=== PATIENT | female | born 1945 | race Asian ===

== ENCOUNTER 2019-01-25 09:12 | Inpatient (IN) | payer MEDICARE ==
[2019-01-25 09:38] LABS: Basophils # (Auto) 0.1 K/mm3 (0.0-0.1); Basophils % (Auto) 1.5 % (0.0-1.8); Eosinophils # (Auto) 0.1 K/mm3 (0.0-0.4); Eosinophils % (Auto) 2.1 % (0.0-4.3); Hematocrit 27.9 % (30.3-42.9); Lymphocytes # (Auto) 0.7 K/mm3 (1.2-5.4); Lymphocytes % (Auto) 13.8 % (13.4-35.0); Mean Corpuscular HGB Conc 32 % (30-34); Mean Corpuscular Volume 90 fl (79-97); Monocytes # (Auto) 0.4 K/mm3 (0.0-0.8); Monocytes % (Auto) 7.3 % (0.0-7.3); Platelet Count 345 K/mm3 (140-440); Red Blood Count 3.09 M/mm3 (3.65-5.03)
[2019-01-25 10:01] LABS: Albumin 2.8 g/dL (3.9-5)
[2019-01-25 10:13] LABS: Calcium 5.6 mg/dL (8.4-10.2)
--- NOTE | 2019-01-25 11:12 | Emergency Department Report ---
ED General Adult HPI - General Chief complaint: High BP Stated complaint: KIDNEY DIALYSIS/DOC ORDERED Time Seen by Provider: 01/25/19 10:43 Source: patient Mode of arrival: Ambulatory Limitations: No Limitations - History of Present Illness Initial comments: 73-year-old female with a past medical history diabetes and hypertension presents to the Hospital complains of needing dialysis. Patient states that Dr. Mckeon sent her to the hospital for dialysis. After discussion with [facility] Nurse practitioner for Dr. Mckeon is seems that Dr. Mckeon has been trying to convince the patient since July that she needed to consider dialysis. Apparently recently she went Dr. Santiago for "second opinion was subsequently sent to the ER for treatment. Patient complains of feeling fatigued and tired but denies any pain or shortness of breath. Patient states she is not having about needing dialysis and is hopeful that she will get a kidney transplant. Severity scale (0 -10): 0 - Related Data Home Medications Medication Instructions Recorded Confirmed Last Taken Carvedilol [Coreg] 12.5 mg PO BID 10/05/16 10/05/16 Unknown Insulin NPH/Regular [Novolin 70/30] 20 unit SQ QAM 10/05/16 10/05/16 Unknown Levothyroxine [Synthroid] 50 mcg PO QAM 10/05/16 10/05/16 Unknown Lisinopril [Zestril] 40 mg PO QDAY 10/05/16 10/05/16 Unknown glipiZIDE [Glucotrol] 10 mg PO QDAY 10/05/16 10/05/16 Unknown Allergies Allergy/AdvReac Type Severity Reaction Status Date / Time No Known Allergies Allergy Unverified 10/05/16 15:27 ED Review of Systems ROS: Stated complaint: KIDNEY DIALYSIS/DOC ORDERED Other details as noted in HPI ED Past Medical Hx - Past Medical History Previous Medical History?: Yes Hx Hypertension: Yes Hx Diabetes: Yes Hx Renal Disease: Yes ("abnormal liver function") - Surgical History Past Surgical History?: Yes Additional Surgical History: - Social History Smoking Status: Never Smoker Substance Use Type: None - Medications Home Medications: Home Medications Medication Instructions Recorded Confirmed Last Taken Type Carvedilol [Coreg] 12.5 mg PO BID 10/05/16 10/05/16 Unknown History Insulin NPH/Regular [Novolin 70/30] 20 unit SQ QAM 10/05/16 10/05/16 Unknown History Levothyroxine [Synthroid] 50 mcg PO QAM 10/05/16 10/05/16 Unknown History Lisinopril [Zestril] 40 mg PO QDAY 10/05/16 10/05/16 Unknown History glipiZIDE [Glucotrol] 10 mg PO QDAY 10/05/16 10/05/16 Unknown History ED Physical Exam - General Limitations: No Limitations ED Course Vital Signs 01/25/19 09:22 Temperature 98.2 F Pulse Rate 71 Respiratory 16 Rate Blood Pressure 194/90 O2 Sat by Pulse 96 Oximetry - Consultations Consultation #1: 01/25/19 11:17 Case discussed with Pushpa TAO for Dr. Mckeon who confirmed that they sent patient did not send patient to the ER today but patient will need emergent dialysis 01/25/19 11:28 kary with vascular paged. 01/25/19 11:40 case d/w with kary who will evaluate pt to determine if access can be placed later today or tomorrow ED Medical Decision Making - Lab Data Result diagrams: 01/25/19 09:28 01/25/19 09:31 Lab Results 01/25/19 01/25/19 Range/Units 09:28 09:31 WBC 4.9 (4.5-11.0) K/mm3 RBC 3.09 L (3.65-5.03) M/mm3 Hgb 9.0 L (10.1-14.3) gm/dl Hct 27.9 L (30.3-42.9) % MCV 90 (79-97) fl MCH 29 (28-32) pg MCHC 32 (30-34) % RDW 16.0 H (13.2-15.2) % Plt Count 345 (140-440) K/mm3 Lymph % (Auto) 13.8 (13.4-35.0) % Harnett % (Auto) 7.3 (0.0-7.3) % Eos % (Auto) 2.1 (0.0-4.3) % Baso % (Auto) 1.5 (0.0-1.8) % Lymph # 0.7 L (1.2-5.4) K/mm3 Harnett # 0.4 (0.0-0.8) K/mm3 Eos # 0.1 (0.0-0.4) K/mm3 Baso # 0.1 (0.0-0.1) K/mm3 Seg Neutrophils % 75.3 H (40.0-70.0) % Seg Neutrophils # 3.7 (1.8-7.7) K/mm3 Sodium 139 (137-145) mmol/L Potassium 5.2 H (3.6-5.0) mmol/L Chloride 106.7 (98-107) mmol/L Carbon Dioxide 15 L (22-30) mmol/L Anion Gap 23 mmol/L BUN 103 H (7-17) mg/dL Creatinine 12.6 H (0.7-1.2) mg/dL Estimated GFR 3 ml/min BUN/Creatinine Ratio 8 % Glucose 161 H (65-100) mg/dL Calcium 5.6 L* (8.4-10.2) mg/dL Total Bilirubin 0.20 (0.1-1.2) mg/dL AST 37 (5-40) units/L ALT 103 H (7-56) units/L Alkaline Phosphatase 123 (35-129) units/L Total Protein 5.6 L (6.3-8.2) g/dL Albumin 2.8 L (3.9-5) g/dL Albumin/Globulin Ratio 1.0 % - Medical Decision Making Patient will be admitted to the hospital to initiate dialysis. Case discussed with Pushpa with Dr. Díaz and vascular consulted. NPO except for meds - Differential Diagnosis end-stage renal disease, hyperkalemia, volume overload Critical Care Time: No Critical care attestation.: If time is entered above; I have spent that time in minutes in the direct care of this critically ill patient, excluding procedure time. ED Disposition Clinical Impression: ESRD needing dialysis, Uremia, HTN (hypertension), Diabetes, Anemia Disposition: OP ADMIT IP TO THIS HOSP Is pt being admited?: Yes Condition: Stable Time of Disposition: 11:11 (Dr Diana/hosp)
[2019-01-25] MEDS ORDERED: NACL 0.9% 100 ML IV PRN (11:41)
[2019-01-25] MEDS ORDERED: TYLENOL PO PRN (11:47)
[2019-01-25] MEDS ORDERED: SODIUM CHLORIDE FLUSH SYRINGE 10 ML IV PRN (11:47)
[2019-01-25] MEDS ORDERED: KIONEX PO ONE (11:50)
[2019-01-25] MEDS ORDERED: APRESOLINE IV PRN (12:08)
--- NOTE | 2019-01-25 12:08 | History and Physical Report ---
History of Present Illness Chief complaint: I need dialysis History of present illness: 73 YO Female with ESRD previously non accepting of dialysis, HTN, DM presents to ED for evaluation. Pt states that she was informed several months ago that she needed dialysis but wanted to undergo kidney transplantation. Pt states that she has experienced nausea, fatigue, generalized weakness, and not feeling well over the past 1 month with worsening symptoms over the past. Pt awoke this morning "feeling bad" and decided to undergo dialysis as previously advised. Pt transported to [facility] ED via private vehicle. Pt seen and evaluated in ED and found to have ESRD, Acidosis, Hyperkalemia without EKG changes, and Anemia of Chronic Disease. Pt admitted to medical floor with remote telemetry. Nephrology consulted in ED. Vascular Surgery consulted for permacath placement. No prior admissions for review. All listed medication reconciled at time of admission. Pt denies fever, chills, CP, Palpitations, shortness of breath, leg swelling, calf pain, prolonged travel/immobility, individual/family history of DVT/PE/Blood Clotting Disorder, vertigo, headache, vision changes, extremity numbness, or recent ill contacts. Past History Past Medical History: diabetes, ESRD, hypertension, hypothyroidism Past Surgical History: Social history: . denies: smoking, alcohol abuse, prescription drug abuse Family history: diabetes, hypertension Medications and Allergies Allergies Allergy/AdvReac Type Severity Reaction Status Date / Time No Known Allergies Allergy Unverified 10/05/16 15:27 Home Medications Medication Instructions Recorded Confirmed Last Taken Type Carvedilol [Coreg] 25 mg PO BID 01/25/19 01/25/19 Unknown History Furosemide [Lasix TAB] 40 mg PO QDAY 01/25/19 01/25/19 Unknown History Hydralazine HCl 50 mg PO TID 01/25/19 01/25/19 Unknown History Insulin Glargine,Hum.rec.anlog 14 units SQ DAILY 01/25/19 01/25/19 Unknown History [Lantus] Levothyroxine [Synthroid] 75 mcg PO QAM 01/25/19 01/25/19 Unknown History Rosuvastatin Calcium 5 mg PO DAILY 01/25/19 01/25/19 Unknown History glipiZIDE [Glipizide] 5 mg PO DAILY 01/25/19 01/25/19 Unknown History Review of Systems Constitutional: no weight loss, no weight gain, no fever, no chills Ears, nose, mouth and throat: no ear pain, no ear discharge, no tinnitis, no decreased hearing, no nose pain Breasts: no change in shape, no swelling, no mass Cardiovascular: no chest pain, no orthopnea, no palpitations, no rapid/irregular heart beat, no edema Respiratory: no cough, no cough with sputum, no excessive sputum, no hemoptysis, no shortness of breath Gastrointestinal: nausea, no vomiting, no diarrhea, no constipation Genitourinary Female: no pelvic pain, no flank pain, no menorrhagia, no dysuria, no urinary frequency, no urgency Rectal: no pain, no incontinence, no bleeding Musculoskeletal: no neck pain, no shooting arm pain, no arm numbness/tingling, no low back pain, no shooting leg pain, no leg numbness/tingling Integumentary: no rash, no pruritis, no redness, no sores, no wounds Neurological: no paralysis, no weakness, no parathesias, no numbness, no tingling Psychiatric: no anxiety, no memory loss, no change in sleep habits, no sleep disturbances, no insomnia, no hypersomnia, no change in appetite Endocrine: no cold intolerance, no heat intolerance, no polyuria, no nocturia, no excessive sweating Hematologic/Lymphatic: no easy bruising, no easy bleeding, no lymphadenopathy, no lymphedema Allergic/Immunologic: no urticaria, no allergic rhinitis, no wheezing, no persistent infections, no anaphylaxis, no angioedema Exam - Constitutional Vitals: Temp Pulse Resp BP Pulse Ox 98.2 F 71 16 194/90 96 01/25/19 09:22 01/25/19 09:22 01/25/19 09:22 01/25/19 09:22 01/25/19 09:22 General appearance: Present: no acute distress - EENT Eyes: Present: PERRL ENT: hearing intact, clear oral mucosa - Neck Neck: Present: supple, normal ROM - Respiratory Respiratory effort: normal Respiratory: bilateral: CTA - Cardiovascular Heart Sounds: Present: S1 & S2. Absent: rub, click - Extremities Extremities: pulses symmetrical, No edema Peripheral Pulses: within normal limits - Abdominal General gastrointestinal: Present: soft, non-tender, non-distended, normal bowel sounds Female genitourinary: Present: normal - Integumentary Integumentary: Present: clear, warm, dry - Musculoskeletal Musculoskeletal: gait normal, strength equal bilaterally - Psychiatric Psychiatric: appropriate mood/affect, intact judgment & insight - Neurologic Neurologic: CNII-XII intact, moves all extremities Results - Labs CBC & Chem 7: 01/25/19 09:28 01/25/19 09:31 Labs: Abnormal lab results 01/25/19 01/25/19 Range/Units 09:28 09:31 RBC 3.09 L (3.65-5.03) M/mm3 Hgb 9.0 L (10.1-14.3) gm/dl Hct 27.9 L (30.3-42.9) % RDW 16.0 H (13.2-15.2) % Lymph # 0.7 L (1.2-5.4) K/mm3 Seg Neutrophils % 75.3 H (40.0-70.0) % Potassium 5.2 H (3.6-5.0) mmol/L Carbon Dioxide 15 L (22-30) mmol/L BUN 103 H (7-17) mg/dL Creatinine 12.6 H (0.7-1.2) mg/dL Glucose 161 H (65-100) mg/dL Calcium 5.6 L* (8.4-10.2) mg/dL ALT 103 H (7-56) units/L Total Protein 5.6 L (6.3-8.2) g/dL Albumin 2.8 L (3.9-5) g/dL Assessment and Plan - Patient Problems (1) ESRD needing dialysis Current Visit: Yes Status: Acute Plan to address problem: Nephrology consulted for dialysis, dialysis as per renal team, Vascular surgery consulted (2) Acidosis Current Visit: Yes Status: Acute Plan to address problem: IV sodium bicarbonate x 1, repeat bmp in am. (3) Diabetes Current Visit: Yes Status: Acute Plan to address problem: ADA diet, insulin, accu check, discontinue oral antihyperglycemic medication during hospital stay. (4) HTN (hypertension) Current Visit: Yes Status: Acute Qualifiers: Hypertension type: essential hypertension Qualified Code(s): I10 - Essential (primary) hypertension Plan to address problem: monitor BP q shift, continue prehospital antihypertensive therapy, IV hydralaz ine prn (5) Hyperkalemia Current Visit: Yes Status: Acute Plan to address problem: No EKG changes, kayexelate, Calcium gluconate, repeat bmp in am. (6) DVT prophylaxis Current Visit: Yes Status: Acute Plan to address problem: SCD to BLE while in bed, prophylactic heparin
[2019-01-25] MEDS ORDERED: D50W (25GM) Syringe IV PRN (12:09)
[2019-01-25] MEDS ORDERED: KIONEX ONE (12:20)
[2019-01-25 12:23] LABS: INR 0.95 (0.87-1.13)
[2019-01-25] MEDS ORDERED: CALCIUM GLUCONATE 1,000 MG in NACL 0.9% 100 ML IV ONE (12:30)
--- NOTE | 2019-01-25 15:31 | Consultation ---
<CLEMENTE OWENS - Last Filed: 01/25/19 15:26> History of Present Illness - Reason for Consult Consult date: 01/25/19 Provide Hemo-dialysis access Requesting physician: RUSSEL JONES - History of Present Illness This pt is a 73 yo female admitted via the ER due to progression of renal failure with need to begin hemodialysis. The pt has been followed by Nephrology service, who recommended the pt consider HD over the last 7 months. The pt has been resistant hoping her kidney function would improve. She was evaluated by another service for a second opinion, who agreed she would need to start HD. She was sent to the ER where she has since been admitted. A vascular surgery consult was requested to evaluated for Perma-cath insertion. Past History Past Medical History: diabetes, ESRD, hypertension, hypothyroidism Past Surgical History: , Other (Thyroidectomy, eye surgery due to hemorrhage and detatched retina ) Social history: . denies: smoking, alcohol abuse, prescription drug abuse Family history: diabetes, hypertension Medications and Allergies Allergies Allergy/AdvReac Type Severity Reaction Status Date / Time No Known Allergies Allergy Unverified 10/05/16 15:27 Home Medications Medication Instructions Recorded Confirmed Last Taken Type Carvedilol [Coreg] 25 mg PO BID 01/25/19 01/25/19 Unknown History Furosemide [Lasix TAB] 40 mg PO QDAY 01/25/19 01/25/19 Unknown History Hydralazine HCl 50 mg PO TID 01/25/19 01/25/19 Unknown History Insulin Glargine,Hum.rec.anlog 14 units SQ DAILY 01/25/19 01/25/19 Unknown History [Lantus] Levothyroxine [Synthroid] 75 mcg PO QAM 01/25/19 01/25/19 Unknown History Rosuvastatin Calcium 5 mg PO DAILY 01/25/19 01/25/19 Unknown History glipiZIDE [Glipizide] 5 mg PO DAILY 01/25/19 01/25/19 Unknown History Active Meds: Active Medications Acetaminophen (Tylenol) 650 mg PO Q4H PRN PRN Reason: Pain MILD(1-3)/Fever >100.5/DUNCAN Carvedilol (Coreg) 12.5 mg PO BID [facility] Dextrose (D50w (25gm) Syringe) 50 ml IV PRN PRN PRN Reason: Hypoglycemia Heparin Sodium (Porcine) (Heparin) 5,000 unit SUB-Q Q12HR [facility] Hydralazine HCl (Apresoline) 10 mg IV Q4HR PRN PRN Reason: HTN SYS>155 Sodium Chloride (Nacl 0.9%) 100 mls @ 999 mls/hr IV SANTOS PRN PRN Reason: Hypotension Insulin Human Lispro (Humalog) 0 unit SUB-Q Q6HR [facility]; Protocol Levothyroxine Sodium (Synthroid) 50 mcg PO DAILY@0600 [facility] Lisinopril (Zestril) 40 mg PO QDAY [facility] Ondansetron HCl (Zofran) 4 mg IV Q8H PRN PRN Reason: Nausea And Vomiting Sodium Chloride (Sodium Chloride Flush Syringe 10 Ml) 10 ml IV BID [facility]E Sodium Chloride (Sodium Chloride Flush Syringe 10 Ml) 10 ml IV PRN PRN PRN Reason: LINE FLUSH Review of Systems All systems: negative Exam - Constitutional Vitals: Temp Pulse Resp BP Pulse Ox 98.1 F 66 18 174/83 95 01/25/19 13:35 01/25/19 13:35 01/25/19 13:35 01/25/19 13:35 01/25/19 13:35 General appearance: Present: no acute distress - EENT Eyes: Present: EOM intact ENT: hearing intact - Neck Neck: Present: supple - Respiratory Respiratory effort: normal - Extremities Extremities: no ischemia, No edema - Psychiatric Psychiatric: appropriate mood/affect, intact judgment & insight, cooperative - Neurologic Neurologic: no focal deficits Results - Labs CBC & Chem 7: 01/25/19 09:28 01/25/19 09:31 Labs: Abnormal lab results 01/25/19 01/25/19 Range/Units 09:28 09:31 RBC 3.09 L (3.65-5.03) M/mm3 Hgb 9.0 L (10.1-14.3) gm/dl Hct 27.9 L (30.3-42.9) % RDW 16.0 H (13.2-15.2) % Lymph # 0.7 L (1.2-5.4) K/mm3 Seg Neutrophils % 75.3 H (40.0-70.0) % Potassium 5.2 H (3.6-5.0) mmol/L Carbon Dioxide 15 L (22-30) mmol/L BUN 103 H (7-17) mg/dL Creatinine 12.6 H (0.7-1.2) mg/dL Glucose 161 H (65-100) mg/dL Calcium 5.6 L* (8.4-10.2) mg/dL ALT 103 H (7-56) units/L Total Protein 5.6 L (6.3-8.2) g/dL Albumin 2.8 L (3.9-5) g/dL Assessment and Plan This pt was admitted via the ER due to ESRD needing to start HD. A vascular surgery consult was requested to evaluate for HD access/PermaCath. I explained the procedure, including all risk, benefits, and alternatives. We also discussed the risk of senior care catheter based HD. I explained that if she ultimately will need local intermodal truck driver HD, then we can evaluate her for fistula creation. She is right hand dominant, therefore I recommended no further venipunctures in her LUE. After contemplating the proposed procedure, she has agreed to proceed. This will be scheduled for the industrial laborer in the am. She will be NPO after [place] except meds. - Patient Problems (1) ESRD needing dialysis Current Visit: Yes Status: Acute (2) Hyperkalemia Current Visit: Yes Status: Acute (3) Diabetes Current Visit: Yes Status: Acute (4) HTN (hypertension) Current Visit: Yes Status: Acute Qualifiers: Hypertension type: essential hypertension Qualified Code(s): I10 - Essential (primary) hypertension (5) Uremia Current Visit: Yes Status: Acute (6) Anemia Current Visit: Yes Status: Acute <PRISCILA RENDON - Last Filed: 01/26/19 08:57> Medications and Allergies Active Meds: Active Medications Acetaminophen (Tylenol) 650 mg PO Q4H PRN PRN Reason: Pain MILD(1-3)/Fever >100.5/DUNCAN Calcium Carbonate/Glycine (Tums) 1,000 mg PO TID [facility] Last Admin: 01/25/19 21:13 Dose: 1,000 mg Documented by: Carvedilol (Coreg) 12.5 mg PO BID [facility] Last Admin: 01/25/19 22:22 Dose: 12.5 mg Documented by: Dextrose (D50w (25gm) Syringe) 50 ml IV PRN PRN PRN Reason: Hypoglycemia Last Admin: 01/26/19 06:37 Dose: 50 ml Documented by: Heparin Sodium (Porcine) (Heparin) 5,000 unit SUB-Q Q12HR [facility] Last Admin: 01/25/19 22:23 Dose: 5,000 unit Documented by: Hydralazine HCl (Apresoline) 10 mg IV Q4HR PRN PRN Reason: HTN SYS>155 Sodium Chloride (Nacl 0.9%) 100 mls @ 999 mls/hr IV SANTOS PRN PRN Reason: Hypotension Sodium Chloride (Nacl 0.9% 500 Ml) 500 mls @ 50 mls/hr IV DIRECT [facility] Last Admin: 01/26/19 08:35 Dose: 0 mls Documented by: Insulin Human Lispro (Humalog) 0 unit SUB-Q Q6HR [facility]; Protocol Last Admin: 01/26/19 06:41 Dose: Not Given Documented by: Levothyroxine Sodium (Synthroid) 50 mcg PO DAILY@0600 [facility] Last Admin: 01/26/19 06:02 Dose: Not Given Documented by: Lisinopril (Zestril) 40 mg PO QDAY [facility] Ondansetron HCl (Zofran) 4 mg IV Q8H PRN PRN Reason: Nausea And Vomiting Last Admin: 01/26/19 00:36 Dose: 4 mg Documented by: Sodium Chloride (Sodium Chloride Flush Syringe 10 Ml) 10 ml IV BID [facility] Last Admin: 01/25/19 22:24 Dose: 10 ml Documented by: Sodium Chloride (Sodium Chloride Flush Syringe 10 Ml) 10 ml IV PRN PRN PRN Reason: LINE FLUSH Exam - Constitutional Vitals: Temp Pulse Resp BP Pulse Ox 98.3 F 64 17 184/80 95 01/26/19 07:47 01/26/19 07:47 01/26/19 07:47 01/26/19 07:47 01/26/19 07:47 Results - Labs CBC & Chem 7: 01/25/19 09:28 01/25/19 09:31 Labs: Abnormal lab results 01/25/19 01/25/19 01/25/19 Range/Units 09:28 09:31 15:47 RBC 3.09 L (3.65-5.03) M/mm3 Hgb 9.0 L (10.1-14.3) gm/dl Hct 27.9 L (30.3-42.9) % RDW 16.0 H (13.2-15.2) % Lymph # 0.7 L (1.2-5.4) K/mm3 Seg Neutrophils % 75.3 H (40.0-70.0) % Potassium 5.2 H (3.6-5.0) mmol/L Carbon Dioxide 15 L (22-30) mmol/L BUN 103 H (7-17) mg/dL Creatinine 12.6 H (0.7-1.2) mg/dL Glucose 161 H (65-100) mg/dL POC Glucose 153 H (70-105) Calcium 5.6 L* (8.4-10.2) mg/dL ALT 103 H (7-56) units/L Total Protein 5.6 L (6.3-8.2) g/dL Albumin 2.8 L (3.9-5) g/dL PTH Intact (15-65) pg/mL 01/25/19 01/25/19 01/25/19 Range/Units 16:11 16:28 23:05 RBC (3.65-5.03) M/mm3 Hgb (10.1-14.3) gm/dl Hct (30.3-42.9) % RDW (13.2-15.2) % Lymph # (1.2-5.4) K/mm3 Seg Neutrophils % (40.0-70.0) % Potassium (3.6-5.0) mmol/L Carbon Dioxide (22-30) mmol/L BUN (7-17) mg/dL Creatinine (0.7-1.2) mg/dL Glucose (65-100) mg/dL POC Glucose 128 H 168 H (70-105) Calcium (8.4-10.2) mg/dL ALT (7-56) units/L Total Protein (6.3-8.2) g/dL Albumin (3.9-5) g/dL PTH Intact 268.2 H (15-65) pg/mL 01/26/19 01/26/19 01/26/19 Range/Units 00:36 06:25 07:03 RBC (3.65-5.03) M/mm3 Hgb (10.1-14.3) gm/dl Hct (30.3-42.9) % RDW (13.2-15.2) % Lymph # (1.2-5.4) K/mm3 Seg Neutrophils % (40.0-70.0) % Potassium (3.6-5.0) mmol/L Carbon Dioxide (22-30) mmol/L BUN (7-17) mg/dL Creatinine (0.7-1.2) mg/dL Glucose (65-100) mg/dL POC Glucose 119 H 61 L 185 H (70-105) Calcium (8.4-10.2) mg/dL ALT (7-56) units/L Total Protein (6.3-8.2) g/dL Albumin (3.9-5) g/dL PTH Intact (15-65) pg/mL Assessment and Plan Review with assessment and conclusions. Permacath will be placed for initiation of dialysis.
--- NOTE | 2019-01-25 15:50 | Consultation ---
History of Present Illness - Reason for Consult Consult date: 01/25/19 end stage renal disease Requesting physician: RICHARD PALACIOS - History of Present Illness 73 YO Female with ESRD previously non accepting of dialysis, HTN, DM presents to ED for evaluation. Pt states that she was informed several months ago that she needed dialysis but wanted to undergo kidney transplantation. Pt states that she has experienced nausea, fatigue, generalized weakness, and not feeling well over the past 1 month with worsening symptoms over the past. Pt awoke this morning "feeling bad" and decided to undergo dialysis as previously advised. Pt transported to [facility] ED via private vehicle. Pt seen and evaluated in ED and found to have ESRD, Acidosis, Hyperkalemia without EKG changes, and Anemia of Chronic Disease. Pt admitted to medical floor with remote telemetry. Nephrology con sulted in ED. Vascular Surgery consulted for permacath placement. No prior admissions for review. All listed medication reconciled at time of admission. Pt denies fever, chills, CP, Palpitations, shortness of breath, leg swelling, calf pain, prolonged travel/immobility, individual/family history of DVT/PE/Blood Clotting Disorder, vertigo, headache, vision changes, extremity numbness, or recent ill contacts. Past History Past Medical History: diabetes, ESRD, hypertension, hypothyroidism Past Surgical History: Social history: . denies: smoking, alcohol abuse, prescription drug abuse Family history: diabetes, hypertension Medications and Allergies Allergies Allergy/AdvReac Type Severity Reaction Status Date / Time No Known Allergies Allergy Unverified 10/05/16 15:27 Home Medications Medication Instructions Recorded Confirmed Last Taken Type Carvedilol [Coreg] 25 mg PO BID 01/25/19 01/25/19 Unknown History Furosemide [Lasix TAB] 40 mg PO QDAY 01/25/19 01/25/19 Unknown History Hydralazine HCl 50 mg PO TID 01/25/19 01/25/19 Unknown History Insulin Glargine,Hum.rec.anlog 14 units SQ DAILY 01/25/19 01/25/19 Unknown History [Lantus] Levothyroxine [Synthroid] 75 mcg PO QAM 01/25/19 01/25/19 Unknown History Rosuvastatin Calcium 5 mg PO DAILY 01/25/19 01/25/19 Unknown History glipiZIDE [Glipizide] 5 mg PO DAILY 01/25/19 01/25/19 Unknown History Review of Systems Constitutional: no weight loss, no weight gain, no fever, no chills Ears, nose, mouth and throat: no ear pain, no ear discharge, no tinnitis, no decreased hearing, no nose pain Breasts: no change in shape, no swelling, no mass Cardiovascular: no chest pain, no orthopnea, no palpitations, no rapid/irregular heart beat, no edema Respiratory: no cough, no cough with sputum, no excessive sputum, no hemoptysis, no shortness of breath Gastrointestinal: nausea, no vomiting, no diarrhea, no constipation Genitourinary Female: no pelvic pain, no flank pain, no menorrhagia, no dysuria, no urinary frequency, no urgency Rectal: no pain, no incontinence, no bleeding Musculoskeletal: no neck pain, no shooting arm pain, no arm numbness/tingling, no low back pain, no shooting leg pain, no leg numbness/tingling Integumentary: no rash, no pruritis, no redness, no sores, no wounds Neurological: no paralysis, no weakness, no parathesias, no numbness, no tingling Psychiatric: no anxiety, no memory loss, no change in sleep habits, no sleep disturbances, no insomnia, no hypersomnia, no change in appetite Endocrine: no cold intolerance, no heat intolerance, no polyuria, no nocturia, no excessive sweating Hematologic/Lymphatic: no easy bruising, no easy bleeding, no lymphadenopathy, no lymphedema Allergic/Immunologic: no urticaria, no allergic rhinitis, no wheezing, no persistent infections, no anaphylaxis, no angioedema Past History Past Medical History: diabetes, ESRD, hypertension, hypothyroidism Past Surgical History: , Other (Thyroidectomy, eye surgery due to hemorrhage and detatched retina ) Social history: . denies: smoking, alcohol abuse, prescription drug abuse Family history: diabetes, hypertension Medications and Allergies Allergies Allergy/AdvReac Type Severity Reaction Status Date / Time No Known Allergies Allergy Unverified 10/05/16 15:27 Home Medications Medication Instructions Recorded Confirmed Last Taken Type Carvedilol [Coreg] 25 mg PO BID 01/25/19 01/25/19 Unknown History Furosemide [Lasix TAB] 40 mg PO QDAY 01/25/19 01/25/19 Unknown History Hydralazine HCl 50 mg PO TID 01/25/19 01/25/19 Unknown History Insulin Glargine,Hum.rec.anlog 14 units SQ DAILY 01/25/19 01/25/19 Unknown History [Lantus] Levothyroxine [Synthroid] 75 mcg PO QAM 01/25/19 01/25/19 Unknown History Rosuvastatin Calcium 5 mg PO DAILY 01/25/19 01/25/19 Unknown History glipiZIDE [Glipizide] 5 mg PO DAILY 01/25/19 01/25/19 Unknown History Active Meds: Active Medications Acetaminophen (Tylenol) 650 mg PO Q4H PRN PRN Reason: Pain MILD(1-3)/Fever >100.5/DUNCAN Carvedilol (Coreg) 12.5 mg PO BID FEDE Dextrose (D50w (25gm) Syringe) 50 ml IV PRN PRN PRN Reason: Hypoglycemia Heparin Sodium (Porcine) (Heparin) 5,000 unit SUB-Q Q12HR FEDE Hydralazine HCl (Apresoline) 10 mg IV Q4HR PRN PRN Reason: HTN SYS>155 Sodium Chloride (Nacl 0.9%) 100 mls @ 999 mls/hr IV SANTOS PRN PRN Reason: Hypotension Insulin Human Lispro (Humalog) 0 unit SUB-Q Q6HR FEDE; Protocol Levothyroxine Sodium (Synthroid) 50 mcg PO DAILY@0600 FEDE Lisinopril (Zestril) 40 mg PO QDAY FEDE Ondansetron HCl (Zofran) 4 mg IV Q8H PRN PRN Reason: Nausea And Vomiting Sodium Chloride (Sodium Chloride Flush Syringe 10 Ml) 10 ml IV BID FEDE Sodium Chloride (Sodium Chloride Flush Syringe 10 Ml) 10 ml IV PRN PRN PRN Reason: LINE FLUSH Exam - Vital Signs Vital signs: Vital Signs Temp Pulse Resp BP Pulse Ox 98.2 F 71 16 194/90 96 01/25/19 09:22 01/25/19 09:22 01/25/19 09:22 01/25/19 09:22 01/25/19 09:22 - Physical Exam Narrative exam: General appearance: Present: no acute distress - EENT Eyes: Present: PERRL ENT: hearing intact, clear oral mucosa - Neck Neck: Present: supple, normal ROM - Respiratory Respiratory effort: normal Respiratory: bilateral: CTA - Cardiovascular Heart Sounds: Present: S1 & S2. Absent: rub, click - Extremities Extremities: pulses symmetrical, No edema Peripheral Pulses: within normal limits - Abdominal General gastrointestinal: Present: soft, non-tender, non-distended, normal bowel sounds Female genitourinary: Present: normal - Integumentary Integumentary: Present: clear, warm, dry - Musculoskeletal Musculoskeletal: gait normal, strength equal bilaterally - Psychiatric Psychiatric: appropriate mood/affect, intact judgment & insight - Neurologic Neurologic: CNII-XII intact, moves all extremities Results - Lab Results 01/25/19 09:28 01/25/19 09:31 Most recent lab results Calcium 5.6 mg/dL (8.4-10.2) L* 01/25/19 09:31 Assessment and Plan IMpression: * ESRD * Uremia * HTN * anemia in ESRD PLan: * intiated hemodialysis after access placement * outpatient hd placement * strict i/o * uf with hd as tolerated * daily lytes * epogen with HD * home once hd unit arranged
[2019-01-25 17:26] LABS: Hepatitis B Surface Antigen Non-Reactive (Negative); Hepatitis C Virus Antibody Non-Reactive (NonReactive)
[2019-01-25] MEDS: TUMS PO SCH (21:13)
[2019-01-25] MEDS: COREG PO SCH (22:22)
[2019-01-25] MEDS: HEPARIN SUB-Q SCH (22:23)
[2019-01-25] MEDS: SODIUM CHLORIDE FLUSH SYRINGE 10 ML IV SCH (22:24)
[2019-01-25] MEDS: HumaLOG SUB-Q SCH (23:21)
[2019-01-26] MEDS: ZOFRAN IV PRN (00:36)
[2019-01-26] MEDS ORDERED: SYNTHROID PO SCH (06:00)
[2019-01-26] MEDS: HumaLOG SUB-Q SCH ×4 (06:41→22:53)
[2019-01-26] MEDS ORDERED: NACL 0.9% 500 ML 500 ML IV SCH (08:00)
[2019-01-26] MEDS ORDERED: VERSED ONE (08:16)
[2019-01-26] MEDS ORDERED: SUBLIMAZE ONE (08:16)
[2019-01-26] MEDS ORDERED: HEPARIN/NS 5000 UNIT/500ML(CATH LAB) 500 ML IR ONE (08:17)
[2019-01-26] MEDS ORDERED: XYLOCAINE 1%/ EPI 1:100,000 INFILTRATI ONE (08:18)
[2019-01-26] MEDS ORDERED: ANCEF/STERILE WATER 2 GM/20 ML 2 GM/20 ML SYRINGE IV ONE (08:19)
[2019-01-26] MEDS: HEPARIN 10,000 UNITS/10 ML ONE ×2 (08:49→08:50)
--- NOTE | 2019-01-26 08:59 | Operative Report ---
Operative Report Operative Report: Date of procedure: 01/26/2019 Pre-operative diagnosis: ESRD Post-operative diagnosis: same Procedure name(s): 1. US guided puncture of the right internal jugular vein 2. Placement of right internal jugular permacath (Glidepath 19 cm) 3. Fluoroscopic supervision Surgeon: Demetrius Dominguez MD, FACS Recordak Operator: none Anesthesia: local with sedation; Sedation start: 834 Sedation end: 08 Total sedation time: 20 or 2 anesthesia units EBL: minimal Operative indication: Patient is a 73 yo woman who requires hemodialysis access. Findings: Good flow from both ports. Catheter located at the cavoatrial junction. Procedure: The patient was placed on the table in the supine position. The area over the right neck and chest was prepped with ChloraPrep solution and draped in usual sterile fashion. 2% lidocaine was used for local anesthesia. Under real-time ultrasound guidance the right internal jugular vein was identified and cannulated. A guidewire was advanced into the central circulation. A tunnel was made over the anterior chest using the tunneling device in the kit. The catheter was then tunneled between the 2 incisions. Using a series of dilators, the track into the jugular vein was dilated. The introducer sheath was then placed. The catheter was placed through the introducer sheath which was then removed. The catheter tip was placed at the cavoatrial junction. The catheters were aspirated with excellent flow from both ports. Both ports flushed easily. They were then filled to their stated volume with 1000 unit per milliliter heparin. Closure at the insertion site was done with 4-0 subcuticular PDS. The catheter was sewn to the skin with 2-0 Proline. Sterile dressings were applied. The patient tolerated the procedure well.
[2019-01-26] MEDS: TUMS PO SCH ×3 (09:08→21:21)
--- NOTE | 2019-01-26 10:47 | Progress Note ---
Assessment and Plan Assessment and plan: 73F w pmh of ESRD who was previously refusing dialysis, presents with worsening Uremia. 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 soft drink powder mixer consult cont SSI, restarted home lantus, fup a1c dvt ppx- heparin History Interval history: Review of systems Constitutional: No fevers, no malaise, no joint pains CVS: No chest pain, no orthopnea, no dyspnea on exertion, no pedal edema GI: No abdominal pain, no diarrhea, no vomiting, no constipation Respiratory: No shortness of breath, no wheezing, no coughing Hospitalist Physical - Physical exam Narrative exam: General.: Appears well, no distress, nontoxic HEENT: Moist mucous membranes, extraocular muscles intact, no lymphadenopathy Neck: supple Cardiac: S1-S2 heard Lungs: clear to auscultation bilaterally Abdomen: soft , nontender, nondistended, bowel sounds positive Extremities: no edema clubbing or cyanosis Skin: no rash or lesions Neurologic: no gross focal deficits Psych: calm, and cooperative - Constitutional Vitals: Temp Pulse Resp BP Pulse Ox 98.5 F 58 L 14 190/90 92 01/26/19 09:10 01/26/19 10:15 01/26/19 10:15 01/26/19 10:15 01/26/19 10:15 General appearance: Present: no acute distress Results - Labs CBC & Chem 7: 01/25/19 09:28 01/25/19 09:31 Labs: Laboratory Last Values WBC 4.9 K/mm3 (4.5-11.0) 01/25/19 09:28 RBC 3.09 M/mm3 (3.65-5.03) L 01/25/19 09:28 Hgb 9.0 gm/dl (10.1-14.3) L 01/25/19 09:28 Hct 27.9 % (30.3-42.9) L 01/25/19 09:28 MCV 90 fl (79-97) 01/25/19 09:28 MCH 29 pg (28-32) 01/25/19 09:28 MCHC 32 % (30-34) 01/25/19 09:28 RDW 16.0 % (13.2-15.2) H 01/25/19 09:28 Plt Count 345 K/mm3 (140-440) 01/25/19 09:28 Lymph % (Auto) 13.8 % (13.4-35.0) 01/25/19 09:28 [place] % (Auto) 7.3 % (0.0-7.3) 01/25/19 09:28 Eos % (Auto) 2.1 % (0.0-4.3) 01/25/19 09:28 Baso % (Auto) 1.5 % (0.0-1.8) 01/25/19 09:28 Lymph # 0.7 K/mm3 (1.2-5.4) L 01/25/19 09:28 [place] # 0.4 K/mm3 (0.0-0.8) 01/25/19 09:28 Eos # 0.1 K/mm3 (0.0-0.4) 01/25/19 09:28 Baso # 0.1 K/mm3 (0.0-0.1) 01/25/19 09:28 Seg Neutrophils % 75.3 % (40.0-70.0) H 01/25/19 09:28 Seg Neutrophils # 3.7 K/mm3 (1.8-7.7) 01/25/19 09:28 PT 13.3 Sec. (12.2-14.9) 01/25/19 11:55 INR 0.95 (0.87-1.13) 01/25/19 11:55 Sodium 139 mmol/L (137-145) 01/25/19 09:31 Potassium 5.2 mmol/L (3.6-5.0) H 01/25/19 09:31 Chloride 106.7 mmol/L (98-107) 01/25/19 09:31 Carbon Dioxide 15 mmol/L (22-30) L 01/25/19 09:31 Anion Gap 23 mmol/L 01/25/19 09:31 BUN 103 mg/dL (7-17) H 01/25/19 09:31 Creatinine 12.6 mg/dL (0.7-1.2) H 01/25/19 09:31 Estimated GFR 3 ml/min 01/25/19 09:31 BUN/Creatinine Ratio 8 % 01/25/19 09:31 Glucose 161 mg/dL (65-100) H 01/25/19 09:31 POC Glucose 185 (70-105) H 01/26/19 07:03 Calcium 5.6 mg/dL (8.4-10.2) L* 01/25/19 09:31 Total Bilirubin 0.20 mg/dL (0.1-1.2) 01/25/19 09:31 AST 37 units/L (5-40) 01/25/19 09:31 ALT 103 units/L (7-56) H 01/25/19 09:31 Alkaline Phosphatase 123 units/L (35-129) 01/25/19 09:31 Total Protein 5.6 g/dL (6.3-8.2) L 01/25/19 09:31 Albumin 2.8 g/dL (3.9-5) L 01/25/19 09:31 Albumin/Globulin Ratio 1.0 % 01/25/19 09:31 PTH Intact 268.2 pg/mL (15-65) H 01/25/19 16:11 Hepatitis A IgM Ab Non-reactive (NonReactive) 01/25/19 16:11 Hep Bs Antigen Non-reactive (Negative) 01/25/19 16:11 Hep B Core IgM Ab Non-reactive (NonReactive) 01/25/19 16:11 Hepatitis C Antibody Non-reactive (NonReactive) 01/25/19 16:11 Active Medications - Current Medications Current Medications: Generic Name Dose Route Start Last Admin Trade Name Freq PRN Reason Stop Dose Admin Acetaminophen 650 mg 01/25/19 11:47 Tylenol PO Q4H PRN Pain MILD(1-3)/Fever >100.5/DUNCAN Calcium Carbonate/Glycine 1,000 mg 01/25/19 20:00 01/26/19 09:08 Tums PO Not Given TID FEDE Carvedilol 12.5 mg 01/25/19 22:00 01/25/19 22:22 Coreg PO 12.5 mg BID FEDE Administration Dextrose 50 ml 01/25/19 12:09 01/26/19 06:37 D50w (25gm) Syringe IV 50 ml PRN PRN Administration Hypoglycemia Heparin Sodium (Porcine) 5,000 unit 01/26/19 14:00 Heparin SUB-Q Q8HR [facility] Hydralazine HCl 10 mg 01/25/19 12:08 Apresoline IV Q4HR PRN HTN SYS>155 Sodium Chloride 100 mls @ 999 mls/hr 01/25/19 11:41 Nacl 0.9% IV SANTOS PRN Hypotension Sodium Chloride 500 mls @ 50 mls/hr 01/26/19 08:00 01/26/19 08:35 Nacl 0.9% 500 Ml IV 0 mls DIRECT FEDE Administration Insulin Human Lispro 0 unit 01/25/19 18:00 01/26/19 06:41 Humalog SUB-Q Not Given Q6HR [facility] Protocol Levothyroxine Sodium 50 mcg 01/26/19 06:00 01/26/19 06:02 Synthroid PO Not Given DAILY@0600 [facility] Lisinopril 40 mg 01/26/19 10:00 Zestril PO QDAY [facility] Ondansetron HCl 4 mg 01/25/19 11:47 01/26/19 00:36 Zofran IV 4 mg Q8H PRN Administration Nausea And Vomiting Sodium Chloride 10 ml 01/25/19 22:00 01/25/19 22:24 Sodium Chloride Flush Syringe 10 Ml IV 10 ml BID FEDE Administration Sodium Chloride 10 ml 01/25/19 11:47 Sodium Chloride Flush Syringe 10 Ml IV PRN PRN LINE FLUSH
[2019-01-26] MEDS ORDERED: APRESOLINE ONE (11:06)
[2019-01-26] MEDS ORDERED: NACL 0.9% 500 ML 500 ML ONE (11:14)
[2019-01-26] MEDS ORDERED: APRESOLINE IV PRN (11:26)
--- NOTE | 2019-01-26 12:49 | XRay Report ---
ROUTINE CHEST, TWO VIEWS: HISTORY: Short of breath. Mild cardiomegaly, mild pulmonary venous congestion and small to medium left pleural effusion are identified. No obvious infiltrate. No pneumothorax. Right IJ dual-lumen catheter terminates in the superior right atrium. IMPRESSION: Mild volume overload/CHF.
[2019-01-26] MEDS ORDERED: NON-FORMULARY (Hydralazine Hcl [Hydralazine Hcl] 50 MG) PO SCH (14:00)
--- NOTE | 2019-01-26 15:04 | Progress Note ---
Assessment and Plan Impression: * ESRD * Uremia * Hypocalcemia * Secondary hyperparathyroidism * Anemia in ESRD * Hypertension * Type II DM PLan: * Daily HD x 3 - 1st treatment today * UF as tolerated - patient continues to make urine * Start Epogen TIW prn * Start Calcitriol 0.5mcg daily * CM consulted for outpatient dialysis clinic placement * Stable for d/c to home once outpatient HD arranged Subjective Date of service: 01/26/19 Interval history: Patient is s/p first HD treatment today. She has no complaints. States dialysis went well. Objective - Vital Signs Vital signs: Vital Signs - 12hr 01/26/19 01/26/19 01/26/19 06:13 07:47 09:10 Temperature 98.7 F 98.3 F 98.5 F Pulse Rate 69 64 61 Respiratory 20 17 13 Rate Blood Pressure 161/79 182/76 Blood Pressure 184/80 [Left] O2 Sat by Pulse 92 95 100 Oximetry 01/26/19 01/26/19 01/26/19 09:25 09:45 10:00 Temperature Pulse Rate 59 L 58 L 66 Respiratory 14 16 18 Rate Blood Pressure 157/73 157/70 170/79 Blood Pressure [Left] O2 Sat by Pulse 100 100 93 Oximetry 01/26/19 01/26/19 01/26/19 10:15 10:54 11:06 Temperature Pulse Rate 58 L 61 59 L Respiratory 14 10 L Rate Blood Pressure 190/90 195/86 197/89 Blood Pressure [Left] O2 Sat by Pulse 92 92 Oximetry 01/26/19 01/26/19 01/26/19 11:08 11:15 11:29 Temperature Pulse Rate 60 62 64 Respiratory 17 12 16 Rate Blood Pressure 197/89 180/77 152/58 Blood Pressure [Left] O2 Sat by Pulse 94 94 94 Oximetry 01/26/19 01/26/19 01/26/19 11:57 12:30 14:00 Temperature 97.6 F 98.2 F Pulse Rate 66 67 69 Respiratory 15 18 18 Rate Blood Pressure 171/74 156/75 175/88 Blood Pressure [Left] O2 Sat by Pulse 95 95 Oximetry - General Appearance General appearance: well-developed, well-nourished EENT: ATNC Respiratory: Present: Clear to Ascultation Cardiology: regular, S1S2 Gastrointestinal: normal, no tenderness, no distended Integumentary: no rash, warm and dry Neurologic: no focal deficit Musculoskeletal: other (no edema) Psychiatric: cooperative - Lab 01/25/19 09:28 01/25/19 09:31 Most recent lab results Calcium 5.6 mg/dL (8.4-10.2) L* 01/25/19 09:31 Medications & Allergies - Medications Allergies/Adverse Reactions: Allergies No Known Allergies Allergy (Unverified 10/05/16 15:27) Home Medications: Home Medications Medication Instructions Recorded Confirmed Last Taken Type Carvedilol [Coreg] 25 mg PO BID 01/25/19 01/25/19 Unknown History Furosemide [Lasix TAB] 40 mg PO QDAY 01/25/19 01/25/19 Unknown History Hydralazine HCl 50 mg PO TID 01/25/19 01/25/19 Unknown History Insulin Glargine,Hum.rec.anlog 14 units SQ DAILY 01/25/19 01/25/19 Unknown History [Lantus] Levothyroxine [Synthroid] 75 mcg PO QAM 01/25/19 01/25/19 Unknown History Rosuvastatin Calcium 5 mg PO DAILY 01/25/19 01/25/19 Unknown History glipiZIDE [Glipizide] 5 mg PO DAILY 01/25/19 01/25/19 Unknown History Active Medications: Generic Name Dose Route Start Last Admin Trade Name Freq PRN Reason Stop Dose Admin Acetaminophen 650 mg 01/25/19 11:47 Tylenol PO Q4H PRN Pain MILD(1-3)/Fever >100.5/DUNCAN Atorvastatin Calcium 10 mg 01/26/19 22:00 Lipitor PO QHS [facility] Calcium Carbonate/Glycine 1,000 mg 01/25/19 20:00 01/26/19 09:08 Tums PO Not Given TID [facility] Carvedilol 25 mg 01/26/19 22:00 Coreg PO BID FEDE Dextrose 50 ml 01/25/19 12:09 01/26/19 06:37 D50w (25gm) Syringe IV 50 ml PRN PRN Administration Hypoglycemia Furosemide 40 mg 01/27/19 06:00 Lasix PO DAILY@0600 FEDE Heparin Sodium (Porcine) 5,000 unit 01/26/19 14:00 Heparin SUB-Q Q8HR [facility] Hydralazine HCl 10 mg 01/25/19 12:08 01/26/19 11:06 Apresoline IV 10 mg Q4HR PRN Administration HTN SYS>155 Hydralazine HCl 50 mg 01/26/19 14:00 Apresoline PO Q8HR [facility] Hydralazine HCl 10 mg 01/26/19 11:26 Apresoline IV Q4HR PRN BP >160/100 Sodium Chloride 100 mls @ 999 mls/hr 01/25/19 11:41 Nacl 0.9% IV SANTOS PRN Hypotension Sodium Chloride 500 mls @ 50 mls/hr 01/26/19 08:00 01/26/19 08:35 Nacl 0.9% 500 Ml IV 0 mls DIRECT FEDE Administration Insulin Glargine 14 units 01/26/19 22:00 Lantus SUB-Q QHS [facility] Insulin Human Lispro 0 unit 01/26/19 11:30 01/26/19 13:00 Humalog SUB-Q Not Given ACHS [facility] Protocol Levothyroxine Sodium 75 mcg 01/27/19 06:00 Synthroid PO DAILY@0600 [facility] Lisinopril 40 mg 01/26/19 10:00 Zestril PO QDAY [facility] Nifedipine 60 mg 01/26/19 12:00 Procardia Xl PO Q12HR [facility] Ondansetron HCl 4 mg 01/25/19 11:47 01/26/19 00:36 Zofran IV 4 mg Q8H PRN Administration Nausea And Vomiting Sodium Chloride 10 ml 01/25/19 22:00 01/25/19 22:24 Sodium Chloride Flush Syringe 10 Ml IV 10 ml BID FEDE Administration Sodium Chloride 10 ml 01/25/19 11:47 Sodium Chloride Flush Syringe 10 Ml IV PRN PRN LINE FLUSH
[2019-01-26] MEDS: APRESOLINE PO SCH ×2 (16:49→21:21)
[2019-01-26] MEDS: HEPARIN SUB-Q SCH ×3 (16:51→21:20)
[2019-01-26] MEDS: PROCARDIA XL PO SCH ×2 (16:56→21:22)
[2019-01-26] MEDS: ZESTRIL PO SCH (16:56)
[2019-01-26] MEDS: SODIUM CHLORIDE FLUSH SYRINGE 10 ML IV SCH ×2 (16:57→21:25)
[2019-01-26] MEDS ORDERED: NACL 0.9 (PRIMING MACHINE ONLY DIALYSIS) MC ONE (18:02)
[2019-01-26] MEDS: COREG PO SCH ×2 (18:25→21:23)
[2019-01-26] MEDS ORDERED: NACL 0.9% 100 ML IV PRN (18:44)
[2019-01-26] MEDS ORDERED: PROCRIT IV PRN (18:44)
[2019-01-26] MEDS ORDERED: HEPARIN IV PRN (18:44)
[2019-01-26] MEDS: ROCALTROL PO SCH (21:22)
[2019-01-26] MEDS: LANTUS SUB-Q SCH (21:23)
--- NOTE | 2019-01-26 21:51 | Vascular Lab Report ---
PROCEDURE: BILATERAL UPPER EXTREMITY VEIN MAPPING TECHNIQUE: Duplex Doppler ultrasound of the BILATERAL upper extremity veins and incompetent perforat ors was attempted. Cristobal scale imaging with and without compression, spectral waveform analysis with a nd without augmentation, and color flow Doppler were employed. CPT 25974 HISTORY: . Preparation for vein harvesting. COMPARISONS: None . FINDINGS: RIGHT UPPER EXTREMITY: Brachial artery: 4.1 mm. 46.9 cm/s PSV Radial artery: 2.3 mm. PSV 45 cm/s Ulnar artery: 1.7 mm. PSV 36.2 cm/s Triphasic arterial waveforms are noted. BASILIC Vein Upper Arm: Proximal diameter: 3.5 mm Mid diameter: 3.1 mm Distal diameter: Unable to visualize due to the presence of IV line Antecubital fossa: 3.1 mm BASILIC Vein Forearm: Proximal diameter: 1.7 mm CEPHALIC Vein Upper Arm: Proximal diameter: 3.3 mm Mid diameter: 3.3 mm Distal diameter: 4.0 mm Antecubital fossa: 4.0 mm CEPHALIC Vein Forearm: Proximal diameter: 2.9 mm Mid diameter: 2.5 mm Distal diameter: 2.3 mm LEFT UPPER EXTREMITY: Brachial artery: 4.4 mm. PSV 47.4 cm/s. Radial artery: 2.5 mm. PSV 47.4 cm/s Ulnar artery: 2.2 mm. PSV 41.6 cm/s Triphasic arterial waveforms are noted. BASILIC Vein Upper Arm: Proximal diameter: 3.7 mm Mid diameter: 3.2 mm Distal diameter: 2.5 mm Antecubital fossa: 1.7 mm CEPHALIC Vein Upper Arm: Proximal diameter: 3.0 mm Mid diameter: 3.4 mm Distal diameter: 3.3 mm Antecubital fossa: 3.1 mm CEPHALIC Vein Forearm: Proximal diameter: 1.6 mm Mid diameter: 1.2 mm Distal diameter: 1.2 mm IMPRESSION: Venous mapping measurements as detailed above.. This document is electronically signed by Chas Christianson MD., January 26 2019 09:49:03 PM ET
[2019-01-27] MEDS: HEPARIN SUB-Q SCH ×3 (05:49→22:05)
[2019-01-27] MEDS: LASIX PO SCH (05:50)
[2019-01-27] MEDS: SYNTHROID PO SCH (05:50)
[2019-01-27] MEDS: APRESOLINE PO SCH ×3 (05:51→22:07)
[2019-01-27] MEDS: HumaLOG SUB-Q SCH ×4 (07:20→22:08)
[2019-01-27] MEDS: TUMS PO SCH ×3 (07:45→22:04)
[2019-01-27] MEDS: ZOFRAN IV PRN (07:48)
[2019-01-27] MEDS ORDERED: ROSUVASTATIN CALCIUM 5 MG PO SCH (10:00)
--- NOTE | 2019-01-27 10:31 | Progress Note ---
Assessment and Plan Impression: * ESRD * Uremia * Hypocalcemia * Secondary hyperparathyroidism * Anemia in ESRD * Hypertension * Type II DM PLan: * Daily HD x 3 - 2cd treatment today * UF as tolerated - patient continues to make urine * Epogen TIW prn * Calcitriol 0.5mcg daily * CM consulted for outpatient dialysis clinic placement * Stable for d/c to home once outpatient HD arranged Subjective Date of service: 01/27/19 Principal diagnosis: esrd Interval history: resting in bed today Objective - Exam Narrative Exam: General appearance: Present: no acute distress - EENT Eyes: Present: PERRL ENT: hearing intact, clear oral mucosa - Neck Neck: Present: supple, normal ROM - Respiratory Respiratory effort: normal Respiratory: bilateral: CTA - Cardiovascular Heart Sounds: Present: S1 & S2. Absent: rub, click - Extremities Extremities: pulses symmetrical, No edema Peripheral Pulses: within normal limits - Abdominal General gastrointestinal: Present: soft, non-tender, non-distended, normal bowel sounds Female genitourinary: Present: normal - Integumentary Integumentary: Present: clear, warm, dry - Musculoskeletal Musculoskeletal: gait normal, strength equal bilaterally - Psychiatric Psychiatric: appropriate mood/affect, intact judgment & insight - Neurologic Neurologic: CNII-XII intact, moves all extremities - Vital Signs Vital signs: Vital Signs - 12hr 01/27/19 01/27/19 01/27/19 02:08 05:51 08:00 Temperature 98.6 F 98.2 F Pulse Rate 68 76 71 Respiratory 20 16 Rate Blood Pressure 106/43 106/43 128/64 O2 Sat by Pulse 91 Oximetry 01/27/19 01/27/19 01/27/19 08:15 08:30 08:45 Temperature Pulse Rate 71 68 70 Respiratory Rate Blood Pressure 128/64 146/72 140/70 O2 Sat by Pulse Oximetry 01/27/19 01/27/19 01/27/19 09:00 09:15 09:30 Temperature Pulse Rate 71 64 69 Respiratory Rate Blood Pressure 137/72 126/54 129/65 O2 Sat by Pulse Oximetry 01/27/19 01/27/19 01/27/19 09:45 10:00 10:15 Temperature Pulse Rate 69 70 68 Respiratory Rate Blood Pressure 121/68 147/71 113/68 O2 Sat by Pulse Oximetry - Lab 01/25/19 09:28 01/25/19 09:31 Most recent lab results Calcium 5.6 mg/dL (8.4-10.2) L* 01/25/19 09:31 Medications & Allergies - Medications Allergies/Adverse Reactions: Allergies No Known Allergies Allergy (Unverified 10/05/16 15:27) Home Medications: Home Medications Medication Instructions Recorded Confirmed Last Taken Type Carvedilol [Coreg] 25 mg PO BID 01/25/19 01/25/19 Unknown History Furosemide [Lasix TAB] 40 mg PO QDAY 01/25/19 01/25/19 Unknown History Hydralazine HCl 50 mg PO TID 01/25/19 01/25/19 Unknown History Insulin Glargine,Hum.rec.anlog 14 units SQ DAILY 01/25/19 01/25/19 Unknown History [Lantus] Levothyroxine [Synthroid] 75 mcg PO QAM 01/25/19 01/25/19 Unknown History Rosuvastatin Calcium 5 mg PO DAILY 01/25/19 01/25/19 Unknown History glipiZIDE [Glipizide] 5 mg PO DAILY 01/25/19 01/25/19 Unknown History Active Medications: Generic Name Dose Route Start Last Admin Trade Name Freq PRN Reason Stop Dose Admin Acetaminophen 650 mg 01/25/19 11:47 01/26/19 19:59 Tylenol PO 650 mg Q4H PRN Administration Pain MILD(1-3)/Fever >100.5/DUNCAN Atorvastatin Calcium 10 mg 01/26/19 22:00 01/26/19 21:22 Lipitor PO 10 mg QHS FEDE Administration Calcitriol 0.5 mcg 01/26/19 19:00 01/26/19 21:22 Rocaltrol PO 0.5 mcg QDAY FEDE Administration Calcium Carbonate/Glycine 1,000 mg 01/25/19 20:00 01/27/19 07:45 Tums PO 1,000 mg TID FEDE Administration Carvedilol 25 mg 01/26/19 22:00 01/26/19 21:23 Coreg PO 25 mg BID FEDE Administration Dextrose 50 ml 01/25/19 12:09 01/26/19 06:37 D50w (25gm) Syringe IV 50 ml PRN PRN Administration Hypoglycemia Epoetin Tyree 10,000 unit 01/26/19 18:44 Procrit IV SANTOS PRN hemodialysis Furosemide 40 mg 01/27/19 06:00 01/27/19 05:50 Lasix PO 40 mg DAILY@0600 FEDE Administration Heparin Sodium (Porcine) 5,000 unit 01/26/19 14:00 01/27/19 05:49 Heparin SUB-Q 5,000 unit Q8HR FEDE Administration Heparin Sodium (Porcine) 5,000 unit 01/26/19 18:44 Heparin IV SANTOS PRN hemodialysis Hydralazine HCl 10 mg 01/25/19 12:08 01/26/19 11:06 Apresoline IV 10 mg Q4HR PRN Administration HTN SYS>155 Hydralazine HCl 50 mg 01/26/19 14:00 01/27/19 05:51 Apresoline PO Not Given Q8HR FEDE Hydralazine HCl 10 mg 01/26/19 11:26 Apresoline IV Q4HR PRN BP >160/100 Sodium Chloride 100 mls @ 999 mls/hr 01/25/19 11:41 Nacl 0.9% IV SANTOS PRN Hypotension Sodium Chloride 500 mls @ 50 mls/hr 01/26/19 08:00 01/26/19 08:35 Nacl 0.9% 500 Ml IV 0 mls DIRECT FEDE Administration Sodium Chloride 100 mls @ 999 mls/hr 01/26/19 18:44 Nacl 0.9% IV SANTOS PRN Hypotension Insulin Glargine 14 units 01/26/19 22:00 01/26/19 21:23 Lantus SUB-Q 14 units QHS FEDE Administration Insulin Human Lispro 0 unit 01/26/19 11:30 01/27/19 07:20 Humalog SUB-Q Not Given ACHS [facility] Protocol Levothyroxine Sodium 75 mcg 01/27/19 06:00 01/27/19 05:50 Synthroid PO 75 mcg DAILY@0600 FEDE Administration Lisinopril 40 mg 01/26/19 10:00 01/26/19 16:56 Zestril PO 40 mg QDAY FEDE Administration Nifedipine 60 mg 01/26/19 12:00 01/26/19 21:22 Procardia Xl PO 60 mg Q12HR FEDE Administration Ondansetron HCl 4 mg 01/25/19 11:47 01/27/19 07:48 Zofran IV 4 mg Q8H PRN Administration Nausea And Vomiting Sodium Chloride 10 ml 01/25/19 22:00 01/26/19 21:25 Sodium Chloride Flush Syringe 10 Ml IV 10 ml BID FEDE Administration Sodium Chloride 10 ml 01/25/19 11:47 Sodium Chloride Flush Syringe 10 Ml IV PRN PRN LINE FLUSH
[2019-01-27] MEDS: ZESTRIL PO SCH (11:02)
[2019-01-27] MEDS: ROCALTROL PO SCH (11:02)
[2019-01-27] MEDS: PROCARDIA XL PO SCH ×2 (11:03→22:04)
[2019-01-27] MEDS: SODIUM CHLORIDE FLUSH SYRINGE 10 ML IV SCH ×2 (11:03→22:06)
[2019-01-27] MEDS: COREG PO SCH ×2 (11:03→22:04)
--- NOTE | 2019-01-27 13:24 | Progress Note ---
Assessment and Plan Assessment and plan: 73F w pmh of ESRD who was previously refusing dialysis, presents with worsening Uremia. 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 cont SSI, restarted home lantus, a1c 7 dvt ppx- heparin awaiting HD placement History Interval history: Review of systems Constitutional: No fevers, no malaise, no joint pains CVS: No chest pain, no orthopnea, no dyspnea on exertion, no pedal edema GI: No abdominal pain, no diarrhea, no vomiting, no constipation Respiratory: No shortness of breath, no wheezing, no coughing Hospitalist Physical - Physical exam Narrative exam: General.: Appears well, no distress, nontoxic HEENT: Moist mucous membranes, extraocular muscles intact, no lymphadenopathy Neck: supple Cardiac: S1-S2 heard Lungs: clear to auscultation bilaterally Abdomen: soft , nontender, nondistended, bowel sounds positive Extremities: no edema clubbing or cyanosis Skin: no rash or lesions Neurologic: no gross focal deficits Psych: calm, and cooperative - Constitutional Vitals: Temp Pulse Resp BP Pulse Ox 98.3 F 72 16 154/74 91 01/27/19 13:02 01/27/19 13:02 01/27/19 13:02 01/27/19 13:02 01/27/19 02:08 General appearance: Present: no acute distress Results - Labs CBC & Chem 7: 01/25/19 09:28 01/25/19 09:31 Labs: Laboratory Last Values WBC 4.9 K/mm3 (4.5-11.0) 01/25/19 09:28 RBC 3.09 M/mm3 (3.65-5.03) L 01/25/19 09:28 Hgb 9.0 gm/dl (10.1-14.3) L 01/25/19 09:28 Hct 27.9 % (30.3-42.9) L 01/25/19 09:28 MCV 90 fl (79-97) 01/25/19 09:28 MCH 29 pg (28-32) 01/25/19 09:28 MCHC 32 % (30-34) 01/25/19 09:28 RDW 16.0 % (13.2-15.2) H 01/25/19 09:28 Plt Count 345 K/mm3 (140-440) 01/25/19 09:28 Lymph % (Auto) 13.8 % (13.4-35.0) 01/25/19 09:28 [place] % (Auto) 7.3 % (0.0-7.3) 01/25/19 09:28 Eos % (Auto) 2.1 % (0.0-4.3) 01/25/19 09:28 Baso % (Auto) 1.5 % (0.0-1.8) 01/25/19 09:28 Lymph # 0.7 K/mm3 (1.2-5.4) L 01/25/19 09:28 [place]house # 0.4 K/mm3 (0.0-0.8) 01/25/19 09:28 Eos # 0.1 K/mm3 (0.0-0.4) 01/25/19 09:28 Baso # 0.1 K/mm3 (0.0-0.1) 01/25/19 09:28 Seg Neutrophils % 75.3 % (40.0-70.0) H 01/25/19 09:28 Seg Neutrophils # 3.7 K/mm3 (1.8-7.7) 01/25/19 09:28 PT 13.3 Sec. (12.2-14.9) 01/25/19 11:55 INR 0.95 (0.87-1.13) 01/25/19 11:55 Sodium 139 mmol/L (137-145) 01/25/19 09:31 Potassium 5.2 mmol/L (3.6-5.0) H 01/25/19 09:31 Chloride 106.7 mmol/L (98-107) 01/25/19 09:31 Carbon Dioxide 15 mmol/L (22-30) L 01/25/19 09:31 Anion Gap 23 mmol/L 01/25/19 09:31 BUN 103 mg/dL (7-17) H 01/25/19 09:31 Creatinine 12.6 mg/dL (0.7-1.2) H 01/25/19 09:31 Estimated GFR 3 ml/min 04/08/19 09:31 BUN/Creatinine Ratio 8 % 01/25/19 09:31 Glucose 161 mg/dL (65-100) H 01/25/19 09:31 POC Glucose 100 (70-105) 01/27/19 11:28 Hemoglobin A1c 7.0 % (4-6) H 01/27/19 07:19 Calcium 5.6 mg/dL (8.4-10.2) L* 01/25/19 09:31 Total Bilirubin 0.20 mg/dL (0.1-1.2) 01/25/19 09:31 AST 37 units/L (5-40) 01/25/19 09:31 ALT 103 units/L (7-56) H 01/25/19 09:31 Alkaline Phosphatase 123 units/L (35-129) 01/25/19 09:31 Total Protein 5.6 g/dL (6.3-8.2) L 01/25/19 09:31 Albumin 2.8 g/dL (3.9-5) L 01/25/19 09:31 Albumin/Globulin Ratio 1.0 % 01/25/19 09:31 PTH Intact 268.2 pg/mL (15-65) H 01/25/19 16:11 Hepatitis A IgM Ab Non-reactive (NonReactive) 01/25/19 16:11 Hep Bs Antigen Non-reactive (Negative) 01/25/19 16:11 Hep B Core IgM Ab Non-reactive (NonReactive) 01/25/19 16:11 Hepatitis C Antibody Non-reactive (NonReactive) 01/25/19 16:11 Active Medications - Current Medications Current Medications: Generic Name Dose Route Start Last Admin Trade Name Freq PRN Reason Stop Dose Admin Acetaminophen 650 mg 01/25/19 11:47 01/26/19 19:59 Tylenol PO 650 mg Q4H PRN Administration Pain MILD(1-3)/Fever >100.5/DUNCAN Atorvastatin Calcium 10 mg 01/26/19 22:00 01/26/19 21:22 Lipitor PO 10 mg QHS FEDE Administration Calcitriol 0.5 mcg 01/26/19 19:00 01/27/19 11:02 Rocaltrol PO 0.5 mcg QDAY FEDE Administration Calcium Carbonate/Glycine 1,000 mg 01/25/19 20:00 01/27/19 07:45 Tums PO 1,000 mg TID FEDE Administration Carvedilol 25 mg 01/26/19 22:00 01/27/19 11:03 Coreg PO 25 mg BID FEDE Administration Dextrose 50 ml 01/25/19 12:09 01/26/19 06:37 D50w (25gm) Syringe IV 50 ml PRN PRN Administration Hypoglycemia Epoetin Tyree 10,000 unit 01/26/19 18:44 Procrit IV SANTOS PRN hemodialysis Furosemide 40 mg 01/27/19 06:00 01/27/19 05:50 Lasix PO 40 mg DAILY@0600 FEDE Administration Heparin Sodium (Porcine) 5,000 unit 01/26/19 14:00 01/27/19 05:49 Heparin SUB-Q 5,000 unit Q8HR FEDE Administration Heparin Sodium (Porcine) 5,000 unit 01/26/19 18:44 Heparin IV SANTOS PRN hemodialysis Hydralazine HCl 50 mg 01/26/19 14:00 01/27/19 05:51 Apresoline PO Not Given Q8HR FEDE Hydralazine HCl 10 mg 01/26/19 11:26 Apresoline IV Q4HR PRN BP >160/100 Sodium Chloride 500 mls @ 50 mls/hr 01/26/19 08:00 01/26/19 08:35 Nacl 0.9% 500 Ml IV 0 mls DIRECT FEDE Administration Sodium Chloride 100 mls @ 999 mls/hr 01/26/19 18:44 Nacl 0.9% IV SANTOS PRN Hypotension Insulin Glargine 14 units 01/26/19 22:00 01/26/19 21:23 Lantus SUB-Q 14 units QHS FEDE Administration Insulin Human Lispro 0 unit 01/26/19 11:30 01/27/19 11:31 Humalog SUB-Q Not Given ACHS [facility] Protocol Levothyroxine Sodium 75 mcg 01/27/19 06:00 01/27/19 05:50 Synthroid PO 75 mcg DAILY@0600 FEDE Administration Lisinopril 40 mg 01/26/19 10:00 01/27/19 11:02 Zestril PO 40 mg QDAY FEDE Administration Nifedipine 60 mg 01/26/19 12:00 01/27/19 11:03 Procardia Xl PO 60 mg Q12HR FEDE Administration Ondansetron HCl 4 mg 01/25/19 11:47 01/27/19 07:48 Zofran IV 4 mg Q8H PRN Administration Nausea And Vomiting Sodium Chloride 10 ml 01/25/19 22:00 01/27/19 11:03 Sodium Chloride Flush Syringe 10 Ml IV 10 ml BID FEDE Administration Sodium Chloride 10 ml 01/25/19 11:47 Sodium Chloride Flush Syringe 10 Ml IV PRN PRN LINE FLUSH Nutrition/Malnutrition Assess - Dietary Evaluation Nutrition/Malnutrition Findings: Nutrition Notes Start: 01/26/19 14:26 Freq: Status: Active Protocol: Document 01/26/19 14:26 EB (Rec: 01/26/19 14:28 EB [id number]) Co-Sign 01/26/19 14:26 LP Nutrition Notes Need for Assessment generated from: MD Order Initial or Follow up Brief Note Height 5 ft 2 in Weight 60.781 kg Ashley Body Weight (kg) 50.00 BMI 24.5 Subjective/Other Information Consulted for Malnutrition. Pt in dialysis at this time. Recorded PO intake 100% x 1 meal. Nutrition Intervention Follow-Up By: 01/27/19 Additional Comments F/u: Malnutrition assessment
[2019-01-27] MEDS: LANTUS SUB-Q SCH (22:06)
[2019-01-28] MEDS: SYNTHROID PO SCH (05:33)
[2019-01-28] MEDS: HEPARIN SUB-Q SCH ×2 (05:33→13:55)
[2019-01-28] MEDS: LASIX PO SCH (05:33)
[2019-01-28] MEDS: APRESOLINE PO SCH ×3 (05:34→13:44)
[2019-01-28] MEDS: HumaLOG SUB-Q SCH ×3 (07:11→16:40)
[2019-01-28] MEDS: TUMS PO SCH ×2 (07:30→13:55)
--- NOTE | 2019-01-28 11:59 | Progress Note ---
<JUAN MORALES - Last Filed: 01/28/19 14:34> Assessment and Plan Assessment and plan: 73 year old female with history of ESRD who previously refused hemodialysis treatment d/t wanting undergo a renal transplant presented to the ED with complaints of nausea, fatigue, generalized weakness and overall not feeling well for the past month with symptoms worsening over the past week. She was found to have ESRD, acidosis, hyperkalemia with no evidence of ECG changes, and anemia of chronic disease subsequently admitted on 01/25. She underwent PermCath placement on 01/27. At the time of my examination patient is currently receiving hemodialysis. She has no complaints at this time she is pending outpatient hemo-dialysis clinic placement with the [facility] per case management note on 01/27. ESRD Being managed by nephrology Currently receiving hemodialysis Has received hemodialysis on 01/26 and 01/27 Pending outpatient hemodialysis clinic placement Patient plans to pursue renal transplant [facility] Chronic anemia Epogen prn Hypertension Continue to monitor BP Continue antihypertensive medication Hypocalcemia On calcitriol.5mcg BID Diabetes mellitus Continue POC BG monitoring, SSI and scheduled coverage Hospitalist Physical - Constitutional Vitals: Temp Pulse Resp BP Pulse Ox 93.8 F L 63 16 140/68 91 01/28/19 08:30 01/28/19 11:50 01/28/19 08:30 01/28/19 11:50 01/28/19 07:16 General appearance: Present: no acute distress - EENT Eyes: Present: PERRL, EOM intact - Neck Neck: Present: supple, normal ROM - Respiratory Respiratory effort: normal Respiratory: bilateral: diminished (bases) - Cardiovascular Rhythm: regular Heart Sounds: Present: S1 & S2 - Extremities Extremities: pulses intact, pulses symmetrical Extremity abnormal: edema - Peripheral Assessment Generalized Edema Type: Non-pitting Edema Degree: Trace Capillary Refill: < 3 seconds Skin Temperature: Warm Peripheral Pulses: within normal limits - Abdominal General gastrointestinal: soft, non-tender - Integumentary Integumentary: Present: warm, dry - Psychiatric Psychiatric: appropriate mood/affect, cooperative Results - Labs CBC & Chem 7: 01/25/19 09:28 01/25/19 09:31 Labs: Laboratory Last Values WBC 4.9 K/mm3 (4.5-11.0) 01/25/19 09:28 RBC 3.09 M/mm3 (3.65-5.03) L 01/25/19 09:28 Hgb 9.0 gm/dl (10.1-14.3) L 01/25/19 09:28 Hct 27.9 % (30.3-42.9) L 01/25/19 09:28 MCV 90 fl (79-97) 01/25/19 09: MCH 29 pg (28-32) 01/25/19 09: MCHC 32 % (30-34) 01/25/19 09:28 RDW 16.0 % (13.2-15.2) H 01/25/19 09:28 Plt Count 345 K/mm3 (140-440) 01/25/19 09:28 Lymph % (Auto) 13.8 % (13.4-35.0) 01/25/19 09:28 Russell % (Auto) 7.3 % (0.0-7.3) 01/25/19 09:28 Eos % (Auto) 2.1 % (0.0-4.3) 01/25/19 09:28 Baso % (Auto) 1.5 % (0.0-1.8) 01/25/19 09:28 Lymph # 0.7 K/mm3 (1.2-5.4) L 01/25/19 09:28 Russell # 0.4 K/mm3 (0.0-0.8) 01/25/19 09:28 Eos # 0.1 K/mm3 (0.0-0.4) 01/25/19 09:28 Baso # 0.1 K/mm3 (0.0-0.1) 01/25/19 09:28 Seg Neutrophils % 75.3 % (40.0-70.0) H 01/25/19 09:28 Seg Neutrophils # 3.7 K/mm3 (1.8-7.7) 01/25/19 09:28 PT 13.3 Sec. (12.2-14.9) 01/25/19 11:55 INR 0.95 (0.87-1.13) 01/25/19 11:55 Sodium 139 mmol/L (137-145) 01/25/19 09:31 Potassium 5.2 mmol/L (3.6-5.0) H 01/25/19 09:31 Chloride 106.7 mmol/L (98-107) 01/25/19 09:31 Carbon Dioxide 15 mmol/L (22-30) L 01/25/19 09:31 Anion Gap 23 mmol/L 01/25/19 09:31 BUN 103 mg/dL (7-17) H 01/25/19 09:31 Creatinine 12.6 mg/dL (0.7-1.2) H 01/25/19 09:31 Estimated GFR 3 ml/min 01/25/19 09:31 BUN/Creatinine Ratio 8 % 01/25/19 09:31 Glucose 161 mg/dL (65-100) H 01/25/19 09:31 POC Glucose 85 (70-105) 01/28/19 07:08 Hemoglobin A1c 7.0 % (4-6) H 01/27/19 07:19 Calcium 5.6 mg/dL (8.4-10.2) L* 01/25/19 09:31 Total Bilirubin 0.20 mg/dL (0.1-1.2) 01/25/19 09:31 AST 37 units/L (5-40) 01/25/19 09:31 ALT 103 units/L (7-56) H 01/25/19 09:31 Alkaline Phosphatase 123 units/L (35-129) 01/25/19 09:31 Total Protein 5.6 g/dL (6.3-8.2) L 01/25/19 09:31 Albumin 2.8 g/dL (3.9-5) L 01/25/19 09:31 Albumin/Globulin Ratio 1.0 % 01/25/19 09:31 PTH Intact 268.2 pg/mL (15-65) H 01/25/19 16:11 Hepatitis A IgM Ab Non-reactive (NonReactive) 01/25/19 16:11 Hep Bs Antigen Non-reactive (Negative) 01/25/19 16:11 Hep B Core IgM Ab Non-reactive (NonReactive) 01/25/19 16:11 Hepatitis C Antibody Non-reactive (NonReactive) 01/25/19 16:11 Active Medications - Current Medications Current Medications: Generic Name Dose Route Start Last Admin Trade Name Freq PRN Reason Stop Dose Admin Acetaminophen 650 mg 01/25/19 11:47 01/26/19 19:59 Tylenol PO 650 mg Q4H PRN Administration Pain MILD(1-3)/Fever >100.5/DUNCAN Atorvastatin Calcium 10 mg 01/26/19 22:00 01/27/19 22:03 Lipitor PO 10 mg QHS FEDE Administration Calcitriol 0.5 mcg 01/26/19 19:00 01/27/19 11:02 Rocaltrol PO 0.5 mcg QDAY FEDE Administration Calcium Carbonate/Glycine 1,000 mg 01/25/19 20:00 01/28/19 07:30 Tums PO 1,000 mg TID FEDE Administration Carvedilol 25 mg 01/26/19 22:00 01/27/19 22:04 Coreg PO 25 mg BID FEDE Administration Dextrose 50 ml 01/25/19 12:09 01/26/19 06:37 D50w (25gm) Syringe IV 50 ml PRN PRN Administration Hypoglycemia Epoetin Tyree 10,000 unit 01/26/19 18:44 01/28/19 10:43 Procrit IV 10,000 unit SANTOS PRN Administration hemodialysis Furosemide 40 mg 01/27/19 06:00 01/28/19 05:33 Lasix PO 40 mg DAILY@0600 FEDE Administration Heparin Sodium (Porcine) 5,000 unit 01/26/19 14:00 01/28/19 05:33 Heparin SUB-Q 5,000 unit Q8HR FEDE Administration Heparin Sodium (Porcine) 5,000 unit 01/26/19 18:44 Heparin IV SANTOS PRN hemodialysis Hydralazine HCl 50 mg 01/26/19 14:00 01/28/19 05:34 Apresoline PO Not Given Q8HR [facility] Hydralazine HCl 10 mg 01/26/19 11:26 Apresoline IV Q4HR PRN BP >160/100 Sodium Chloride 500 mls @ 50 mls/hr 01/26/19 08:00 01/26/19 08:35 Nacl 0.9% 500 Ml IV 0 mls DIRECT FEDE Administration Sodium Chloride 100 mls @ 999 mls/hr 01/26/19 18:44 Nacl 0.9% IV SANTOS PRN Hypotension Insulin Glargine 14 units 01/26/19 22:00 01/27/19 22:06 Lantus SUB-Q 14 units QHS FEDE Administration Insulin Human Lispro 0 unit 01/26/19 11:30 01/28/19 07:11 Humalog SUB-Q Not Given ACHS [facility] Protocol Levothyroxine Sodium 75 mcg 01/27/19 06:00 01/28/19 05:33 Synthroid PO 75 mcg DAILY@0600 FEDE Administration Lisinopril 40 mg 01/26/19 10:00 01/27/19 11:02 Zestril PO 40 mg QDAY FEDE Administration Nifedipine 60 mg 01/26/19 12:00 01/27/19 22:04 Procardia Xl PO 60 mg Q12HR FEDE Administration Ondansetron HCl 4 mg 01/25/19 11:47 01/27/19 07:48 Zofran IV 4 mg Q8H PRN Administration Nausea And Vomiting Sodium Chloride 10 ml 01/25/19 22:00 01/27/19 22:06 Sodium Chloride Flush Syringe 10 Ml IV 10 ml BID FEDE Administration Sodium Chloride 10 ml 01/25/19 11:47 Sodium Chloride Flush Syringe 10 Ml IV PRN PRN LINE FLUSH Nutrition/Malnutrition Assess - Dietary Evaluation Nutrition/Malnutrition Findings: Nutrition Notes Start: 01/26/19 14:26 Freq: Status: Active Protocol: Document 01/27/19 13:44 EB (Rec: 01/27/19 13:53 EB [id number]) Co-Sign 01/27/19 13:44 LP Nutrition Notes Initial or Follow up Assessment Current Diagnosis CKD (stage V CKD),Diabetes, Hypertension Other Pertinent Diagnosis on HD, Anemia Current Diet Consistent CHO with Renal Modification Labs/Tests no current labs available Pertinent Medications Lasix Height 5 ft 2 in Weight 60.78 kg Ridge Body Weight (kg) 50.00 BMI 24.5 Subjective/Other Information Pt just returned from HD at time of visit. and son also present in room and all three had questions about diet now that pt is receiving HD. I gave education regarding ESRD on HD combined with T2DM. Pt continues eating >75% meals. Percent of energy/protein needs met: 100%/92% hema and pro needs Burn Absent Trauma Absent Current % PO Good (75-100%) #1 Nutrition Diagnosis Food and nutrition-related knowledge deficit Etiology lack of education As Evidenced by Signs and Symptoms no prior knowledge of need for nutrition recommendations Is patient on ventilator? No Is Patient Ambulatory and/or Out of Bed Yes REE-(Fulton-St. Jeor-ambulatory/OOB) [ 5760.869 NUTR.MSJOOB] Kcal/Kg value to use for calculation 25 Approximate Energy Requirements Using 1520 kcal/Kg Additional Notes PRO: 1.2-1.3 g/kg (73-80 g/day ) Fluid: 1500 mL or per MD recommendation Nutrition Intervention Change Diet Order: Continue current diet Goal #1 adhere to diet recommendations Anticipated Discharge Needs: Consistent CHO/Renal diet Revisit per MD consult or patient Sign Off request: <RAISSA BARRETO M - Last Filed: 01/29/19 17:51> Assessment and Plan Assessment and plan: I saw and evaluated the patient. I agree with the findings and the plan of care as documented in the Nurse Practitioner's~note, with the following corrections and additions. -awaiting HD placement History Interval history: no cp, no sob, no vomiting, no fever, no seizure Hospitalist Physical - Constitutional Vitals: Temp Pulse Resp BP Pulse Ox 98.1 F 72 18 110/44 91 01/28/19 13:10 01/28/19 13:10 01/28/19 13:10 01/28/19 13:10 01/28/19 13:10 Results - Labs CBC & Chem 7: 01/25/19 09:28 01/25/19 09:31 Labs: Laboratory Last Values WBC 4.9 K/mm3 (4.5-11.0) 01/25/19 09:28 RBC 3.09 M/mm3 (3.65-5.03) L 01/25/19 09:28 Hgb 9.0 gm/dl (10.1-14.3) L 01/25/19 09:28 Hct 27.9 % (30.3-42.9) L 01/25/19 09:28 MCV 90 fl (79-97) 01/25/19 09:28 MCH 29 pg (28-32) 01/25/19 09:28 MCHC 32 % (30-34) 01/25/19 09:28 RDW 16.0 % (13.2-15.2) H 01/25/19 09:28 Plt Count 345 K/mm3 (140-440) 01/25/19 09:28 Lymph % (Auto) 13.8 % (13.4-35.0) 01/25/19 09:28 Russell % (Auto) 7.3 % (0.0-7.3) 01/25/19 09:28 Eos % (Auto) 2.1 % (0.0-4.3) 01/25/19 09:28 Baso % (Auto) 1.5 % (0.0-1.8) 01/25/19 09:28 Lymph # 0.7 K/mm3 (1.2-5.4) L 01/25/19 09:28 Russell # 0.4 K/mm3 (0.0-0.8) 01/25/19 09:28 Eos # 0.1 K/mm3 (0.0-0.4) 01/25/19 09:28 Baso # 0.1 K/mm3 (0.0-0.1) 01/25/19 09:28 Seg Neutrophils % 75.3 % (40.0-70.0) H 01/25/19 09:28 Seg Neutrophils # 3.7 K/mm3 (1.8-7.7) 01/25/19 09:28 PT 13.3 Sec. (12.2-14.9) 01/25/19 11:55 INR 0.95 (0.87-1.13) 01/25/19 11:55 Sodium 139 mmol/L (137-145) 01/25/19 09:31 Potassium 5.2 mmol/L (3.6-5.0) H 01/25/19 09:31 Chloride 106.7 mmol/L (98-107) 01/25/19 09:31 Carbon Dioxide 15 mmol/L (22-30) L 01/25/19 09:31 Anion Gap 23 mmol/L 01/25/19 09:31 BUN 103 mg/dL (7-17) H 01/25/19 09:31 Creatinine 12.6 mg/dL (0.7-1.2) H 01/25/19 09:31 Estimated GFR 3 ml/min 01/25/19 09:31 BUN/Creatinine Ratio 8 % 01/25/19 09:31 Glucose 161 mg/dL (65-100) H 01/25/19 09:31 POC Glucose 172 (70-105) H 01/28/19 16:30 Hemoglobin A1c 7.0 % (4-6) H 01/27/19 07:19 Calcium 5.6 mg/dL (8.4-10.2) L* 01/25/19 09:31 Total Bilirubin 0.20 mg/dL (0.1-1.2) 01/25/19 09:31 AST 37 units/L (5-40) 01/25/19 09:31 ALT 103 units/L (7-56) H 01/25/19 09:31 Alkaline Phosphatase 123 units/L (35-129) 01/25/19 09:31 Total Protein 5.6 g/dL (6.3-8.2) L 01/25/19 09:31 Albumin 2.8 g/dL (3.9-5) L 01/25/19 09:31 Albumin/Globulin Ratio 1.0 % 01/25/19 09:31 PTH Intact 268.2 pg/mL (15-65) H 01/25/19 16:11 Hepatitis A IgM Ab Non-reactive (NonReactive) 01/25/19 16:11 Hep Bs Antigen Non-reactive (Negative) 01/25/19 16:11 Hep B Core IgM Ab Non-reactive (NonReactive) 01/25/19 16:11 Hepatitis C Antibody Non-reactive (NonReactive) 01/25/19 16:11 Nutrition/Malnutrition Assess - Dietary Evaluation Nutrition/Malnutrition Findings: Nutrition Notes Start: 01/26/19 14:26 Freq: Status: Discharge Protocol: Document 01/27/19 13:44 EB (Rec: 01/27/19 13:53 EB [id number]) Co-Sign 01/27/19 13:44 LP Nutrition Notes Initial or Follow up Assessment Current Diagnosis CKD (stage V CKD),Diabetes, Hypertension Other Pertinent Diagnosis on HD, Anemia Current Diet Consistent CHO with Renal Modification Labs/Tests no current labs available Pertinent Medications Lasix Height 5 ft 2 in Weight 60.78 kg Ridge Body Weight (kg) 50.00 BMI 24.5 Subjective/Other Information Pt just returned from HD at time of visit. and son also present in room and all three had questions about diet now that pt is receiving HD. I gave education regarding ESRD on HD combined with T2DM. Pt continues eating >75% meals. Percent of energy/protein needs met: 100%/92% hema and pro needs Burn Absent Trauma Absent Current % PO Good (75-100%) #1 Nutrition Diagnosis Food and nutrition-related knowledge deficit Etiology lack of education As Evidenced by Signs and Symptoms no prior knowledge of need for nutrition recommendations Is patient on ventilator? No Is Patient Ambulatory and/or Out of Bed Yes REE-(Fulton-St. Jeor-ambulatory/OOB) [ 1398.865 NUTR.MSJOOB] Kcal/Kg value to use for calculation 25 Approximate Energy Requirements Using 1520 kcal/Kg Additional Notes PRO: 1.2-1.3 g/kg (73-80 g/day ) Fluid: 1500 mL or per MD recommendation Nutrition Intervention Change Diet Order: Continue current diet Goal #1 adhere to diet recommendations Anticipated Discharge Needs: Consistent CHO/Renal diet Revisit per MD consult or patient Sign Off request:
--- NOTE | 2019-01-28 12:07 | Progress Note ---
Assessment and Plan Impression: * ESRD * Uremia * Hypocalcemia * Secondary hyperparathyroidism * Anemia in ESRD * Hypertension * Type II DM PLan: * Daily HD x 3 - 3rd treatment today * UF as tolerated - patient continues to make urine * Epogen TIW prn * Calcitriol 0.5mcg daily * CM consulted for outpatient dialysis clinic placement * Stable for d/c to home once outpatient HD arranged Subjective Date of service: 01/28/19 Principal diagnosis: esrd Interval history: resting in bed today Objective - Exam Narrative Exam: General appearance: Present: no acute distress - EENT Eyes: Present: PERRL ENT: hearing intact, clear oral mucosa - Neck Neck: Present: supple, normal ROM - Respiratory Respiratory effort: normal Respiratory: bilateral: CTA - Cardiovascular Heart Sounds: Present: S1 & S2. Absent: rub, click - Extremities Extremities: pulses symmetrical, No edema Peripheral Pulses: within normal limits - Abdominal General gastrointestinal: Present: soft, non-tender, non-distended, normal bowel sounds Female genitourinary: Present: normal - Integumentary Integumentary: Present: clear, warm, dry - Musculoskeletal Musculoskeletal: gait normal, strength equal bilaterally - Psychiatric Psychiatric: appropriate mood/affect, intact judgment & insight - Neurologic Neurologic: CNII-XII intact, moves all extremities - Vital Signs Vital signs: Vital Signs - 12hr 01/28/19 01/28/19 01/28/19 02:41 05:34 07:16 Temperature 98.3 F 98.8 F Pulse Rate 80 63 Respiratory 20 16 Rate Blood Pressure 112/51 112/51 105/50 O2 Sat by Pulse 91 Oximetry 01/28/19 01/28/19 01/28/19 08:30 08:50 09:00 Temperature 93.8 F L Pulse Rate 62 62 61 Respiratory 16 Rate Blood Pressure 120/61 120/61 133/64 O2 Sat by Pulse Oximetry 01/28/19 01/28/19 01/28/19 09:15 09:27 09:30 Temperature Pulse Rate 51 L 61 60 Respiratory Rate Blood Pressure 136/65 123/65 O2 Sat by Pulse Oximetry 01/28/19 01/28/19 01/28/19 09:45 10:00 10:15 Temperature Pulse Rate 63 60 62 Respiratory Rate Blood Pressure 123/66 135/65 136/65 O2 Sat by Pulse Oximetry 01/28/19 01/28/19 01/28/19 10:30 10:45 11:00 Temperature Pulse Rate 64 65 65 Respiratory Rate Blood Pressure 136/68 135/70 154/72 O2 Sat by Pulse Oximetry 01/28/19 01/28/19 01/28/19 11:15 11:30 11:50 Temperature Pulse Rate 64 63 63 Respiratory Rate Blood Pressure 154/68 152/72 140/68 O2 Sat by Pulse Oximetry - Lab 01/25/19 09:28 01/25/19 09:31 Most recent lab results Calcium 5.6 mg/dL (8.4-10.2) L* 01/25/19 09:31 Medications & Allergies - Medications Allergies/Adverse Reactions: Allergies No Known Allergies Allergy (Unverified 10/05/16 15:27) Home Medications: Home Medications Medication Instructions Recorded Confirmed Last Taken Type Carvedilol [Coreg] 25 mg PO BID 01/25/19 01/25/19 Unknown History Furosemide [Lasix TAB] 40 mg PO QDAY 01/25/19 01/25/19 Unknown History Hydralazine HCl 50 mg PO TID 01/25/19 01/25/19 Unknown History Insulin Glargine,Hum.rec.anlog 14 units SQ DAILY 01/25/19 01/25/19 Unknown History [Lantus] Levothyroxine [Synthroid] 75 mcg PO QAM 01/25/19 01/25/19 Unknown History Rosuvastatin Calcium 5 mg PO DAILY 01/25/19 01/25/19 Unknown History glipiZIDE [Glipizide] 5 mg PO DAILY 01/25/19 01/25/19 Unknown History Active Medications: Generic Name Dose Route Start Last Admin Trade Name Freq PRN Reason Stop Dose Admin Acetaminophen 650 mg 01/25/19 11:47 01/26/19 19:59 Tylenol PO 650 mg Q4H PRN Administration Pain MILD(1-3)/Fever >100.5/DUNCAN Atorvastatin Calcium 10 mg 01/26/19 22:00 01/27/19 22:03 Lipitor PO 10 mg QHS FEDE Administration Calcitriol 0.5 mcg 01/26/19 19:00 01/27/19 11:02 Rocaltrol PO 0.5 mcg QDAY FEDE Administration Calcium Carbonate/Glycine 1,000 mg 01/25/19 20:00 01/28/19 07:30 Tums PO 1,000 mg TID FEDE Administration Carvedilol 25 mg 01/26/19 22:00 01/27/19 22:04 Coreg PO 25 mg BID FEDE Administration Dextrose 50 ml 01/25/19 12:09 01/26/19 06:37 D50w (25gm) Syringe IV 50 ml PRN PRN Administration Hypoglycemia Epoetin Tyree 10,000 unit 01/26/19 18:44 01/28/19 10:43 Procrit IV 10,000 unit SANTOS PRN Administration hemodialysis Furosemide 40 mg 01/27/19 06:00 01/28/19 05:33 Lasix PO 40 mg DAILY@0600 FEDE Administration Heparin Sodium (Porcine) 5,000 unit 01/26/19 14:00 01/28/19 05:33 Heparin SUB-Q 5,000 unit Q8HR FEDE Administration Heparin Sodium (Porcine) 5,000 unit 01/26/19 18:44 Heparin IV SANTOS PRN hemodialysis Hydralazine HCl 50 mg 01/26/19 14:00 01/28/19 05:34 Apresoline PO Not Given Q8HR FEDE Hydralazine HCl 10 mg 01/26/19 11:26 Apresoline IV Q4HR PRN BP >160/100 Sodium Chloride 500 mls @ 50 mls/hr 01/26/19 08:00 01/26/19 08:35 Nacl 0.9% 500 Ml IV 0 mls DIRECT FEDE Administration Sodium Chloride 100 mls @ 999 mls/hr 01/26/19 18:44 Nacl 0.9% IV SANTOS PRN Hypotension Insulin Glargine 14 units 01/26/19 22:00 01/27/19 22:06 Lantus SUB-Q 14 units QHS FEDE Administration Insulin Human Lispro 0 unit 01/26/19 11:30 01/28/19 07:11 Humalog SUB-Q Not Given ACHS [facility] Protocol Levothyroxine Sodium 75 mcg 01/27/19 06:00 01/28/19 05:33 Synthroid PO 75 mcg DAILY@0600 FEDE Administration Lisinopril 40 mg 01/26/19 10:00 01/27/19 11:02 Zestril PO 40 mg QDAY FEDE Administration Nifedipine 60 mg 01/26/19 12:00 01/27/19 22:04 Procardia Xl PO 60 mg Q12HR FEDE Administration Ondansetron HCl 4 mg 01/25/19 11:47 01/27/19 07:48 Zofran IV 4 mg Q8H PRN Administration Nausea And Vomiting Sodium Chloride 10 ml 01/25/19 22:00 01/27/19 22:06 Sodium Chloride Flush Syringe 10 Ml IV 10 ml BID FEDE Administration Sodium Chloride 10 ml 01/25/19 11:47 Sodium Chloride Flush Syringe 10 Ml IV PRN PRN LINE FLUSH
[2019-01-28] MEDS: PROCARDIA XL PO SCH (12:30)
[2019-01-28] MEDS: COREG PO SCH (12:31)
[2019-01-28] MEDS: ZESTRIL PO SCH (12:31)
[2019-01-28] MEDS: SODIUM CHLORIDE FLUSH SYRINGE 10 ML IV SCH (12:32)
[2019-01-28] MEDS: ROCALTROL PO SCH (12:32)
[2019-01-28 13:14] VITALS: BP 110/44
--- NOTE | 2019-01-28 16:42 | Discharge Summary ---
<JUAN MORALES - Last Filed: 01/29/19 15:17> Providers - Providers Date of Admission: 01/25/19 11:47 Date of discharge: 01/28/19 Attending physician: RAISSA BARRETO MD 01/25/19 10:49 Consult to Physician [CONS] Urgent Comment: Pushpa TAO notified @ 11:15- LXM Consulting Provider: JOCELYN RICO Physician Instructions: Reason For Exam: esrd needing first time dialysis 01/25/19 10:50 Consult to Physician [CONS] Urgent Comment: RAJWINDER JENSEN SPOKE TO THE NURSE/ANNIA Consulting Provider: CLIFFORD SALDAÑA Physician Instructions: Reason For Exam: esrd needing first time dialysis 01/25/19 15:52 Consult to Case Management [CONS] Routine Services Needed at Discharge: Other Notified:: spoke with el Additional Physician Instructions: dialysis unit placement, davita 01/25/19 18:05 Physical Therapy Evaluation and Treat [CONS] Routine Comment: Reason For Exam: weakness 01/26/19 10:49 Consult to Dietitian/Nutrition [CONS] Routine Physician Instructions: Reason For Exam: Reason for Consult: Malnutrition Primary care physician: SHYAM RODRIGUES Hospitalization Condition: Stable Disposition: DC-01 TO HOME OR SELFCARE Exam - Constitutional Vitals: Temp Pulse Resp BP Pulse Ox 98.1 F 72 18 110/44 91 01/28/19 13:10 01/28/19 13:10 01/28/19 13:10 01/28/19 13:10 01/28/19 13:10 Plan Follow up with: SHYAM RODRIGUES MD [Primary Care Provider] - 7 Days Prescriptions: NIFEdipine XL [Procardia Xl] 60 mg PO Q12HR #60 tablet Calcitriol [Rocaltrol] 0.5 mcg PO QDAY #30 capsule Calcium Carbonate [Tums] 1,000 mg PO TID 30 Days tablet Lisinopril [Zestril TAB] 40 mg PO QDAY #30 tablet <RAISSA BARRETO - Last Filed: 01/29/19 17:41> Providers - Providers Date of Admission: 01/25/19 11:47 Attending physician: RAISSA BARRETO MD 01/25/19 10:49 Consult to Physician [CONS] Urgent Comment: Pushpa TAO notified @ 11:15- LXM Consulting Provider: JOCELYN RICO Physician Instructions: Reason For Exam: esrd needing first time dialysis 01/25/19 10:50 Consult to Physician [CONS] Urgent Comment: RAJWINDER MIKEY SPOKE TO THE NURSE/ANNIA Consulting Provider: CLIFFORD SALDAÑA Physician Instructions: Reason For Exam: esrd needing first time dialysis 01/25/19 15:52 Consult to Case Management [CONS] Routine Services Needed at Discharge: Other Notified:: spoke with el Additional Physician Instructions: dialysis unit placement, davita 01/25/19 18:05 Physical Therapy Evaluation and Treat [CONS] Routine Comment: Reason For Exam: weakness 01/26/19 10:49 Consult to Dietitian/Nutrition [CONS] Routine Physician Instructions: Reason For Exam: Reason for Consult: Malnutrition Primary care physician: SHYAM RODRIGUES Hospitalization Hospital course: 73F w pmh of ESRD who was previously refusing dialysis, presents with worsening Uremia. she is planning for kidney transplant pmh; dm, esrd, htn, hypothyroidism Dx esrd uremia htn urgency AOCD hyperkalemia Severe malnutrition DM Permacath was placed, she was started on dialysis, high blood pressure medications were optimized. She was restarted on her home dose of lantus. Dialysis chair time and placement was obtained prior to discharge. Time spent for discharge: 33 mins Core Measure Documentation - Palliative Care Palliative Care/ Comfort Measures: Not Applicable - Core Measures Any of the following diagnoses?: none Exam - Constitutional Vitals: Temp Pulse Resp BP Pulse Ox 98.1 F 72 18 110/44 91 01/28/19 13:10 01/28/19 13:10 01/28/19 13:10 01/28/19 13:10 01/28/19 13:10 General appearance: Present: no acute distress, well-nourished - EENT Eyes: Present: PERRL ENT: hearing intact, clear oral mucosa - Neck Neck: Present: supple, normal ROM - Respiratory Respiratory effort: normal Respiratory: bilateral: CTA - Cardiovascular Heart Sounds: Present: S1 & S2. Absent: rub, click - Extremities Extremities: pulses symmetrical, No edema Peripheral Pulses: within normal limits - Abdominal General gastrointestinal: Present: soft, non-tender, non-distended, normal bowel sounds Female genitourinary: Present: normal - Integumentary Integumentary: Present: clear, warm, dry - Musculoskeletal Musculoskeletal: gait normal, strength equal bilaterally - Psychiatric Psychiatric: appropriate mood/affect, intact judgment & insight - Neurologic Neurologic: CNII-XII intact, moves all extremities
--- NOTE | 2019-01-29 15:22 | Discharge Summary ---
Providers - Providers Date of Admission: 01/25/19 11:47 Date of discharge: 01/28/19 Attending physician: RAISSA BARRETO MD 01/25/19 10:49 Consult to Physician [CONS] Urgent Comment: Pushpa TAO notified @ 11:15- LXM Consulting Provider: JOCELYN RICO Physician Instructions: Reason For Exam: esrd needing first time dialysis 01/25/19 10:50 Consult to Physician [CONS] Urgent Comment: RAJWINDER MIKEY SPOKE TO THE NURSE/ANNIA Consulting Provider: CLIFFORD SALDAÑA Physician Instructions: Reason For Exam: esrd needing first time dialysis 01/25/19 15:52 Consult to Case Management [CONS] Routine Services Needed at Discharge: Other Notified:: spoke with el French Physician Instructions: dialysis unit placement, davita 01/25/19 18:05 Physical Therapy Evaluation and Treat [CONS] Routine Comment: Reason For Exam: weakness 01/26/19 10:49 Consult to Dietitian/Nutrition [CONS] Routine Physician Instructions: Reason For Exam: Reason for Consult: Malnutrition Primary care physician: SHYAM RODRIGUES Hospitalization Reason for admission: ESRD Condition: Stable Hospital course: 73 year old female with history of ESRD who previously refused hemodialysis treatment d/t wanting undergo a renal transplant presented to the ED with complaints of nausea, fatigue, generalized weakness and overall not feeling well for the past month with symptoms worsening over the past week. She was found to have ESRD, acidosis, hyperkalemia with no evidence of ECG changes, and anemia of chronic disease subsequently admitted on 01/25. She underwent PermCath placement on 01/27. At the time of my examination patient is currently receiving hemodialysis. Shas been established with [facility] for outpatient HD. This was discussed with patient and her . They are both in agreement and verbalized understanding . ESRD Being managed by nephrology Currently receiving hemodialysis Has received hemodialysis on 01/26 and 01/27 Pending outpatient hemodialysis clinic placement Patient plans to pursue renal transplant [facility] Chronic anemia Epogen prn Hypertension Continue to monitor BP Continue antihypertensive medication Hypocalcemia On calcitriol.5mcg BID Diabetes mellitus Continue POC BG monitoring, SSI and scheduled coverage Disposition: TO HOME OR SELFCARE Core Measure Documentation - Palliative Care Palliative Care/ Comfort Measures: Not Applicable - Core Measures Any of the following diagnoses?: none - VTE Discharge Requirements Deep Vein Thrombosis/Pulmonary Embolism Present on Admission: No Has pt received <5 days of overlap therapy or INR<2.0: No Anticoagulant overlap therapy prescribed at discharge: No Contraindication No Overlap Therapy order at DC: Not Indicated Exam - Constitutional Vitals: Temp Pulse Resp BP Pulse Ox 98.1 F 72 18 110/44 91 01/28/19 13:10 01/28/19 13:10 01/28/19 13:10 01/28/19 13:10 01/28/19 13:10 General appearance: Present: no acute distress - EENT Eyes: Present: PERRL - Neck Neck: Present: supple - Respiratory Respiratory: bilateral: CTA - Cardiovascular Rhythm: regular Heart Sounds: Present: S1 & S2 - Extremities Extremities: pulses intact Extremity abnormal: edema - Peripheral Assessment Generalized Edema Type: Non-pitting Capillary Refill: < 3 seconds Skin Temperature: Warm Peripheral Pulses: within normal limits - Abdominal General gastrointestinal: Present: soft, non-tender Female genitourinary: Present: deferred - Rectal Rectal Exam: deferred - Integumentary Integumentary: Present: warm, dry - Musculoskeletal Musculoskeletal: strength equal bilaterally - Psychiatric Psychiatric: appropriate mood/affect - Neurologic Neurologic: CNII-XII intact Plan Diet: renal Follow up with: SHYAM RODRIGUES MD [Primary Care Provider] - 7 Days Prescriptions: NIFEdipine XL [Procardia Xl] 60 mg PO Q12HR #60 tablet Calcitriol [Rocaltrol] 0.5 mcg PO QDAY #30 capsule Calcium Carbonate [Tums] 1,000 mg PO TID 30 Days tablet Lisinopril [Zestril TAB] 40 mg PO QDAY #30 tablet
== END 2019-01-28 20:15 | disposition home or self-care (01) | DRG 682 ==
LOC: ED 09:12 → 2B-ACE 11:47
PROVIDERS: ADMIT Internal Medicine; ATTEND Internal Medicine
PROC: 5A1D70Z Performance of Urinary Filtration, Intermittent, Less than 6 Hours Per Day (ICD-10-PCS; principal; 2019-01-26)
PROC: 02HV33Z Insertion of Infusion Device into Superior Vena Cava, Percutaneous Approach (ICD-10-PCS; 2019-01-26)
PROC: B5181ZA Fluoroscopy of Superior Vena Cava using Low Osmolar Contrast, Guidance (ICD-10-PCS; 2019-01-26)
PROC: B548ZZA Ultrasonography of Superior Vena Cava, Guidance (ICD-10-PCS; 2019-01-26)
PROC: 5A1D70Z Performance of Urinary Filtration, Intermittent, Less than 6 Hours Per Day (ICD-10-PCS; 2019-01-27)
PROC: 5A1D70Z Performance of Urinary Filtration, Intermittent, Less than 6 Hours Per Day (ICD-10-PCS; 2019-01-28)
DX: I12.0 Hypertensive chronic kidney disease with stage 5 chronic kidney disease or end stage renal disease (principal); N18.6 End stage renal disease; E43 Unspecified severe protein-calorie malnutrition; E87.2 Acidosis; N25.81 Secondary hyperparathyroidism of renal origin; E87.5 Hyperkalemia; I16.0 Hypertensive urgency; Z79.4 Long term (current) use of insulin; Z79.899 Other long term (current) drug therapy; E11.22 Type 2 diabetes mellitus with diabetic chronic kidney disease; Z99.2 Dependence on renal dialysis; Z83.3 Family history of diabetes mellitus; Z82.49 Family history of ischemic heart disease and other diseases of the circulatory system; D63.1 Anemia in chronic kidney disease; Z68.24 Body mass index [BMI] 24.0-24.9, adult; E03.9 Hypothyroidism, unspecified; E83.51 Hypocalcemia
CPT/HCPCS: 36415; 36558; 71046; 76937; 77001; 80053; 80074; 82962; 83036; 83970; 85025; 85610; 93970; 99285; G0378; A9270-GY; C1750; C1769; J0360; J0610; J0690; J0885; J1644; J1815; J2250; J2405; J3010; J7030; J7040

== ENCOUNTER 2019-07-19 22:43 | Inpatient (IN) | payer MEDICARE ==
[2019-07-19 23:28] LABS: Hemoglobin 9.6 gm/dl (10.1-14.3); Mean Corpuscular HGB Conc 33 % (30-34); Mean Corpuscular Volume 99 fl (79-97); Platelet Count 243 K/mm3 (140-440); Red Blood Count 2.94 M/mm3 (3.65-5.03)
[2019-07-19 23:47] LABS: Calcium 8.1 mg/dL (8.4-10.2)
[2019-07-20] MEDS ORDERED: CALCIUM GLUCONATE 1,000 MG in SODIUM CHLORIDE 0.9% 100 ML IV ONE (00:09)
[2019-07-20] MEDS ORDERED: SODIUM BICARB 8.4% 50 MEQ/50 ML SYRINGE IV ONE (00:09)
--- NOTE | 2019-07-20 00:30 | Emergency Department Report ---
HPI - General Chief Complaint: Dyspnea/Respdistress Time Seen by Provider: 07/20/19 00:08 - HPI HPI: Room 25 The pt is a 74 y/o F p/w a cc of SOB. The pt has a h/o ESRD and states she was unable to attend HD today. The pt states this evening she developed SOB. The SOB has been intermittent ED Past Medical Hx - Past Medical History Previous Medical History?: Yes Hx Hypertension: Yes Hx Diabetes: Yes Hx Renal Disease: Yes (Diaylsis MW) - Surgical History Past Surgical History?: Yes Additional Surgical History: x2. Vas cath. graft to left arm. left eye. goiter removed - Family History Family history: no significant - Social History Smoking Status: Never Smoker Substance Use Type: Alcohol (occ) - Medications Home Medications: Home Medications Medication Instructions Recorded Confirmed Last Taken Type Carvedilol [Coreg] 25 mg PO BID 01/25/19 01/25/19 Unknown History Furosemide [Lasix TAB] 40 mg PO QDAY 01/25/19 01/25/19 Unknown History Hydralazine HCl 50 mg PO TID 01/25/19 01/25/19 Unknown History Insulin Glargine,Hum.rec.anlog 14 units SQ DAILY 01/25/19 01/25/19 Unknown History [Lantus] Levothyroxine [Synthroid] 75 mcg PO QAM 01/25/19 01/25/19 Unknown History Rosuvastatin Calcium 5 mg PO DAILY 01/25/19 01/25/19 Unknown History glipiZIDE [Glipizide] 5 mg PO DAILY 01/25/19 01/25/19 Unknown History Calcitriol [Rocaltrol] 0.5 mcg PO QDAY #30 capsule 01/28/19 Unknown Rx Calcium Carbonate [Tums 500MG CHEW] 1,000 mg PO TID 30 Days tablet 01/28/19 Unknown Rx Lisinopril [Zestril TAB] 40 mg PO QDAY #30 tablet 01/28/19 Unknown Rx NIFEdipine XL [Procardia Xl] 60 mg PO Q12HR #60 tablet 01/28/19 Unknown Rx ED Review of Systems ROS: Stated complaint: SOB Other details as noted in HPI Constitutional: no symptoms reported Eyes: denies: eye pain ENT: denies: throat pain Respiratory: shortness of breath Cardiovascular: denies: chest pain Endocrine: no symptoms reported Gastrointestinal: denies: abdominal pain Genitourinary: denies: dysuria Musculoskeletal: denies: back pain Neurological: denies: headache Physical Exam - Physical Exam Vital Signs: Vital Signs 07/19/19 22:53 Temperature 98.4 F Pulse Rate 71 Respiratory 18 Rate Blood Pressure 141/59 O2 Sat by Pulse 96 Oximetry Physical Exam: GEN: WD WN F sitting in chair in NAD HEENT: EOMI NECK: Trachea midline LUNGS: RLL cracklesNo resp Distress CV: RRR no m/r/g ABD: S/NT/ND SKIN: No Diaphoresis NEURO: GCS 15 MS: no evidence of acute injury ED Course Vital Signs 07/19/19 22:53 Temperature 98.4 F Pulse Rate 71 Respiratory 18 Rate Blood Pressure 141/59 O2 Sat by Pulse 96 Oximetry - Consultations Consultation #1: 07/20/19 00:41 nephrology paged 07/20/19 00:48 case d/w Dr Smith- april chavira for HD tonight. ok to give insulin/d50/Ca+ Consultation #2: 07/20/19 00:49 Charge nurse Marian instructed to contact monogram technician HD nurse per Dr Smith's request ED Medical Decision Making - Lab Data Result diagrams: 07/19/19 23:08 07/19/19 23:08 Laboratory Tests 07/19/19 07/19/19 23:08 23:08 WBC 7.7 RBC 2.94 L Hgb 9.6 L Hct 29.0 L MCV 99 H MCH 33 H MCHC 33 RDW 15.0 Plt Count 243 Sodium 135 L Potassium 5.7 H Chloride 96.8 L Carbon Dioxide 21 L Anion Gap 23 BUN 98 H Creatinine 11.6 H Estimated GFR 3 BUN/Creatinine Ratio 8 Glucose 147 H Calcium 8.1 L Total Bilirubin 0.40 AST 38 ALT 35 Alkaline Phosphatase 76 Troponin T 0.122 H* Total Protein 7.3 Albumin 4.0 Albumin/Globulin Ratio 1.2 - EKG Data -: EKG Interpreted by Me EKG shows normal: sinus rhythm Rate: normal - EKG Data Interpretation: other (peaked t waves) - Radiology Data Radiology results: image reviewed (CXR) interpreted by me: CXR- R pleural effusion - Differential Diagnosis ESRD, hyperkalemia, pulm edema Critical care attestation.: If time is entered above; I have spent that time in minutes in the direct care of this critically ill patient, excluding procedure time. ED Disposition Clinical Impression: ESRD needing dialysis, Hyperkalemia, Pleural effusion Disposition: OP ADMIT IP TO THIS HOSP Is pt being admited?: Yes Does the pt Need Aspirin: No Condition: Fair Time of Disposition: 00:49 (Hospitalist paged (Dr Vasquez))
--- NOTE | 2019-07-20 00:47 | XRay Report ---
CHEST 2 VIEWS INDICATION / CLINICAL INFORMATION: SOB. Missed dialysis today. COMPARISON: 01/26/19 FINDINGS: SUPPORT DEVICES: Right PermCath is unchanged. HEART / MEDIASTINUM: Heart is mildly enlarged but stable. Mild pulmonary venous hypertension. LUNGS / PLEURA: Mild bibasilar pulmonary edema with small bilateral pleural effusions, right larger t wren left. No pneumothorax. ADDITIONAL FINDINGS: No significant additional findings. IMPRESSION: 1. Mild cardiomegaly with mild pulmonary edema and small pleural effusions. Signer Name: Padmaja Cade MD Signed: 07/20/2019 12:42 AM Workstation Name: [id number]
[2019-07-20] MEDS ORDERED: SODIUM CHLORIDE 0.9% 100 ML IV PRN ×2 (00:51→03:03)
[2019-07-20] MEDS ORDERED: DEXTROSE 50% IN WATER (25GM) 50 ML SYRINGE IV ONE (00:53)
[2019-07-20] MEDS ORDERED: INSULIN REGULAR, HUMAN 100 UNITS/1 ML IV ONE (00:53)
[2019-07-20 02:45] LABS: Chol/HDL Ratio 1.72 %
--- NOTE | 2019-07-20 03:11 | History and Physical Report ---
History of Present Illness Date of examination: 07/20/19 Date of admission: 07/20/19 02:05 Chief complaint: Shortness of breath History of present illness: Patient is a 74-year-old female with history of ESRD on HD who presented to the ED on account of few hours history of worsening sob. She stated that she missed her dialysis today because she had other appointments. She has associated cough productive of whitish sputum and bilateral leg swelling. She denies chest pain, palpitation, diaphoresis, fever, chills, headaches, nausea, vomiting, lightheadedness, syncope or LOC. No abdominal pain, constipation or diarrhea. Past History Past Medical History: diabetes, dialysis (M/W/F), ESRD, hypertension, hyperlipi demia, hypothyroidism Past Surgical History: (X2), thyroidectomy, Other (Vas-cath, AV graft in left arm, LT eye surgery) Social history: other (patient admits to occasional alcohol use but denies tobacco or illicit drug use) Family history: diabetes (mother), hypertension (mother, father) Medications and Allergies Allergies Allergy/AdvReac Type Severity Reaction Status Date / Time No Known Allergies Allergy Verified 07/19/19 22:48 Home Medications Medication Instructions Recorded Confirmed Last Taken Type Carvedilol [Coreg] 25 mg PO BID 01/25/19 07/20/19 07/19/19 History Furosemide [Lasix TAB] 40 mg PO QDAY 01/25/19 07/20/19 07/19/19 History Insulin Glargine,Hum.rec.anlog 14 units SQ DAILY 01/25/19 07/20/19 07/19/19 History [Lantus] Levothyroxine [Synthroid] 75 mcg PO QAM 01/25/19 07/20/19 07/19/19 History Rosuvastatin Calcium 5 mg PO DAILY 01/25/19 07/20/19 07/19/19 History glipiZIDE [Glipizide] 5 mg PO DAILY 01/25/19 07/20/19 07/19/19 History Calcitriol [Rocaltrol] 0.5 mcg PO QDAY #30 capsule 01/28/19 07/20/19 Unknown Rx Calcium Carbonate [Tums 500MG CHEW] 1,000 mg PO TID 30 Days tablet 01/28/19 07/20/19 Unknown Rx NIFEdipine XL [Procardia Xl] 60 mg PO Q12HR #60 tablet 01/28/19 07/20/19 07/19/19 Rx Vitamin D3 1,000 UNIT TAB 2,000 07/20/19 Unknown History Active Meds: Active Medications Sodium Chloride (Nacl 0.9%) 100 mls @ 999 mls/hr IV SANTOS PRN PRN Reason: Hypotension Sodium Chloride (Nacl 0.9%) 100 mls @ 999 mls/hr IV SANTOS PRN PRN Reason: Hypotension Review of Systems All systems: negative (all other systems reviewed with the patient and are negative unless otherwise stated above) Exam - Constitutional Vitals: Temp Pulse Resp BP Pulse Ox 98.0 F 82 20 191/82 97 07/20/19 02:48 07/20/19 02:48 07/20/19 02:48 07/20/19 02:48 07/20/19 02:48 General appearance: Present: no acute distress, well-nourished - EENT Eyes: Present: PERRL, EOM intact ENT: hearing intact, clear oral mucosa - Neck Neck: Present: supple, normal ROM - Respiratory Respiratory effort: normal Respiratory: bilateral: diminished, rales - Cardiovascular Rhythm: regular Heart Sounds: Present: S1 & S2 - Extremities Extremities: pulses symmetrical Extremity abnormal: edema (trace edema in BLE) Peripheral Pulses: within normal limits - Abdominal General gastrointestinal: Present: soft, non-tender, non-distended, normal bowel sounds Female genitourinary: Present: deferred - Rectal Rectal Exam: deferred - Integumentary Integumentary: Present: clear, warm, dry - Musculoskeletal Musculoskeletal: gait normal, strength equal bilaterally - Psychiatric Psychiatric: appropriate mood/affect, intact judgment & insight - Neurologic Neurologic: CNII-XII intact, moves all extremities Results - Labs CBC & Chem 7: 07/19/19 23:08 07/19/19 23:08 Labs: Laboratory Last Values WBC 7.7 K/mm3 (4.5-11.0) 07/19/19 23:08 RBC 2.94 M/mm3 (3.65-5.03) L 07/19/19 23:08 Hgb 9.6 gm/dl (10.1-14.3) L 07/19/19 23:08 Hct 29.0 % (30.3-42.9) L 07/19/19 23:08 MCV 99 fl (79-97) H 07/19/19 23:08 MCH 33 pg (28-32) H 07/19/19 23:08 MCHC 33 % (30-34) 07/19/19 23:08 RDW 15.0 % (13.2-15.2) 07/19/19 23:08 Plt Count 243 K/mm3 (140-440) 07/19/19 23:08 Sodium 135 mmol/L (137-145) L 07/19/19 23:08 Potassium 5.7 mmol/L (3.6-5.0) H 07/19/19 23:08 Chloride 96.8 mmol/L (98-107) L 07/19/19 23:08 Carbon Dioxide 21 mmol/L (22-30) L 07/19/19 23:08 Anion Gap 23 mmol/L 07/19/19 23:08 BUN 98 mg/dL (7-17) H 07/19/19 23:08 Creatinine 11.6 mg/dL (0.7-1.2) H 07/19/19 23:08 Estimated GFR 3 ml/min 07/19/19 23:08 BUN/Creatinine Ratio 8 % 07/19/19 23:08 Glucose 147 mg/dL (65-100) H 07/19/19 23:08 Calcium 8.1 mg/dL (8.4-10.2) L 07/19/19 23:08 Total Bilirubin 0.40 mg/dL (0.1-1.2) 07/19/19 23:08 AST 38 units/L (5-40) 07/19/19 23:08 ALT 35 units/L (7-56) 07/19/19 23:08 Alkaline Phosphatase 76 units/L (35-129) 07/19/19 23:08 Troponin T 0.122 ng/mL (0.00-0.029) H* 07/19/19 23:08 NT-Pro-B Natriuret Pep 53299 pg/mL (0-900) H 07/19/19 23:08 Total Protein 7.3 g/dL (6.3-8.2) 07/19/19 23:08 Albumin 4.0 g/dL (3.9-5) 07/19/19 23:08 Albumin/Globulin Ratio 1.2 % 07/19/19 23:08 Triglycerides 101 mg/dL (2-149) 07/19/19 23:08 Cholesterol 131 mg/dL (50-199) 07/19/19 23:08 LDL Cholesterol Direct 45 mg/dL (50-130) L 07/19/19 23:08 HDL Cholesterol 76 mg/dL (40-59) H 07/19/19 23:08 Cholesterol/HDL Ratio 1.72 % 07/19/19 23:08 - Imaging and Cardiology Chest x-ray: report reviewed Assessment and Plan Assessment and plan: Fluid overload in ESRD -due to missed dialysis -Nephrology consulted, pt to undergo HD today Hypertensive urgency -On antihypertensives, monitor BP Elevated troponin -Likely secondary to demand ischemia -We'll continue serial troponin level monitoring -Patient denies acute chest pain -We will do echocardiogram to assess EF and valvular function Hyperkalemia -Expected to improve with dialysis Metabolic acidosis -2/2 CKD -We'll monitor level Hypothyroidism -Continue Synthroid Hyperlipidemia -Continue statin AOCD -H/H stable DVT prophylaxis with heparin
[2019-07-20] MEDS ORDERED: hydrALAZINE 20 MG/1 ML INJ IV PRN (03:24)
[2019-07-20] MEDS ORDERED: DEXTROSE 50% IN WATER (25GM) 50 ML SYRINGE IV PRN (03:42)
[2019-07-20 04:34] LABS: Hepatitis B Surface Antigen Non-Reactive (Negative); Hepatitis C Virus Antibody Non-Reactive (NonReactive)
[2019-07-20] MEDS: HEPARIN 5,000 UNIT/1 ML VIAL SUB-Q SCH ×4 (05:18→21:54)
[2019-07-20] MEDS: LEVOTHYROXINE 75 MCG TAB PO SCH (05:26)
[2019-07-20] MEDS: INSULIN LISPRO 100 UNIT/ML SUB-Q SCH ×4 (08:29→21:54)
[2019-07-20] MEDS: CALCIUM CARBONATE 500 MG TAB CHEW PO SCH ×3 (08:29→21:52)
--- NOTE | 2019-07-20 09:29 | Consultation ---
History of Present Illness - History of Present Illness 74 year old with medical history significant for HTN, DM type II longstanding for about 20 years , ESRD on hemodialysis via a Left arm AVF on Friday, Friday and Friday, presenting with complaints of shortness of breath following missed dialysis . She does not have a reason for missing her dialysis treatment and apparently just decided not to go to her scheduled treatment. There is associated exertional dypsnea , orthopnea , PND. Patient denies any associated fevers or chills.Denies any lower extremity edema. Past History Past Medical History: diabetes, dialysis (M/W/F), ESRD, hypertension, hyperlipidemia, hypothyroidism Past Surgical History: (X2), thyroidectomy, Other (Vas-cath, AV graft in left arm, LT eye surgery) Social history: other (patient admits to occasional alcohol use but denies tobacco or illicit drug use) Family history: diabetes (mother), hypertension (mother, father) Medications and Allergies Allergies Allergy/AdvReac Type Severity Reaction Status Date / Time No Known Allergies Allergy Verified 07/19/19 22:48 Home Medications Medication Instructions Recorded Confirmed Last Taken Type Carvedilol [Coreg] 25 mg PO BID 01/25/19 07/20/19 07/19/19 History Furosemide [Lasix TAB] 40 mg PO QDAY 01/25/19 07/20/19 07/19/19 History Insulin Glargine,Hum.rec.anlog 14 units SQ DAILY 01/25/19 07/20/19 07/19/19 History [Lantus] Levothyroxine [Synthroid] 75 mcg PO QAM 01/25/19 07/20/19 07/19/19 History Rosuvastatin Calcium 5 mg PO DAILY 01/25/19 07/20/19 07/19/19 History glipiZIDE [Glipizide] 5 mg PO DAILY 01/25/19 07/20/19 07/19/19 History Calcitriol [Rocaltrol] 0.5 mcg PO QDAY #30 capsule 01/28/19 07/20/19 Unknown Rx Calcium Carbonate [Tums 500MG CHEW] 1,000 mg PO TID 30 Days tablet 01/28/19 07/20/19 Unknown Rx NIFEdipine XL [Procardia Xl] 60 mg PO Q12HR #60 tablet 01/28/19 07/20/19 07/19/19 Rx Vitamin D3 1,000 UNIT TAB 2,000 units PO DAILY 07/20/19 07/20/19 Unknown History Active Meds: Active Medications Atorvastatin Calcium (Lipitor) 10 mg PO DAILY [facility] Calcitriol (Rocaltrol) 0.5 mcg PO QDAY [facility] Calcium Carbonate/Glycine (Tums) 1,000 mg PO TID [facility] Last Admin: 07/20/19 08:29 Dose: 1,000 mg Documented by: Carvedilol (Coreg) 25 mg PO BID [facility] Dextrose (D50w (25gm) Syringe) 50 ml IV PRN PRN PRN Reason: Hypoglycemia Furosemide (Lasix) 40 mg PO QDAY [facility] Heparin Sodium (Porcine) (Heparin) 5,000 unit SUB-Q Q8HR [facility] Last Admin: 07/20/19 05:18 Dose: 5,000 unit Documented by: Hydralazine HCl (Apresoline) 10 mg IV Q4HR PRN PRN Reason: Blood Pressure Sodium Chloride (Nacl 0.9%) 100 mls @ 999 mls/hr IV SANTOS PRN PRN Reason: Hypotension Insulin Glargine (Lantus) 10 units SUB-Q QHS [facility] Insulin Human Lispro (Humalog) 0 unit SUB-Q ACHS [facility]; Protocol Last Admin: 07/20/19 08:29 Dose: 2 unit Documented by: Levothyroxine Sodium (Synthroid) 75 mcg PO QAM@0600 [facility] Last Admin: 07/20/19 05:26 Dose: 75 mcg Documented by: Nifedipine (Procardia Xl) 60 mg PO Q12HR [facility] Review of Systems Constitutional: fever, chills, fatigue, weakness, no weight loss, no weight gain Ears, nose, mouth and throat: deferred, ear pain Breasts: no deferred Cardiovascular: dyspnea on exertion, no chest pain, no orthopnea Respiratory: no cough, no cough with sputum Gastrointestinal: no abdominal pain, no nausea, no vomiting Musculoskeletal: no neck stiffness, no neck pain Integumentary: no deferred, no rash Psychiatric: no anxiety, no memory loss Endocrine: no cold intolerance, no heat intolerance Hematologic/Lymphatic: no easy bruising, no easy bleeding Exam - Vital Signs Vital signs: Vital Signs Temp Pulse Resp BP Pulse Ox 98.4 F 71 18 141/59 96 07/19/19 22:53 07/19/19 22:53 07/19/19 22:53 07/19/19 22:53 07/19/19 22:53 - General Appearance General appearance: well-developed, well-nourished EENT: ATNC, PERRL Neck: Present: neck supple Respiratory: Decreased Breath Sounds Heart: regular, S1S2 Gastrointestinal: Present: normal, normoactive bowel sounds Integumentary: no rash Neurologic: no focal deficit, alert and oriented x3 Musculoskeletal: Absent: deferred, deformities Psychiatric: mood/affect appropriate Results - Lab Results 07/19/19 23:08 07/19/19 23:08 Most recent lab results Calcium 8.1 mg/dL (8.4-10.2) L 07/19/19 23:08 - Image Kidney/bladder ultrasound: other (I reviewed CXR with bibasilar patchy opacities consistent with congestion. ) Assessment and Plan - Patient Problems (1) ESRD needing dialysis Current Visit: Yes Status: Acute Plan to address problem: ESRD on hemodialysis - Received hemodialysis overnight - Repeat HD tomorrow if still inpatient - access: left arm AVF - has Right IJ cath which is scheduled to be removed. (2) HTN (hypertension) Current Visit: No Status: Acute Qualifiers: Hypertension type: essential hypertension Qualified Code(s): I10 - Essential (primary) hypertension Plan to address problem: HTN: uncontrolled. Ensure medications monitor Blood pressure (3) Diabetes Current Visit: No Status: Acute Plan to address problem: DM type II : uncontrolled. Ensure medications Monitor blood glucose. (4) Hyperkalemia Current Visit: Yes Status: Acute Plan to address problem: Hyperkalemia : Received hemodialysis overnight. Recheck labs. (5) Volume overload Current Visit: Yes Status: Acute Plan to address problem: Volume overload : - CXR with edema - Received HD only 2L removed per nurse.
[2019-07-20] MEDS ORDERED: ROSUVASTATIN CALCIUM 5 MG PO SCH (10:00)
[2019-07-20] MEDS: FUROSEMIDE 40 MG TAB PO SCH (10:27)
[2019-07-20] MEDS: CALCITRIOL 0.5 MCG CAP PO SCH (10:28)
[2019-07-20] MEDS: NIFEdipine XL 60 MG TAB PO SCH ×2 (10:30→21:53)
[2019-07-20] MEDS: carvediloL 25 MG TAB PO SCH ×2 (10:30→21:53)
--- NOTE | 2019-07-20 13:47 | Event Note ---
Date: 07/20/19 Patient seen and examined, clinically stable at this time. Continue current treatment plan. Obtain cardiology eval in the setting of Possible Type 2 FL but noted decreased EF. no prior record at our facility Hepatitis Profile is negative
[2019-07-20] MEDS ORDERED: INSULIN GLARGINE 100 UNITS/ML SUB-Q SCH (22:00)
[2019-07-21 06:25] LABS: Hematocrit 28.4 % (30.3-42.9); Hemoglobin 9.7 gm/dl (10.1-14.3); Mean Corpuscular HGB Conc 34 % (30-34); Mean Corpuscular Volume 97 fl (79-97); Platelet Count 226 K/mm3 (140-440); Red Blood Count 2.91 M/mm3 (3.65-5.03); Red Cell Distribution Width 14.9 % (13.2-15.2)
[2019-07-21 06:43] LABS: Calcium 8.3 mg/dL (8.4-10.2)
[2019-07-21] MEDS: HEPARIN 5,000 UNIT/1 ML VIAL SUB-Q SCH (07:27)
[2019-07-21] MEDS: LEVOTHYROXINE 75 MCG TAB PO SCH (07:27)
--- NOTE | 2019-07-21 07:54 | XRay Report ---
CHEST 1 VIEW INDICATION: Follow-up CHF, shortness of breath. COMPARISON: 07/19/2019 FINDINGS: Support devices: Right IJ dual-lumen catheter remains in good position terminating in the superior ri ght atrium. Heart: Mild cardiomegaly is stable Lungs/Pleura: Decreased pulmonary venous congestion and near resolution of small bilateral pleural ef fusions. No acute airspace disease or pneumothorax. Additional findings: None. IMPRESSION: Near resolution of CHF findings since 07/19/2019. Signer Name: Asim Vogt Jr, MD Signed: 07/21/2019 7:50 AM Workstation Name: [id number]
[2019-07-21] MEDS: INSULIN LISPRO 100 UNIT/ML SUB-Q SCH ×2 (08:05→13:13)
[2019-07-21] MEDS: CALCIUM CARBONATE 500 MG TAB CHEW PO SCH (08:06)
[2019-07-21] MEDS: NIFEdipine XL 60 MG TAB PO SCH (09:13)
[2019-07-21] MEDS: FUROSEMIDE 40 MG TAB PO SCH (09:13)
[2019-07-21] MEDS: carvediloL 25 MG TAB PO SCH (09:15)
[2019-07-21] MEDS: CALCITRIOL 0.5 MCG CAP PO SCH (09:15)
--- NOTE | 2019-07-21 10:10 | Consultation ---
<TANESHA KILLIAN - Last Filed: 07/21/19 10:23> History of Present Illness Consult date: 07/21/19 Consult reason: elevated troponin History of present illness: This is a 74-year old woman with hypertension, end stage renal disease, on hemodialysis who presented 07/19 with shortness of breath, admitted with volume overload secondary to missed dialysis. Chest x-ray showed mild cardiomegaly with mild interstitial edema. A cardiac consultation has been requested for elevated troponin in the setting of renal failure. There are no reports of chest pain. An ECG is sinus rhythm, no acute ischemic changes. Further evaluation with an echocardiogram reveals severe pulmonary hypertension, PASP 81 mmHG. In addition, there is a decreased left ventricular systolic function, ejection fraction 35-40%. Findings are new when compared to an outpatient echocardiogram done 4 months ago that reports a normal left ventricular ejection fraction, 50-55%. Today, patient is undergoing dialysis. She reports her breathing is better and lower extremity edema has resolved. Patient has no chest pain and she denies palpitations. Past History Past Medical History: diabetes, dialysis (M/W/F), ESRD, hypertension, hyperlipidemia, hypothyroidism Past Surgical History: (X2), thyroidectomy, Other (Vas-cath, AV graft in left arm, LT eye surgery) Social history: other (patient admits to occasional alcohol use but denies tobacco or illicit drug use) Family history: diabetes (mother), hypertension (mother, father) Medications and Allergies Allergies Allergy/AdvReac Type Severity Reaction Status Date / Time No Known Allergies Allergy Verified 07/19/19 22:48 Home Medications Medication Instructions Recorded Confirmed Last Taken Type Carvedilol [Coreg] 25 mg PO BID 01/25/19 07/20/19 07/19/19 History Furosemide [Lasix TAB] 40 mg PO QDAY 01/25/19 07/20/19 07/19/19 History Insulin Glargine,Hum.rec.anlog 14 units SQ DAILY 01/25/19 07/20/19 07/19/19 History [Lantus] Levothyroxine [Synthroid] 75 mcg PO QAM 01/25/19 07/20/19 07/19/19 History Rosuvastatin Calcium 5 mg PO DAILY 01/25/19 07/20/19 07/19/19 History glipiZIDE [Glipizide] 5 mg PO DAILY 01/25/19 07/20/19 07/19/19 History Calcitriol [Rocaltrol] 0.5 mcg PO QDAY #30 capsule 01/28/19 07/20/19 Unknown Rx Calcium Carbonate [Tums 500MG CHEW] 1,000 mg PO TID 30 Days tablet 01/28/19 07/20/19 Unknown Rx NIFEdipine XL [Procardia Xl] 60 mg PO Q12HR #60 tablet 01/28/19 07/20/19 07/19/19 Rx Vitamin D3 1,000 UNIT TAB 2,000 units PO DAILY 07/20/19 07/20/19 Unknown History Active Meds: Active Medications Atorvastatin Calcium (Lipitor) 10 mg PO DAILY [facility] Last Admin: 07/21/19 09:15 Dose: 10 mg Documented by: Calcitriol (Rocaltrol) 0.5 mcg PO QDAY [facility] Last Admin: 07/21/19 09:15 Dose: 0.5 mcg Documented by: Calcium Carbonate/Glycine (Tums) 1,000 mg PO TID [facility] Last Admin: 07/21/19 08:06 Dose: 1,000 mg Documented by: Carvedilol (Coreg) 25 mg PO BID [facility] Last Admin: 07/21/19 09:15 Dose: 25 mg Documented by: Dextrose (D50w (25gm) Syringe) 50 ml IV PRN PRN PRN Reason: Hypoglycemia Furosemide (Lasix) 40 mg PO QDAY [facility] Last Admin: 07/21/19 09:13 Dose: Not Given Documented by: Heparin Sodium (Porcine) (Heparin) 5,000 unit SUB-Q Q8HR [facility] Last Admin: 07/21/19 07:27 Dose: 5,000 unit Documented by: Hydralazine HCl (Apresoline) 10 mg IV Q4HR PRN PRN Reason: Blood Pressure Sodium Chloride (Nacl 0.9%) 100 mls @ 999 mls/hr IV SANTOS PRN PRN Reason: Hypotension Insulin Glargine (Lantus) 10 units SUB-Q QHS [facility] Last Admin: 07/20/19 21:57 Dose: 10 units Documented by: Insulin Human Lispro (Humalog) 0 unit SUB-Q [facility]; Protocol Last Admin: 07/21/19 08:05 Dose: 3 unit Documented by: Levothyroxine Sodium (Synthroid) 75 mcg PO QAM@0600 [facility] Last Admin: 07/21/19 07:27 Dose: 75 mcg Documented by: Nifedipine (Procardia Xl) 60 mg PO Q12HR [facility] Last Admin: 07/21/19 09:13 Dose: Not Given Documented by: Physical Examination Vital Signs Temp Pulse Resp BP Pulse Ox 98.4 F 71 18 141/59 96 07/19/19 22:53 07/19/19 22:53 07/19/19 22:53 07/19/19 22:53 07/19/19 22:53 General appearance: no acute distress HEENT: Positive: PERRL Neck: Positive: trachea midline Cardiac: Positive: Reg Rate and Rhythm Lungs: Positive: Normal Breath Sounds Neuro: Positive: Grossly Intact Extremities: Absent: edema Results 07/21/19 05:53 07/21/19 05:53 CBC 07/21/19 Range/Units 05:53 WBC 5.4 (4.5-11.0) K/mm3 RBC 2.91 L (3.65-5.03) M/mm3 Hgb 9.7 L (10.1-14.3) gm/dl Hct 28.4 L (30.3-42.9) % Plt Count 226 (140-440) K/mm3 Comprehensive Metabolic Panel 07/21/19 Range/Units 05:53 Sodium 135 L (137-145) mmol/L Potassium 5.0 (3.6-5.0) mmol/L Chloride 91.3 L (98-107) mmol/L Carbon Dioxide 29 D (22-30) mmol/L BUN 56 H (7-17) mg/dL Creatinine 8.7 H (0.7-1.2) mg/dL Glucose 102 H (65-100) mg/dL Calcium 8.3 L (8.4-10.2) mg/dL Assessment and Plan Volume overload Acute CHF exacerbation echocardiogram reveals severe pulmonary hypertension, PASP 81 mmHG. In addition, there is a decreased left ventricular systolic function, ejection fraction 35-40%. ESRD on HD Hypertension Diabetes Elevated troponin in the setting of renal failure. Patient denies chest pain Recommendations: Dialysis for fluid removal. Sodium/Fluid restriction. Medical therapy for systolic heart failure. We will defer ischemic cardiac evaluation to be done as an outpatient. 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 <MABLE COLLIER - Last Filed: 07/21/19 11:15> Medications and Allergies Active Meds: Active Medications Atorvastatin Calcium (Lipitor) 10 mg PO DAILY [facility] Last Admin: 07/21/19 09:15 Dose: 10 mg Documented by: Calcitriol (Rocaltrol) 0.5 mcg PO QDAY [facility] Last Admin: 07/21/19 09:15 Dose: 0.5 mcg Documented by: Calcium Carbonate/Glycine (Tums) 1,000 mg PO TID [facility] Last Admin: 07/21/19 08:06 Dose: 1,000 mg Documented by: Carvedilol (Coreg) 25 mg PO BID [facility] Last Admin: 07/21/19 09:15 Dose: 25 mg Documented by: Dextrose (D50w (25gm) Syringe) 50 ml IV PRN PRN PRN Reason: Hypoglycemia Furosemide (Lasix) 40 mg PO QDAY [facility] Last Admin: 07/21/19 09:13 Dose: Not Given Documented by: Heparin Sodium (Porcine) (Heparin) 5,000 unit SUB-Q Q8HR [facility] Last Admin: 07/21/19 07:27 Dose: 5,000 unit Documented by: Hydralazine HCl (Apresoline) 10 mg IV Q4HR PRN PRN Reason: Blood Pressure Sodium Chloride (Nacl 0.9%) 100 mls @ 999 mls/hr IV SANTOS PRN PRN Reason: Hypotension Insulin Glargine (Lantus) 10 units SUB-Q QHS [facility] Last Admin: 07/20/19 21:57 Dose: 10 units Documented by: Insulin Human Lispro (Humalog) 0 unit SUB-Q [facility]; Protocol Last Admin: 07/21/19 08:05 Dose: 3 unit Documented by: Levothyroxine Sodium (Synthroid) 75 mcg PO QAM@0600 [facility] Last Admin: 07/21/19 07:27 Dose: 75 mcg Documented by: Lisinopril (Zestril) 40 mg PO QDAY [facility] Nifedipine (Procardia Xl) 60 mg PO Q12HR [facility] Last Admin: 07/21/19 09:13 Dose: Not Given Documented by: Physical Examination Vital Signs Temp Pulse Resp BP Pulse Ox 98.4 F 71 18 141/59 96 07/19/19 22:53 07/19/19 22:53 07/19/19 22:53 07/19/19 22:53 07/19/19 22:53 Results 07/21/19 05:53 07/21/19 05:53 CBC 07/21/19 Range/Units 05:53 WBC 5.4 (4.5-11.0) K/mm3 RBC 2.91 L (3.65-5.03) M/mm3 Hgb 9.7 L (10.1-14.3) gm/dl Hct 28.4 L (30.3-42.9) % Plt Count 226 (140-440) K/mm3 Comprehensive Metabolic Panel 07/21/19 Range/Units 05:53 Sodium 135 L (137-145) mmol/L Potassium 5.0 (3.6-5.0) mmol/L Chloride 91.3 L (98-107) mmol/L Carbon Dioxide 29 D (22-30) mmol/L BUN 56 H (7-17) mg/dL Creatinine 8.7 H (0.7-1.2) mg/dL Glucose 102 H (65-100) mg/dL Calcium 8.3 L (8.4-10.2) mg/dL Assessment and Plan Has seen and evaluated the patient and agree with the assessment and plan. The patient has been removed for volume overload secondary to missed dialysis. During the patient's evaluation echocardiogram was done which showed a newly decreased left ventricular systolic function with ejection fraction of 35-40% as well as severe pulmonary hypertension with a SRAM pulmonary arterial pressure of 81 mmHg. At this time patient will be started on goal-directed medical therapy. Patient will require further ischemic evaluation given new onset LV dysfunction but this may be done as an outpatient.
--- NOTE | 2019-07-21 11:59 | Discharge Summary ---
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 She stated that she missed her dialysis today because she had other appointments. She has associated cough productive of whitish sputum and bilateral leg swelling. She denies chest pain, palpitation, diaphoresis, fever, chills, headaches, nausea, vomiting, lightheadedness, syncope or LOC. No abdominal pain, constipation or diarrhea. Acute diastolic congestive heart failure -due to missed dialysis -Improved following diuresis with dialysis -Status of counseling about diuresis and dialysis compliance -Nephrology consulted, pt to undergo HD today -Outpatient ischemic workup Severe pulmonary hypertension -Pulmonary evaluation outpatient and outpatient ischemic workup Hypertensive urgency -On antihypertensives, monitor BP Elevated troponin -Cardiology input noted, outpatient ischemic workup Hyperkalemia -Expected to improve with dialysis Metabolic acidosis -2/2 CKD -We'll monitor level Hypothyroidism -Continue Synthroid Hyperlipidemia -Continue statin AOCD -H/H stable Disposition: TO HOME OR SELFCARE Time spent for discharge: 35 MINS Core Measure Documentation - Palliative Care Palliative Care/ Comfort Measures: Not Applicable - Core Measures Any of the following diagnoses?: none Exam - Physical Exam Narrative exam: VITAL SIGNS: Reviewed. GENERAL: The patient appears normally developed, Vital signs as documented. HEAD: No signs of head trauma. EYES: Pupils are equal. Extraocular motions intact. EARS: Hearing grossly intact. MOUTH: Oropharynx is normal. NECK: No adenopathy, no JVD. CHEST: Chest with clear breath sounds bilaterally. No wheezes, rales, or rhonchi. CARDIAC: Regular rate and rhythm. S1 and S2, without murmurs, gallops, or rubs. VASCULAR: Trace Edema. Peripheral pulses normal and equal in all extremities. ABDOMEN: Soft, non tender and non distended. No rebound or guarding, and no masses palpated. Bowel Sounds normal. MUSCULOSKELETAL: Good range of motion of all major joints. Extremities without clubbing, cyanosis. Trace edema. NEUROLOGIC EXAM: Alert and oriented x 3 No focal sensory or strength deficits. Speech normal. Follows commands. PSYCHIATRIC: Mood normal. SKIN: detail exam as documented in skin assessment - Constitutional Vitals: Temp Pulse Resp BP Pulse Ox 97.8 F 64 20 150/65 91 07/21/19 09:35 07/21/19 11:15 07/21/19 10:00 07/21/19 11:15 07/21/19 07:11 Plan Activity: advance as tolerated, fall precautions Diet: low fat, low salt, renal Special Instructions: restrict fluid intake to (1200cc/day), record daily weights, record daily BP diary Follow up with: PRIMARY CAREMD [Primary Care Provider] - 7 Days GIULIANA FLORES MD [Staff Physician] - 7 Days HARI ALMARAZ MD [Staff Physician] - 7 Days JOSEP WILKINS MD [Staff Physician] - 7 Days Prescriptions: Lisinopril [Zestril TAB] 40 mg PO QDAY #30 tablet
--- NOTE | 2019-07-21 15:04 | Progress Note ---
Assessment and Plan - Patient Problems (1) ESRD needing dialysis Current Visit: Yes Status: Acute Plan to address problem: ESRD on hemodialysis - Received hemodialysis x 2 since admission. - access: left arm AVF - has Right IJ cath which is scheduled to be removed. (2) HTN (hypertension) Current Visit: No Status: Acute Qualifiers: Hypertension type: essential hypertension Qualified Code(s): I10 - Essential (primary) hypertension Plan to address problem: HTN: uncontrolled. Ensure medications monitor Blood pressure (3) Diabetes Current Visit: No Status: Acute Plan to address problem: DM type II : uncontrolled. Ensure medications Monitor blood glucose. (4) Hyperkalemia Current Visit: Yes Status: Acute Plan to address problem: Hyperkalemia : Received hemodialysis Recheck labs. (5) Volume overload Current Visit: Yes Status: Acute Plan to address problem: Volume overload : - CXR with edema - Received HD again today. Subjective Interval history: 74 year old with medical history significant for HTN, DM type II longstanding for about 20 years , ESRD on hemodialysis via a Left arm AVF on Friday, Friday and Friday, presenting with complaints of shortness of breath following missed dialysis . She does not have a reason for missing her dialysis treatment and apparently just decided not to go to her scheduled treatment. There is associated exertional dypsnea , orthopnea , PND. Patient denies any associated fevers or chills.Denies any lower extremity edema. Patient seen today had dialysis today only 2L removed by nurse remains on supplemental oxygen though oxygen saturation improved to 95% was seen by cardiology today. Objective - Vital Signs Vital signs: Vital Signs - 12hr 07/21/19 07/21/19 07/21/19 07:11 09:35 09:45 Temperature 98.4 F 97.8 F Pulse Rate 64 76 72 Pulse Rate [ Left Radial] Respiratory 18 18 Rate Blood Pressure 132/57 91/76 150/71 O2 Sat by Pulse 91 Oximetry 07/21/19 07/21/19 07/21/19 10:00 10:15 10:30 Temperature Pulse Rate 72 69 66 Pulse Rate [ 64 Left Radial] Respiratory 20 Rate Blood Pressure 151/73 155/69 147/67 O2 Sat by Pulse Oximetry 07/21/19 07/21/19 07/21/19 10:45 11:00 11:15 Temperature Pulse Rate 66 62 64 Pulse Rate [ Left Radial] Respiratory Rate Blood Pressure 142/67 143/66 150/65 O2 Sat by Pulse Oximetry 07/21/19 07/21/19 07/21/19 11:30 11:45 12:00 Temperature Pulse Rate 62 62 66 Pulse Rate [ Left Radial] Respiratory Rate Blood Pressure 134/63 146/68 161/75 O2 Sat by Pulse Oximetry 07/21/19 07/21/19 12:15 12:30 Temperature Pulse Rate 66 64 Pulse Rate [ Left Radial] Respiratory Rate Blood Pressure 152/70 160/73 O2 Sat by Pulse Oximetry - General Appearance General appearance: well-developed, well-nourished EENT: ATNC, PERRL, mucous membranes moist Neck: no JVD Respiratory: Present: Decreased Breath Sounds Cardiology: regular, S1S2 Gastrointestinal: normal, normoactive bowel sounds Integumentary: no rash Neurologic: alert and oriented x3, CN 3-12 intact - Lab 07/21/19 05:53 07/21/19 05:53 Most recent lab results Calcium 8.3 mg/dL (8.4-10.2) L 07/21/19 05:53 - Imaging Chest x-ray: image reviewed (I reviewed CXR with hazy bilateral opacities. ) Medications & Allergies - Medications Allergies/Adverse Reactions: Allergies No Known Allergies Allergy (Verified 07/19/19 22:48) Home Medications: Home Medications Medication Instructions Recorded Confirmed Last Taken Type Carvedilol [Coreg] 25 mg PO BID 01/25/19 07/20/19 07/19/19 History Furosemide [Lasix TAB] 40 mg PO QDAY 01/25/19 07/20/19 07/19/19 History Insulin Glargine,Hum.rec.anlog 14 units SQ DAILY 01/25/19 07/20/19 07/19/19 History [Lantus] Levothyroxine [Synthroid] 75 mcg PO QAM 01/25/19 07/20/19 07/19/19 History Rosuvastatin Calcium 5 mg PO DAILY 01/25/19 07/20/19 07/19/19 History glipiZIDE [Glipizide] 5 mg PO DAILY 01/25/19 07/20/19 07/19/19 History Calcitriol [Rocaltrol] 0.5 mcg PO QDAY #30 capsule 01/28/19 07/20/19 Unknown Rx Calcium Carbonate [Tums 500MG CHEW] 1,000 mg PO TID 30 Days tablet 01/28/19 07/20/19 Unknown Rx NIFEdipine XL [Procardia Xl] 60 mg PO Q12HR #60 tablet 01/28/19 07/20/19 07/19/19 Rx Vitamin D3 1,000 UNIT TAB 2,000 units PO DAILY 07/20/19 07/20/19 Unknown History Lisinopril [Zestril TAB] 40 mg PO QDAY #30 tablet 07/21/19 Unknown Rx Active Medications: Generic Name Dose Route Start Last Admin Trade Name Freq PRN Reason Stop Dose Admin Atorvastatin Calcium 10 mg 07/20/19 10:00 07/21/19 09:15 Lipitor PO 10 mg DAILY [facility] Administration Calcitriol 0.5 mcg 07/20/19 10:00 07/21/19 09:15 Rocaltrol PO 0.5 mcg QDAY [facility] Administration Calcium Carbonate/Glycine 1,000 mg 07/20/19 08:00 07/21/19 08:06 Tums PO 1,000 mg TID [facility] Administration Carvedilol 25 mg 07/20/19 10:00 07/21/19 09:15 Coreg PO 25 mg BID [facility] Administration Dextrose 50 ml 07/20/19 03:42 D50w (25gm) Syringe IV PRN PRN Hypoglycemia Furosemide 40 mg 07/20/19 10:00 07/21/19 09:13 Lasix PO Not Given QDAY [facility] Heparin Sodium (Porcine) 5,000 unit 07/20/19 06:00 07/21/19 07:27 Heparin SUB-Q 5,000 unit Q8HR [facility] Administration Hydralazine HCl 10 mg 07/20/19 03:24 Apresoline IV Q4HR PRN Blood Pressure Sodium Chloride 100 mls @ 999 mls/hr 07/20/19 03:03 Nacl 0.9% IV SANTOS PRN Hypotension Insulin Glargine 10 units 07/20/19 22:00 07/20/19 21:57 Lantus SUB-Q 10 units QHS [facility] Administration Insulin Human Lispro 0 unit 07/20/19 07:30 07/21/19 13:13 Humalog SUB-Q Not Given ACHS [facility] Protocol Levothyroxine Sodium 75 mcg 07/20/19 06:00 07/21/19 07:27 Synthroid PO 75 mcg QAM@0600 [facility] Administration Lisinopril 40 mg 07/22/19 10:00 Zestril PO QDAY [facility] Nifedipine 60 mg 07/20/19 10:00 07/21/19 09:13 Procardia Xl PO Not Given Q12HR [facility]
[2019-07-21 15:09] VITALS: BP 145/61
--- NOTE | 2019-07-21 15:11 | Consultation ---
Past History Past Medical History: diabetes, dialysis (M/W/F), ESRD, hypertension, hyperlipidemia, hypothyroidism Past Surgical History: (X2), thyroidectomy, Other (Vas-cath, AV graft in left arm, LT eye surgery) Social history: other (patient admits to occasional alcohol use but denies tobacco or illicit drug use) Family history: diabetes (mother), hypertension (mother, father) Medications and Allergies Allergies Allergy/AdvReac Type Severity Reaction Status Date / Time No Known Allergies Allergy Verified 07/19/19 22:48 Home Medications Medication Instructions Recorded Confirmed Last Taken Type Carvedilol [Coreg] 25 mg PO BID 01/25/19 07/20/19 07/19/19 History Furosemide [Lasix TAB] 40 mg PO QDAY 01/25/19 07/20/19 07/19/19 History Insulin Glargine,Hum.rec.anlog 14 units SQ DAILY 01/25/19 07/20/19 07/19/19 History [Lantus] Levothyroxine [Synthroid] 75 mcg PO QAM 01/25/19 07/20/19 07/19/19 History Rosuvastatin Calcium 5 mg PO DAILY 01/25/19 07/20/19 07/19/19 History glipiZIDE [Glipizide] 5 mg PO DAILY 01/25/19 07/20/19 07/19/19 History Calcitriol [Rocaltrol] 0.5 mcg PO QDAY #30 capsule 01/28/19 07/20/19 Unknown Rx Calcium Carbonate [Tums 500MG CHEW] 1,000 mg PO TID 30 Days tablet 01/28/19 07/20/19 Unknown Rx NIFEdipine XL [Procardia Xl] 60 mg PO Q12HR #60 tablet 01/28/19 07/20/19 07/19/19 Rx Vitamin D3 1,000 UNIT TAB 2,000 units PO DAILY 07/20/19 07/20/19 Unknown History Lisinopril [Zestril TAB] 40 mg PO QDAY #30 tablet 07/21/19 Unknown Rx Active Meds: Active Medications Atorvastatin Calcium (Lipitor) 10 mg PO DAILY [facility] Last Admin: 07/21/19 09:15 Dose: 10 mg Documented by: Calcitriol (Rocaltrol) 0.5 mcg PO QDAY [facility] Last Admin: 07/21/19 09:15 Dose: 0.5 mcg Documented by: Calcium Carbonate/Glycine (Tums) 1,000 mg PO TID [facility] Last Admin: 07/21/19 08:06 Dose: 1,000 mg Documented by: Carvedilol (Coreg) 25 mg PO BID [facility] Last Admin: 07/21/19 09:15 Dose: 25 mg Documented by: Dextrose (D50w (25gm) Syringe) 50 ml IV PRN PRN PRN Reason: Hypoglycemia Furosemide (Lasix) 40 mg PO QDAY [facility] Last Admin: 07/21/19 09:13 Dose: Not Given Documented by: Heparin Sodium (Porcine) (Heparin) 5,000 unit SUB-Q Q8HR [facility] Last Admin: 07/21/19 07:27 Dose: 5,000 unit Documented by: Hydralazine HCl (Apresoline) 10 mg IV Q4HR PRN PRN Reason: Blood Pressure Sodium Chloride (Nacl 0.9%) 100 mls @ 999 mls/hr IV SANTOS PRN PRN Reason: Hypotension Insulin Glargine (Lantus) 10 units SUB-Q QHS [facility] Last Admin: 07/20/19 21:57 Dose: 10 units Documented by: Insulin Human Lispro (Humalog) 0 unit SUB-Q [facility]; Protocol Last Admin: 07/21/19 13:13 Dose: Not Given Documented by: Levothyroxine Sodium (Synthroid) 75 mcg PO QAM@0600 [facility] Last Admin: 07/21/19 07:27 Dose: 75 mcg Documented by: Lisinopril (Zestril) 40 mg PO QDAY [facility] Nifedipine (Procardia Xl) 60 mg PO Q12HR [facility] Last Admin: 07/21/19 09:13 Dose: Not Given Documented by: Exam - Vital Signs Vital signs: Vital Signs Temp Pulse Resp BP Pulse Ox 98.4 F 71 18 141/59 96 07/19/19 22:53 07/19/19 22:53 07/19/19 22:53 07/19/19 22:53 07/19/19 22:53 Results - Lab Results 07/21/19 05:53 07/21/19 05:53 Most recent lab results Calcium 8.3 mg/dL (8.4-10.2) L 07/21/19 05:53 Assessment and Plan - Patient Problems (1) ESRD needing dialysis Current Visit: Yes Status: Acute (2) HTN (hypertension) Current Visit: No Status: Acute Qualifiers: Hypertension type: essential hypertension Qualified Code(s): I10 - Essential (primary) hypertension (3) Diabetes Current Visit: No Status: Acute (4) Hyperkalemia Current Visit: Yes Status: Acute (5) Volume overload Current Visit: Yes Status: Acute
[2019-07-22] MEDS ORDERED: LISINOPRIL 40 MG TAB PO SCH (10:00)
== END 2019-07-21 16:00 | disposition home or self-care (01) | DRG 280 ==
LOC: ED 22:43 → 2B-ACE 07-20 02:05 → OBSVTOIN 07-20 14:45
PROVIDERS: ADMIT Internal Medicine; ATTEND Internal Medicine
PROC: 5A1D70Z Performance of Urinary Filtration, Intermittent, Less than 6 Hours Per Day (ICD-10-PCS; principal; 2019-07-20)
PROC: 5A1D70Z Performance of Urinary Filtration, Intermittent, Less than 6 Hours Per Day (ICD-10-PCS; 2019-07-21)
DX: I21.A1 Myocardial infarction type 2 (principal); I50.31 Acute diastolic (congestive) heart failure; N18.6 End stage renal disease; E87.2 Acidosis; J90 Pleural effusion, not elsewhere classified; I13.2 Hypertensive heart and chronic kidney disease with heart failure and with stage 5 chronic kidney disease, or end stage renal disease; E87.5 Hyperkalemia; E87.70 Fluid overload, unspecified; I16.0 Hypertensive urgency; E03.9 Hypothyroidism, unspecified; Z99.2 Dependence on renal dialysis; Z79.4 Long term (current) use of insulin; E78.5 Hyperlipidemia, unspecified; D63.8 Anemia in other chronic diseases classified elsewhere; I27.20 Pulmonary hypertension, unspecified
CPT/HCPCS: 36415; 71045; 71046; 80048; 80053; 80061; 80074; 82962; 83880; 84484; 85027; 93005; 93010; 93306; G0378; A9270-GY; J0610; J1644; J1815

== ENCOUNTER 2019-08-10 09:39 | Observation (INO) | payer MEDICARE ==
--- NOTE | 2019-08-10 10:14 | Emergency Department Report ---
ED Syncope HPI - General Chief Complaint: Dyspnea/Respdistress Stated Complaint: SYNCOPE Time Seen by Provider: 08/10/19 10:01 - History of Present Illness Initial Comments: 74-year-old female with history of ESRD on dialysis, hypertension, and diabetes presents to the ED with complaints of dizziness and syncopal episode x prior to arrival. Patient states she was walking up the stairs to her consulting sme's office, Dr. Oquendo, and suddenly felt dizzy and passed out for a few seconds. Her states he caught her and she did not hit her head or pass out. Patient denies any shortness of breath or chest pain. She states she has been having intermittent mild to moderate headaches for the past 2 days and states this is abnormal for her. Denies worst headache of her life. States upon waking this morning she felt dizzy and had weakness that was generalized. She denies any numbness/tingling, vision changes, swelling in her legs or pain, recent long travel, or history of HI/CVA/DVT/PE. Patient was admitted to the hospital 07/20/2019 for shortness of breath and states her period of 2 days. 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 Link and Dr. Freire. Patient states her last dialysis was yesterday. She denies any current headache or weakness Timing/Prior Episodes: single episode today Precipitating Factors: Positive: lightheadedness Context: activity Loss of Consciousness: brief (seconds) - Related Data Allergies/Adverse Reactions: Allergies No Known Allergies Allergy (Verified 07/19/19 22:48) Home Medications: Ambulatory Orders Carvedilol [Coreg] 25 mg PO BID 01/25/19 Furosemide [Lasix TAB] 40 mg PO QDAY 01/25/19 Insulin Glargine,Hum.rec.anlog [Lantus] 14 units SQ DAILY 01/25/19 Levothyroxine [Synthroid] 75 mcg PO QAM 01/25/19 Rosuvastatin Calcium 5 mg PO DAILY 01/25/19 glipiZIDE [Glipizide] 5 mg PO DAILY 01/25/19 Calcitriol [Rocaltrol] 0.5 mcg PO QDAY #30 capsule 01/28/19 Calcium Carbonate [Tums 500MG CHEW] 1,000 mg PO TID 30 Days tablet 01/28/19 NIFEdipine XL [Procardia Xl] 60 mg PO Q12HR #60 tablet 01/28/19 Vitamin D3 1,000 UNIT TAB 2,000 units PO DAILY 07/20/19 Lisinopril [Zestril TAB] 40 mg PO QDAY #30 tablet 07/21/19 ED Review of Systems ROS: Stated complaint: SYNCOPE Other details as noted in HPI Constitutional: denies: chills, fever Eyes: denies: eye pain, vision change ENT: denies: ear pain, throat pain Respiratory: denies: cough, shortness of breath, SOB with exertion, SOB at rest, wheezing Cardiovascular: denies: chest pain, palpitations Endocrine: no symptoms reported Gastrointestinal: denies: abdominal pain, nausea, diarrhea Genitourinary: denies: urgency, dysuria, discharge Musculoskeletal: denies: back pain, joint swelling, arthralgia Skin: denies: rash, lesions Neurological: weakness. denies: numbness, paresthesias, abnormal gait, vertigo Psychiatric: denies: anxiety, depression Hematological/Lymphatic: denies: easy bleeding, easy bruising ED Past Medical Hx - Past Medical History Hx Hypertension: Yes Hx Diabetes: Yes Hx Renal Disease: Yes - Surgical History Additional Surgical History: x2. Vas cath. graft to left arm. left eye. goiter removed - Social History Smoking Status: Never Smoker Substance Use Type: Alcohol - Medications Home Medications: Home Medications Medication Instructions Recorded Confirmed Last Taken Type Carvedilol [Coreg] 25 mg PO BID 01/25/19 07/20/19 07/19/19 History Furosemide [Lasix TAB] 40 mg PO QDAY 01/25/19 07/20/19 07/19/19 History Insulin Glargine,Hum.rec.anlog 14 units SQ DAILY 01/25/19 07/20/19 07/19/19 History [Lantus] Levothyroxine [Synthroid] 75 mcg PO QAM 01/25/19 07/20/19 07/19/19 History Rosuvastatin Calcium 5 mg PO DAILY 01/25/19 07/20/19 07/19/19 History glipiZIDE [Glipizide] 5 mg PO DAILY 01/25/19 07/20/19 07/19/19 History Calcitriol [Rocaltrol] 0.5 mcg PO QDAY #30 capsule 01/28/19 07/20/19 Unknown Rx Calcium Carbonate [Tums 500MG CHEW] 1,000 mg PO TID 30 Days tablet 01/28/19 07/20/19 Unknown Rx NIFEdipine XL [Procardia Xl] 60 mg PO Q12HR #60 tablet 01/28/19 07/20/19 07/19/19 Rx Vitamin D3 1,000 UNIT TAB 2,000 units PO DAILY 07/20/19 07/20/19 Unknown History Lisinopril [Zestril TAB] 40 mg PO QDAY #30 tablet 07/21/19 Unknown Rx ED Physical Exam - General Limitations: No Limitations General appearance: alert, in no apparent distress - Head Head exam: Present: atraumatic, normocephalic - Eye Eye exam: Present: normal appearance, PERRL, EOMI. Absent: scleral icterus - ENT ENT exam: Present: normal exam - Neck Neck exam: Present: normal inspection - Respiratory Respiratory exam: Present: normal lung sounds bilaterally. Absent: respiratory distress, wheezes, rales, rhonchi - Cardiovascular Cardiovascular Exam: Present: regular rate, normal rhythm, normal heart sounds. Absent: rubs, gallop - GI/Abdominal GI/Abdominal exam: Present: soft, normal bowel sounds. Absent: distended, tenderness - Rectal Rectal exam: Present: deferred - Extremities Exam Extremities exam: Present: normal inspection, full ROM. Absent: tenderness, calf tenderness - Back Exam Back exam: Present: normal inspection - Neurological Exam Neurological exam: Present: alert, oriented X3, CN II-XII intact, normal gait, motor sensory deficit - Expanded Neurological Exam Expanded Speech: Present: fluid speech Cranial nerves: EOM's Intact: Normal, Tongue Deviation: Normal, Facial Sensation: Normal Cerebellar function: Finger to Nose: Normal, Heel to Adan: Normal, Romberg: Normal Sensory exam: Upper Extremity Light Touch: Normal, Lower Extremity Light Touch: Normal - Psychiatric Psychiatric exam: Present: normal affect, normal mood - Skin Skin exam: Present: warm, dry, intact, normal color. Absent: rash, cyanosis, diaphoretic ED Course Vital Signs 08/10/19 08/10/19 08/10/19 09:53 10:00 11:31 Temperature 97.8 F Pulse Rate 70 Respiratory 18 18 Rate Blood Pressure 143/52 Blood Pressure [Left] O2 Sat by Pulse 92 92 97 Oximetry 08/10/19 08/10/19 08/10/19 11:46 12:00 12:15 Temperature Pulse Rate 59 L 61 61 Respiratory 14 20 17 Rate Blood Pressure 142/56 Blood Pressure [Left] O2 Sat by Pulse 99 97 98 Oximetry 08/10/19 08/10/19 08/10/19 12:30 12:46 13:00 Temperature Pulse Rate 60 62 64 Respiratory 12 16 21 Rate Blood Pressure 137/55 143/56 150/64 Blood Pressure [Left] O2 Sat by Pulse 99 98 96 Oximetry 08/10/19 08/10/19 08/10/19 13:16 13:30 13:46 Temperature Pulse Rate 62 66 63 Respiratory 19 13 16 Rate Blood Pressure 144/56 153/65 148/58 Blood Pressure [Left] O2 Sat by Pulse 99 98 99 Oximetry 08/10/19 08/10/19 08/10/19 14:00 14:16 14:48 Temperature Pulse Rate 64 65 70 Respiratory 15 16 11 L Rate Blood Pressure 148/58 148/58 148/58 Blood Pressure [Left] O2 Sat by Pulse 99 98 99 Oximetry 08/10/19 08/10/19 08/10/19 15:00 15:15 15:30 Temperature Pulse Rate 68 73 68 Respiratory 15 20 17 Rate Blood Pressure 169/68 172/68 157/58 Blood Pressure [Left] O2 Sat by Pulse 97 97 99 Oximetry 08/10/19 08/10/19 08/10/19 15:45 16:00 16:16 Temperature Pulse Rate 66 67 65 Respiratory 18 16 17 Rate Blood Pressure 151/58 145/53 157/58 Blood Pressure [Left] O2 Sat by Pulse 99 100 98 Oximetry 08/10/19 08/10/19 08/10/19 16:30 16:45 17:00 Temperature Pulse Rate 64 63 63 Respiratory 17 24 19 Rate Blood Pressure 145/62 140/63 149/55 Blood Pressure [Left] O2 Sat by Pulse 99 99 99 Oximetry 08/10/19 08/10/19 08/10/19 17:10 17:20 17:41 Temperature 98.1 F Pulse Rate 64 63 69 Respiratory 22 15 17 Rate Blood Pressure 149/55 143/53 Blood Pressure 135/74 [Left] O2 Sat by Pulse 100 100 99 Oximetry 08/10/19 08/10/19 08/10/19 17:46 17:55 17:56 Temperature 98.6 F Pulse Rate 69 Respiratory 20 Rate Blood Pressure 167/64 162/70 163/65 Blood Pressure [Left] O2 Sat by Pulse 98 Oximetry ED Medical Decision Making - Lab Data Result diagrams: 08/10/19 10:06 08/10/19 10:06 Lab Results 08/10/19 08/10/19 08/10/19 Range/Units 10:06 10:06 10:06 WBC 4.8 (4.5-11.0) K/mm3 RBC 2.88 L (3.65-5.03) M/mm3 Hgb 9.4 L (10.1-14.3) gm/dl Hct 29.1 L (30.3-42.9) % MCV 101 H (79-97) fl MCH 33 H (28-32) pg MCHC 32 (30-34) % RDW 15.8 H (13.2-15.2) % Plt Count 221 (140-440) K/mm3 Lymph % (Auto) 12.0 L (13.4-35.0) % [place] % (Auto) 8.4 H (0.0-7.3) % Eos % (Auto) 2.2 (0.0-4.3) % Baso % (Auto) 1.3 (0.0-1.8) % Lymph # 0.6 L (1.2-5.4) K/mm3 [place] # 0.4 (0.0-0.8) K/mm3 Eos # 0.1 (0.0-0.4) K/mm3 Baso # 0.1 (0.0-0.1) K/mm3 Seg Neutrophils % 76.1 H (40.0-70.0) % Seg Neutrophils # 3.7 (1.8-7.7) K/mm3 ESR (0-20) mm/Hr PT 13.5 (12.2-14.9) Sec. INR 1.06 (0.87-1.13) APTT 37.3 H (24.2-36.6) Sec. D-Dimer (0-234) ng/mlDDU Sodium (137-145) mmol/L Potassium (3.6-5.0) mmol/L Chloride (98-107) mmol/L Carbon Dioxide (22-30) mmol/L Anion Gap mmol/L BUN (7-17) mg/dL Creatinine (0.7-1.2) mg/dL Estimated GFR ml/min BUN/Creatinine Ratio % Glucose (65-100) mg/dL Calcium (8.4-10.2) mg/dL Total Bilirubin (0.1-1.2) mg/dL AST (5-40) units/L ALT (7-56) units/L Alkaline Phosphatase (35-129) units/L Troponin T 0.116 H* (0.00-0.029) ng/mL C-Reactive Protein (0.00-1.30) mg/dL NT-Pro-B Natriuret Pep (0-900) pg/mL Total Protein (6.3-8.2) g/dL Albumin (3.9-5) g/dL Albumin/Globulin Ratio % Triglycerides 103 (2-149) mg/dL Cholesterol 123 (50-199) mg/dL LDL Cholesterol Direct 40 L (50-130) mg/dL HDL Cholesterol 72 H (40-59) mg/dL Cholesterol/HDL Ratio 1.70 % 08/10/19 08/10/19 08/10/19 Range/Units 10:06 10:06 10:06 WBC (4.5-11.0) K/mm3 RBC (3.65-5.03) M/mm3 Hgb (10.1-14.3) gm/dl Hct (30.3-42.9) % MCV (79-97) fl MCH (28-32) pg MCHC (30-34) % RDW (13.2-15.2) % Plt Count (140-440) K/mm3 Lymph % (Auto) (13.4-35.0) % [place] % (Auto) (0.0-7.3) % Eos % (Auto) (0.0-4.3) % Baso % (Auto) (0.0-1.8) % Lymph # (1.2-5.4) K/mm3 [place] # (0.0-0.8) K/mm3 Eos # (0.0-0.4) K/mm3 Baso # (0.0-0.1) K/mm3 Seg Neutrophils % (40.0-70.0) % Seg Neutrophils # (1.8-7.7) K/mm3 ESR 60 (0-20) mm/Hr PT (12.2-14.9) Sec. INR (0.87-1.13) APTT (24.2-36.6) Sec. D-Dimer 472.97 H (0-234) ng/mlDDU Sodium 134 L (137-145) mmol/L Potassium 4.2 (3.6-5.0) mmol/L Chloride 94.4 L (98-107) mmol/L Carbon Dioxide 23 (22-30) mmol/L Anion Gap 21 mmol/L BUN 33 H (7-17) mg/dL Creatinine 6.1 H (0.7-1.2) mg/dL Estimated GFR 7 ml/min BUN/Creatinine Ratio 5 % Glucose 347 H (65-100) mg/dL Calcium 8.7 (8.4-10.2) mg/dL Total Bilirubin 0.40 (0.1-1.2) mg/dL AST 89 H (5-40) units/L ALT 82 H (7-56) units/L Alkaline Phosphatase 125 (35-129) units/L Troponin T (0.00-0.029) ng/mL C-Reactive Protein (0.00-1.30) mg/dL NT-Pro-B Natriuret Pep (0-900) pg/mL Total Protein 7.5 (6.3-8.2) g/dL Albumin 3.9 (3.9-5) g/dL Albumin/Globulin Ratio 1.1 % Triglycerides (2-149) mg/dL Cholesterol (50-199) mg/dL LDL Cholesterol Direct (50-130) mg/dL HDL Cholesterol (40-59) mg/dL Cholesterol/HDL Ratio % 08/10/19 08/10/19 08/10/19 Range/Units 10:06 10:06 13:27 WBC (4.5-11.0) K/mm3 RBC (3.65-5.03) M/mm3 Hgb (10.1-14.3) gm/dl Hct (30.3-42.9) % MCV (79-97) fl MCH (28-32) pg MCHC (30-34) % RDW (13.2-15.2) % Plt Count (140-440) K/mm3 Lymph % (Auto) (13.4-35.0) % [place] % (Auto) (0.0-7.3) % Eos % (Auto) (0.0-4.3) % Baso % (Auto) (0.0-1.8) % Lymph # (1.2-5.4) K/mm3 [place] # (0.0-0.8) K/mm3 Eos # (0.0-0.4) K/mm3 Baso # (0.0-0.1) K/mm3 Seg Neutrophils % (40.0-70.0) % Seg Neutrophils # (1.8-7.7) K/mm3 ESR (0-20) mm/Hr PT (12.2-14.9) Sec. INR (0.87-1.13) APTT (24.2-36.6) Sec. D-Dimer (0-234) ng/mlDDU Sodium (137-145) mmol/L Potassium (3.6-5.0) mmol/L Chloride (98-107) mmol/L Carbon Dioxide (22-30) mmol/L Anion Gap mmol/L BUN (7-17) mg/dL Creatinine (0.7-1.2) mg/dL Estimated GFR ml/min BUN/Creatinine Ratio % Glucose (65-100) mg/dL Calcium (8.4-10.2) mg/dL Total Bilirubin (0.1-1.2) mg/dL AST (5-40) units/L ALT (7-56) units/L Alkaline Phosphatase (35-129) units/L Troponin T 0.115 H* (0.00-0.029) ng/mL C-Reactive Protein 1.50 H (0.00-1.30) mg/dL NT-Pro-B Natriuret Pep 46215 H (0-900) pg/mL Total Protein (6.3-8.2) g/dL Albumin (3.9-5) g/dL Albumin/Globulin Ratio % Triglycerides (2-149) mg/dL Cholesterol (50-199) mg/dL LDL Cholesterol Direct (50-130) mg/dL HDL Cholesterol (40-59) mg/dL Cholesterol/HDL Ratio % - Radiology Data Radiology results: report reviewed Chest x-ray shows mild volume overload. CT head is without acute findings. VQ scan is low probability for PE. - Medical Decision Making Patient here for syncopal episodes today. Hypoxia noted at her consulting sme's office with a pulse ox of 91%. CT head without acute findings. VQ scan shows low PE probability. Chest x-ray shows mild volume overload. Troponin elevated. Discussed patient with Dr. Pickard to be admitted to hospital. Critical care attestation.: If time is entered above; I have spent that time in minutes in the direct care of this critically ill patient, excluding procedure time. ED Disposition Clinical Impression: Syncope and collapse, Elevated troponin Disposition: DC- OP ADMIT IP TO THIS HOSP Is pt being admited?: Yes Condition: Stable
[2019-08-10 10:33] LABS: Basophils # (Auto) 0.1 K/mm3 (0.0-0.1); Basophils % (Auto) 1.3 % (0.0-1.8); Eosinophils # (Auto) 0.1 K/mm3 (0.0-0.4); Eosinophils % (Auto) 2.2 % (0.0-4.3); Hematocrit 29.1 % (30.3-42.9); Hemoglobin 9.4 gm/dl (10.1-14.3); Lymphocytes # (Auto) 0.6 K/mm3 (1.2-5.4); Mean Corpuscular HGB Conc 32 % (30-34); Mean Corpuscular Volume 101 fl (79-97); Monocytes # (Auto) 0.4 K/mm3 (0.0-0.8); Monocytes % (Auto) 8.4 % (0.0-7.3); Platelet Count 221 K/mm3 (140-440); Red Blood Count 2.88 M/mm3 (3.65-5.03); Red Cell Distribution Width 15.8 % (13.2-15.2)
[2019-08-10 10:37] LABS: INR 1.06 (0.87-1.13)
[2019-08-10 10:38] LABS: Partial Thromboplastin Time 37.3 Sec. (24.2-36.6)
[2019-08-10 10:48] LABS: Albumin 3.9 g/dL (3.9-5); Calcium 8.7 mg/dL (8.4-10.2)
--- NOTE | 2019-08-10 11:00 | XRay Report ---
CHEST 1 VIEW INDICATION: Chest Pain. COMPARISON: 07/21/2019 FINDINGS: Support devices: Right IJ permacath has been removed Heart: Stable mild cardiomegaly Lungs/Pleura: Relatively stable mild central pulmonary venous congestion. Trace right pleural effusio n is suspected. No consolidation or pneumothorax. Additional findings: None. IMPRESSION: Mild volume overload Signer Name: Asim Vogt Jr, MD Signed: 08/10/2019 10:56 AM Workstation Name: [id number]
[2019-08-10 11:23] LABS: Chol/HDL Ratio 1.7 %
--- NOTE | 2019-08-10 12:03 | Cat Scan Report ---
CT HEAD WITHOUT CONTRAST INDICATION / CLINICAL INFORMATION: headache, weakness, syncope. TECHNIQUE: Axial imaging performed from the skull apex through the skull base without the use of cont rast. Sagittal and coronal reformatted images. All CT scans at this location are performed using CT dose reduction for ALARA by means of automated exposure control. COMPARISON: None available. FINDINGS: CEREBRAL PARENCHYMA: No significant abnormality. No acute territorial infarct. Mild chronic microvasc ular ischemic disease is noted in the white matter which appears appropriate for this patient's age. No chronic infarct. HEMORRHAGE: None. EXTRA-AXIAL SPACES: Normal in size and morphology for the patient's age. VENTRICULAR SYSTEM: Normal in size and morphology for the patient's age. MIDLINE SHIFT OR HERNIATION: None. CEREBELLUM / BRAINSTEM: No significant abnormality. CALVARIUM: No significant abnormality. ORBITS: Normal as visualized. PARANASAL SINUSES / MASTOID AIR CELLS: Normal as visualized. SOFT TISSUES of HEAD: No significant abnormality. ADDITIONAL FINDINGS: None. IMPRESSION: Unremarkable CT brain for age. Mild nonspecific chronic white matter changes. Signer Name: Asim Vogt Jr, MD Signed: 08/10/2019 11:58 AM Workstation Name: [id number]
--- NOTE | 2019-08-10 14:41 | Event Note ---
Date: 08/10/19 Please refer to today's cardiology office note. Syncope Dilated Cardiomyopathy echocardiogram done 07/20/19 reveals severe pulmonary hypertension, PASP 81 mmHG. In addition, there is a decreased left ventricular systolic function, ejection fraction 35-40%. ESRD on HD (M/W/F) Hypertension Diabetes Recommendations: Sodium/Fluid restriction. Rule out PE with a ventilation perfusion scan. Medical therapy for dilated cardiomyopathy as tolerated. Ischemic cardiac evaluation with a right and left cardiac cath for tomorrow morning and undergo her routine hemodialysis after the cardiac cath.
--- NOTE | 2019-08-10 15:07 | Nuclear Medicine Report ---
NUCLEAR MEDICINE VENTILATION/PERFUSION LUNG SCAN INDICATION / CLINICAL INFORMATION: syncope, + dimer. Shortness of breath and chest pain TECHNIQUE: 21 mCi of Xe-133 were given by inhalation. 5.1 mCi of Tc-99m MAA were given by IV. COMPARISON: Chest radiograph dated 08/10/2019. FINDINGS: VENTILATION: No significant ventilation defects. PERFUSION: No significant perfusion defects. ADDITIONAL FINDINGS: None. IMPRESSION: Low probability for pulmonary embolism. Signer Name: Asim Vogt Jr, MD Signed: 08/10/2019 3:03 PM Workstation Name: [id number]
--- NOTE | 2019-08-11 00:45 | History and Physical Report ---
History of Present Illness Date of examination: 08/10/19 Date of admission: 08/10/19 14:22 Chief complaint: Syncopal episode at her stem cutter's office this morning History of present illness: 74-year-old female with history of end-stage renal disease on dialysis, hypertension and diabetes apparently passed out at the stem cutter's office waiting for appointment. Patient follows with [facility]. Patient passed out for a few seconds. caught her while she was falling preventing head injury. No chest pain. Some shortness of breath present. No diaphoresis. No no fever or chills. Past Medical History Hypertension: Yes Diabetes: Yes Renal Disease: Yes Surgical History Additional Surgical History: x2. Vas cath. graft to left arm. left eye. goiter removed Social History Smoking Status: Never Smoker Substance Use Type: Alcohol Family history Htn - Medications Home Medications: Home Medications Medication Instructions Recorded Confirmed Last Taken Type Carvedilol [Coreg] 25 mg PO BID 01/25/19 07/20/19 07/19/19 History Furosemide [Lasix TAB] 40 mg PO QDAY 01/25/19 07/20/19 07/19/19 History Insulin Glargine,Hum.rec.anlog 14 units SQ DAILY 01/25/19 07/20/19 07/19/19 History [Lantus] Levothyroxine [Synthroid] 75 mcg PO QAM 01/25/19 07/20/19 07/19/19 History Rosuvastatin Calcium 5 mg PO DAILY 01/25/19 07/20/19 07/19/19 History glipiZIDE [Glipizide] 5 mg PO DAILY 01/25/19 07/20/19 07/19/19 History Calcitriol [Rocaltrol] 0.5 mcg PO QDAY #30 capsule 01/28/19 07/20/19 Unknown Rx Calcium Carbonate [Tums 500MG CHEW] 1,000 mg PO TID 30 Days tablet 01/28/19 07/20/19 Unknown Rx NIFEdipine XL [Procardia Xl] 60 mg PO Q12HR #60 tablet 01/28/19 07/20/19 07/19/19 Rx Vitamin D3 1,000 UNIT TAB 2,000 units PO DAILY 07/20/19 07/20/19 Unknown History Lisinopril [Zestril TAB] 40 mg PO QDAY #30 tablet 07/21/19 Unknown Rx Review of Systems ROS: Stated complaint: SYNCOPE Other details as noted in HPI Constitutional: denies: chills, fever Eyes: denies: eye pain, vision change ENT: denies: ear pain, throat pain Respiratory: denies: cough, shortness of breath, SOB with exertion, SOB at rest, wheezing Cardiovascular: denies: chest pain, palpitations Endocrine: no symptoms reported Gastrointestinal: denies: abdominal pain, nausea, diarrhea Genitourinary: denies: urgency, dysuria, discharge Musculoskeletal: denies: back pain, joint swelling, arthralgia Skin: denies: rash, lesions Neurological: weakness. denies: numbness, paresthesias, abnormal gait, vertigo Psychiatric: denies: anxiety, depression Hematological/Lymphatic: denies: easy bleeding, easy bruising Medications and Allergies Allergies Allergy/AdvReac Type Severity Reaction Status Date / Time No Known Allergies Allergy Verified 07/19/19 22:48 Home Medications Medication Instructions Recorded Confirmed Last Taken Type Carvedilol [Coreg] 25 mg PO BID 01/25/19 08/10/19 08/10/19 08:00 History Furosemide [Lasix TAB] 40 mg PO QDAY 01/25/19 08/10/19 07/19/19 History Insulin Glargine,Hum.rec.anlog 14 units SQ DAILY 01/25/19 08/10/19 08/10/19 08:00 History [Lantus] 14 units Levothyroxine [Synthroid] 75 mcg PO QAM 01/25/19 08/10/19 08/10/19 08:00 History Rosuvastatin Calcium 5 mg PO DAILY 01/25/19 08/10/19 08/09/19 22:00 History glipiZIDE [Glipizide] 5 mg PO DAILY 01/25/19 08/10/19 08/10/19 08:00 History Calcitriol [Rocaltrol] 0.5 mcg PO QDAY #30 capsule 01/28/19 08/10/19 Unknown Rx Calcium Carbonate [Tums 500MG CHEW] 1,000 mg PO TID 30 Days tablet 01/28/19 08/10/19 08/10/19 08:00 Rx NIFEdipine XL [Procardia Xl] 60 mg PO Q12HR #60 tablet 04/09/0708/10/19 08/10/19 Rx Vitamin D3 1,000 UNIT TAB 2,000 units PO DAILY 07/20/19 08/10/19 Unknown History Lisinopril [Zestril TAB] 40 mg PO QDAY #30 tablet 07/21/19 08/10/19 Unknown Rx Exam - Constitutional Vitals: Temp Pulse Resp BP Pulse Ox 98.5 F 74 20 179/70 93 08/10/19 20:16 08/10/19 22:00 08/10/19 20:16 08/10/19 20:16 08/10/19 20:16 General appearance: Present: no acute distress, well-nourished - EENT Eyes: Present: PERRL ENT: hearing intact, clear oral mucosa - Neck Neck: Present: supple, normal ROM - Respiratory Respiratory effort: normal Respiratory: bilateral: CTA - Cardiovascular Heart rate: 78 Heart Sounds: Present: S1 & S2. Absent: rub, click - Extremities Extremities: pulses symmetrical, No edema Peripheral Pulses: within normal limits - Abdominal General gastrointestinal: Present: soft, non-tender, non-distended, normal bowel sounds Female genitourinary: Present: normal - Rectal Rectal Exam: deferred - Integumentary Integumentary: Present: clear, warm, dry - Musculoskeletal Musculoskeletal: gait normal, strength equal bilaterally - Psychiatric Psychiatric: appropriate mood/affect, intact judgment & insight - Neurologic Neurologic: CNII-XII intact, moves all extremities - Allied Health Allied health notes reviewed: nursing, case management Results - Labs CBC & Chem 7: 08/10/19 10:06 08/10/19 10:06 Labs: Laboratory Last Values WBC 4.8 K/mm3 (4.5-11.0) 08/10/19 10:06 RBC 2.88 M/mm3 (3.65-5.03) L 08/10/19 10:06 Hgb 9.4 gm/dl (10.1-14.3) L 08/10/19 10:06 Hct 29.1 % (30.3-42.9) L 08/10/19 10:06 MCV 101 fl (79-97) H 08/10/19 10:06 MCH 33 pg (28-32) H 08/10/19 10:06 MCHC 32 % (30-34) 08/10/19 10:06 RDW 15.8 % (13.2-15.2) H 08/10/19 10:06 Plt Count 221 K/mm3 (140-440) 08/10/19 10:06 Lymph % (Auto) 12.0 % (13.4-35.0) L 08/10/19 10:06 Nye % (Auto) 8.4 % (0.0-7.3) H 08/10/19 10:06 Eos % (Auto) 2.2 % (0.0-4.3) 08/10/19 10:06 Baso % (Auto) 1.3 % (0.0-1.8) 08/10/19 10:06 Lymph # 0.6 K/mm3 (1.2-5.4) L 08/10/19 10:06 Nye # 0.4 K/mm3 (0.0-0.8) 08/10/19 10:06 Eos # 0.1 K/mm3 (0.0-0.4) 08/10/19 10:06 Baso # 0.1 K/mm3 (0.0-0.1) 08/10/19 10:06 Seg Neutrophils % 76.1 % (40.0-70.0) H 08/10/19 10:06 Seg Neutrophils # 3.7 K/mm3 (1.8-7.7) 08/10/19 10:06 ESR 60 mm/Hr (0-20) 08/10/19 10:06 PT 13.5 Sec. (12.2-14.9) 08/10/19 10:06 INR 1.06 (0.87-1.13) 08/10/19 10:06 APTT 37.3 Sec. (24.2-36.6) H 08/10/19 10:06 D-Dimer 472.97 ng/mlDDU (0-234) H 08/10/19 10:06 Sodium 134 mmol/L (137-145) L 08/10/19 10:06 Potassium 4.2 mmol/L (3.6-5.0) 08/10/19 10:06 Chloride 94.4 mmol/L (98-107) L 08/10/19 10:06 Carbon Dioxide 23 mmol/L (22-30) 08/10/19 10:06 Anion Gap 21 mmol/L 08/10/19 10:06 BUN 33 mg/dL (7-17) H 08/10/19 10:06 Creatinine 6.1 mg/dL (0.7-1.2) H 08/10/19 10:06 Estimated GFR 7 ml/min 08/10/19 10:06 BUN/Creatinine Ratio 5 % 08/10/19 10:06 Glucose 347 mg/dL (65-100) H 08/10/19 10:06 POC Glucose 219 (70-105) H 08/10/19 22:13 Calcium 8.7 mg/dL (8.4-10.2) 08/10/19 10:06 Total Bilirubin 0.40 mg/dL (0.1-1.2) 08/10/19 10:06 AST 89 units/L (5-40) H 08/10/19 10:06 ALT 82 units/L (7-56) H 08/10/19 10:06 Alkaline Phosphatase 125 units/L (35-129) 08/10/19 10:06 Troponin T 0.113 ng/mL (0.00-0.029) H* 08/10/19 15:25 C-Reactive Protein 1.50 mg/dL (0.00-1.30) H 08/10/19 10:06 NT-Pro-B Natriuret Pep 80063 pg/mL (0-900) H 08/10/19 10:06 Total Protein 7.5 g/dL (6.3-8.2) 08/10/19 10:06 Albumin 3.9 g/dL (3.9-5) 08/10/19 10:06 Albumin/Globulin Ratio 1.1 % 08/10/19 10:06 Triglycerides 103 mg/dL (2-149) 08/10/19 10:06 Cholesterol 123 mg/dL (50-199) 08/10/19 10:06 LDL Cholesterol Direct 40 mg/dL (50-130) L 08/10/19 10:06 HDL Cholesterol 72 mg/dL (40-59) H 08/10/19 10:06 Cholesterol/HDL Ratio 1.70 % 08/10/19 10:06 Short CBC 08/10/19 Range/Units 10:06 WBC 4.8 (4.5-11.0) K/mm3 Hgb 9.4 L (10.1-14.3) gm/dl Hct 29.1 L (30.3-42.9) % Plt Count 221 (140-440) K/mm3 BMP 08/10/19 10:06 Sodium 134 L Potassium 4.2 Chloride 94.4 L Carbon Dioxide 23 BUN 33 H Creatinine 6.1 H Glucose 347 H Calcium 8.7 Cardiac Enzymes 08/10/19 08/10/19 08/10/19 Range/Units 10:06 13:27 15:25 Troponin T 0.116 H* 0.115 H* 0.113 H* (0.00-0.029) ng/mL Liver Function 08/10/19 Range/Units 10:06 Total Bilirubin 0.40 (0.1-1.2) mg/dL AST 89 H (5-40) units/L ALT 82 H (7-56) units/L Alkaline Phosphatase 125 (35-129) units/L Albumin 3.9 (3.9-5) g/dL - Imaging and Cardiology EKG: report reviewed Chest x-ray: report reviewed (mild volume overload) CT Scan - head: report reviewed (no acute findings) Imaging and Cardiology: Nuclear perfusion scan IMPRESSION: Low probability for pulmonary embolism. Assessment and Plan Advance Directives: Yes (full code) VTE prophylaxis?: Chemical Plan of care discussed with patient/family: Yes - Patient Problems (1) Syncope and collapse Current Visit: Yes Status: Acute Plan to address problem: Probably volume depletion versus vasovagal Patient has dilated cardiomyopathy Has ejection fraction of 35-40% Patient did get client and left heart catheterization tomorrow and assessment of the severity of pulmonary hypertension (2) ESRD needing dialysis Current Visit: No Status: Chronic Plan to address problem: Continue hemodialysis (3) HTN (hypertension) Current Visit: No Status: Chronic Qualifiers: Hypertension type: essential hypertension Qualified Code(s): I10 - Essential (primary) hypertension Plan to address problem: Continue antihypertensives (4) Type 2 diabetes mellitus Current Visit: Yes Status: Chronic Qualifiers: Diabetes mellitus nursing home insulin use: unspecified nursing home insulin use status Plan to address problem: Coverage for now \Check hemoglobin A1c (5) DVT prophylaxis Current Visit: No Status: Acute Plan to address problem: Heparin 5000 every 12 and GI prophylaxis
[2019-08-11] MEDS ORDERED: HYDROmorphone 1 MG/1 ML INJ IV PRN (00:53)
[2019-08-11] MEDS ORDERED: METOCLOPRAMIDE 10 MG/2 ML INJ IV PRN (00:53)
[2019-08-11] MEDS ORDERED: ONDANSETRON 4 MG/2 ML INJ IV PRN (00:53)
[2019-08-11] MEDS ORDERED: oxyCODONE /ACETAMINOPHEN 5-325MG TAB PO PRN (00:53)
[2019-08-11] MEDS ORDERED: ACETAMINOPHEN 325 MG TAB PO PRN (00:53)
[2019-08-11] MEDS ORDERED: LEVOTHYROXINE 75 MCG TAB PO SCH (06:00)
[2019-08-11 06:06] LABS: INR 0.99 (0.87-1.13)
[2019-08-11 06:40] LABS: Calcium 8.5 mg/dL (8.4-10.2)
[2019-08-11] MEDS: INSULIN LISPRO 100 UNIT/ML SUB-Q SCH ×3 (07:17→16:14)
[2019-08-11] MEDS ORDERED: glipiZIDE 5 MG TAB PO SCH (08:00)
[2019-08-11] MEDS ORDERED: ASPIRIN 325 MG TAB PO NR (08:12)
[2019-08-11] MEDS ORDERED: HEPARIN/NS 5000 UNIT/500ML 1,000 ML IR ONE (08:34)
[2019-08-11] MEDS ORDERED: fentaNYL 100 MCG/2 ML INJ ONE (08:35)
[2019-08-11] MEDS ORDERED: HEPARIN 10,000 UNITS/10 ML VIAL ONE (08:35)
[2019-08-11] MEDS ORDERED: MIDAZOLAM 2 MG/2 ML INJ ONE (08:35)
[2019-08-11] MEDS ORDERED: NITROGLYCERIN SYRINGE 0 ML ONE (08:36)
[2019-08-11] MEDS ORDERED: SODIUM CHLORIDE 0.9% 500 ML 500 ML ONE (08:36)
[2019-08-11] MEDS: LIDOCAINE (2%) 20 MG/1 ML VIAL 20 ML MDV INFILTRATI ONE ×2 (09:19→09:22)
[2019-08-11] MEDS: CARVEDILOL 25 MG TAB PO SCH ×4 (09:29→18:26)
[2019-08-11] MEDS: CALCIUM CARBONATE 500 MG TAB CHEW PO SCH ×3 (09:29→20:27)
[2019-08-11] MEDS ORDERED: CALCITRIOL 0.5 MCG CAP PO SCH (10:00)
[2019-08-11] MEDS ORDERED: ROSUVASTATIN CALCIUM 5 MG PO SCH (10:00)
[2019-08-11] MEDS ORDERED: CHOLECALCIFEROL (VIT D3) 1000 UNIT TAB PO SCH (10:00)
[2019-08-11] MEDS ORDERED: HEPARIN 5,000 UNIT/1 ML VIAL SUB-Q SCH (10:00)
[2019-08-11] MEDS ORDERED: INSULIN GLARGINE 100 UNITS/ML SUB-Q SCH (10:00)
[2019-08-11] MEDS ORDERED: FAMOTIDINE 10 MG TAB PO SCH (10:00)
[2019-08-11] MEDS ORDERED: LISINOPRIL 40 MG TAB PO SCH (10:00)
[2019-08-11] MEDS ORDERED: FUROSEMIDE 40 MG TAB PO SCH (10:00)
--- NOTE | 2019-08-11 10:00 | Progress Note ---
Assessment and Plan Syncope (multiple episodes in the past preceded by feeling of weakness) Negative VQ scan NAP on CT brain No arrhythmias on tele Dilated Cardiomyopathy echocardiogram done 07/20/19 reveals severe pulmonary hypertension, PASP 81 mmHG. In addition, there is a decreased left ventricular systolic function, ejection fraction 35-40%. Cath showing mild to moderate diffuse non-obstructive coronary artery disease, LVEF 35-40% LBBB ESRD on HD (M/W/F) Hypertension Diabetes Recommendations: Guideline directed medical therapy with beta dana and ACEi for non-ischemic cardiomyopathy Outpatient cardiac follow-up No further cardiac work-up is needed Subjective Date of service: 08/11/19 Principal diagnosis: Syncope Interval history: Patient underwent a cardiac cath today without complications Objective Vital Signs Temp Pulse Resp BP BP Pulse Ox 08/11/19 07:05 98.0 F 67 18 157/68 93 08/11/19 01:45 98.0 F 59 L 20 108/33 96 08/11/19 00:24 20 93 08/10/19 22:00 74 08/10/19 20:16 98.5 F 74 20 179/70 93 08/10/19 17:56 163/65 08/10/19 17:55 162/70 08/10/19 17:46 98.6 F 69 20 167/64 98 08/10/19 17:41 98.1 F 69 17 135/74 99 08/10/19 17:20 63 15 143/53 100 08/10/19 17:10 64 22 149/55 100 08/10/19 17:00 63 19 149/55 99 08/10/19 16:45 63 24 140/63 99 08/10/19 16:30 64 17 145/62 99 08/10/19 16:16 65 17 157/58 98 08/10/19 16:00 67 16 145/53 100 08/10/19 15:45 66 18 151/58 99 08/10/19 15:30 68 17 157/58 99 08/10/19 15:15 73 20 172/68 97 08/10/19 15:00 68 15 169/68 97 08/10/19 14:48 70 11 L 148/58 99 08/10/19 14:16 65 16 148/58 98 08/10/19 14:00 64 15 148/58 99 08/10/19 13:46 63 16 148/58 99 08/10/19 13:30 66 13 153/65 98 08/10/19 13:16 62 19 144/56 99 08/10/19 13:00 64 21 150/64 96 08/10/19 12:46 62 16 143/56 98 08/10/19 12:30 60 12 137/55 99 08/10/19 12:15 61 17 142/56 98 08/10/19 12:00 61 20 97 08/10/19 11:46 59 L 14 99 08/10/19 11:31 97 08/10/19 10:00 97.8 F 18 92 - Physical Examination HEENT: Positive: PERRL Neck: Positive: neck supple Cardiac: Positive: Reg Rate and Rhythm Lungs: Positive: Normal Exam - Labs and Meds Cardiac Enzymes 08/10/19 Range/Units 10:06 AST 89 H (5-40) units/L Coagulation 08/10/19 08/11/19 Range/Units 10:06 05:20 PT 13.5 12.8 (12.2-14.9) Sec. INR 1.06 0.99 (0.87-1.13) APTT 37.3 H (24.2-36.6) Sec. Lipids 08/10/19 Range/Units 10:06 Triglycerides 103 (2-149) mg/dL Cholesterol 123 (50-199) mg/dL HDL Cholesterol 72 H (40-59) mg/dL Cholesterol/HDL Ratio 1.70 % CBC 08/10/19 Range/Units 10:06 WBC 4.8 (4.5-11.0) K/mm3 RBC 2.88 L (3.65-5.03) M/mm3 Hgb 9.4 L (10.1-14.3) gm/dl Hct 29.1 L (30.3-42.9) % Plt Count 221 (140-440) K/mm3 Lymph # 0.6 L (1.2-5.4) K/mm3 Bradford # 0.4 (0.0-0.8) K/mm3 Eos # 0.1 (0.0-0.4) K/mm3 Baso # 0.1 (0.0-0.1) K/mm3 Comprehensive Metabolic Panel 08/10/19 08/11/19 Range/Units 10:06 05:20 Sodium 134 L 137 (137-145) mmol/L Potassium 4.2 4.1 (3.6-5.0) mmol/L Chloride 94.4 L 95.6 L (98-107) mmol/L Carbon Dioxide 23 22 (22-30) mmol/L BUN 33 H 47 H (7-17) mg/dL Creatinine 6.1 H 8.2 H (0.7-1.2) mg/dL Glucose 347 H 108 H (65-100) mg/dL Calcium 8.7 8.5 (8.4-10.2) mg/dL AST 89 H (5-40) units/L ALT 82 H (7-56) units/L Alkaline Phosphatase 125 (35-129) units/L Total Protein 7.5 (6.3-8.2) g/dL Albumin 3.9 (3.9-5) g/dL - Imaging and Cardiology EKG: report reviewed
--- NOTE | 2019-08-11 10:28 | Cardiac Catherization Report ---
LEFT AND RIGHT HEART CATHETERIZATION INDICATIONS: Syncope, dilated cardiomyopathy, pulmonary hypertension. ORDERING PHYSICIAN: Kathy Fisher M.D. PROCEDURES PERFORMED: 1. Selective left and right coronary angiography. 2. Left ventriculography. 3. Right heart catheterization with hemodynamic measurement and oxygen saturation run. DESCRIPTION OF PROCEDURE: After obtaining the consent, the patient was draped using sterile technique. 2% lidocaine was injected into the right groin. Using a micropuncture needle, a 5-Comoran vascular sheath was inserted into the right femoral artery and a 7-Comoran vascular sheath was inserted into the right femoral vein. A 7-Comoran Hancock-Julissa catheter was used to measure right-sided hemodynamics and perform oxygen saturation run. A 5-Comoran JL4 catheter was used to selectively engage left coronary artery. A 5-Comoran JR4 catheter was used to selectively engage the right coronary artery. A 5-Comoran JR4 catheter was used to hand inject the left ventriculogram. No complications occurred during the procedure. Hemostasis was achieved at the end of the procedure using a 5-Comoran MynxGrip closure device. ESTIMATED BLOOD LOSS: Minimal. SPECIMEN REMOVED: None. SEDATION ADMINISTERED: 1 mg of IV Versed and 50 mcg of IV fentanyl. PHYSICIAN-PATIENT [id number] SEDATION START TIME: 9:18 a.m. PHYSICIAN-PATIENT [id number] SEDATION STOP TIME: 9:43 a.m. TOTAL SEDATION TIME: 35 minutes. FINDINGS: HEMODYNAMICS: 1. Mean pulmonary capillary wedge pressure was 25 mmHg. 2. Pulmonary artery systolic pressure 72 mmHg, pulmonary artery diastolic pressure 22 mmHg and mean pulmonary artery pressure was 46 mmHg. 3. Right ventricular systolic pressure was 71 mmHg with right ventricular end-diastolic pressure of 25 mmHg. 4. Mean right arterial pressure 16 mmHg. 5. Aortic pressure is 164/66. LV systolic pressure is 167 mmHg. LV end-diastolic pressure 27 mmHg. 6. Aortic saturation 80% and PA saturation 52%. 7. Fernando cardiac output 5.83 liters per minute and a Fernando cardiac index of 3.71 liters per minute per meter square. CARDIAC STRUCTURES: The left ventricular cavity is mildly dilated. There is moderate global left ventricular hypokinesis. The left ventricular ejection fraction is estimated between 35% and 40%. CORONARY ANATOMY: 1. This is a right dominant circulation. 2. The left main has aoru-ua-pehhrnrl diffuse disease. 3. The LAD has frrq-el-lglwmayd diffuse disease. There is a 70% ostial stenosis of the second diagonal artery. 4. The left circumflex artery has mlnz-hj-cykknnsf diffuse disease. 5. The right coronary artery has grij-tb-voibmbdo diffuse disease. IMPRESSION: 1. Lllp-zy-jeyyourb diffuse nonobstructive coronary artery disease. 2. 70% ostial second diagonal artery stenosis, will be recommended for medical therapy. 3. Moderate global left ventricular hypokinesis with an ejection fraction estimated between 35% and 40%. 4. Ujmchuxk-fk-acyezj pulmonary hypertension with evidence of elevated left and right sided filling pressures. 5. Preserved cardiac output and cardiac index. RECOMMENDATION: Continue guideline directed medical therapy, fluid management through hemodialysis and follow up in the office. [facility]# [id number] MADELIN/GALA
[2019-08-11] MEDS: ASPIRIN EC 81 MG TAB PO SCH ×2 (10:57→11:03)
[2019-08-11] MEDS ORDERED: NIFEdipine XL 60 MG TAB PO SCH ×2 (12:00→13:00)
[2019-08-11] MEDS ORDERED: SODIUM CHLORIDE 0.9% 100 ML IV PRN (12:48)
--- NOTE | 2019-08-11 14:37 | Discharge Summary ---
Providers - Providers Date of Admission: 08/10/19 14:22 Date of discharge: 08/11/19 Attending physician: MABLE MORROW 08/11/19 00:53 Consult to Physician [CONS] Routine Comment: Consulting Provider: CHELSEA DRAPER Physician Instructions: Reason For Exam: syncope 08/11/19 11:33 Consult to Physician [CONS] Routine Comment: RADHA Consulting Provider: JOSEP WILKINS Physician Instructions: CONSULT WAS CALLED TO /JEFFERSON Reason For Exam: ESRD on dialysis Primary care physician: SHYAM RODRIGUES Hospitalization Condition: Fair Disposition: DC-01 TO HOME OR SELFCARE Exam - Constitutional Vitals: Temp Pulse Resp BP Pulse Ox 97.9 F 64 18 140/50 99 08/11/19 13:39 08/11/19 13:39 08/11/19 13:39 08/11/19 13:39 08/11/19 13:39 Plan Activity: advance as tolerated Diet: low fat, low cholesterol, low salt, renal Plan of Treatment: 1.Follow up with PCP in 1 week 2.Follow up with Dr. Oquendo in 3-5 days. 3.Continue dialysis as scheduled Follow up with: PRIMARY CAREMD [Referring] - 3-5 Days
--- NOTE | 2019-08-11 16:19 | Consultation ---
History of Present Illness - History of Present Illness 74 year old lady with medical history significant for HTN, CAD, ESRD on hemod ialysis via a Left arm AVF on Friday, Friday and Friday, presenting with complaints of syncopal event at her doctors office. She did have a premonition of the event and reports she was told she rapidly gained consciousness. She had a cardiac catheterization procedure today . She has been compliant with her dialysis treatment She denies any exertional dypsnea , orthopnea , PND. Patient denies any associated fevers or chills.Denies any lower extremity edema. Medications and Allergies Allergies Allergy/AdvReac Type Severity Reaction Status Date / Time No Known Allergies Allergy Verified 07/19/19 22:48 Home Medications Medication Instructions Recorded Confirmed Last Taken Type Carvedilol [Coreg] 25 mg PO BID 01/25/19 08/10/19 08/10/19 08:00 History Furosemide [Lasix TAB] 40 mg PO QDAY 01/25/19 08/10/19 07/19/19 History Insulin Glargine,Hum.rec.anlog 14 units SQ DAILY 01/25/19 08/10/19 08/10/19 08:00 History [Lantus] 14 units Levothyroxine [Synthroid] 75 mcg PO QAM 01/25/19 08/10/19 08/10/19 08:00 History Rosuvastatin Calcium 5 mg PO DAILY 01/25/19 08/10/19 08/09/19 22:00 History glipiZIDE [Glipizide] 5 mg PO DAILY 01/25/19 08/10/19 08/10/19 08:00 History Calcitriol [Rocaltrol] 0.5 mcg PO QDAY #30 capsule 01/28/19 08/10/19 Unknown Rx Calcium Carbonate [Tums 500MG CHEW] 1,000 mg PO TID 30 Days tablet 01/28/19 08/10/19 08/10/19 08:00 Rx NIFEdipine XL [Procardia Xl] 60 mg PO Q12HR #60 tablet 01/28/19 08/10/19 08/10/19 Rx Vitamin D3 1,000 UNIT TAB 2,000 units PO DAILY 07/20/19 08/10/19 Unknown History Lisinopril [Zestril TAB] 40 mg PO QDAY #30 tablet 07/21/19 08/10/19 Unknown Rx Active Meds: Active Medications Acetaminophen (Tylenol) 650 mg PO Q4H PRN PRN Reason: Pain MILD(1-3)/Fever >100.5/DUNCAN Aspirin (Halfprin Ec) 81 mg PO QDAY [facility] Last Admin: 08/11/19 11:03 Dose: Not Given Documented by: Atorvastatin Calcium (Lipitor) 10 mg PO QHS [facility] Calcitriol (Rocaltrol) 0.5 mcg PO QDAY [facility] Last Admin: 08/11/19 10:58 Dose: 0.5 mcg Documented by: Calcium Carbonate/Glycine (Tums) 1,000 mg PO TID [facility] Last Admin: 08/11/19 14:14 Dose: 1,000 mg Documented by: Carvedilol (Coreg) 25 mg PO BID@0800,1700 [facility] Last Admin: 08/11/19 16:13 Dose: Not Given Documented by: Cholecalciferol (Vitamin D3) 2,000 unit PO DAILY [facility] Last Admin: 08/11/19 10:57 Dose: 2,000 unit Documented by: Famotidine (Pepcid) 10 mg PO BID [facility] Last Admin: 08/11/19 10:57 Dose: 10 mg Documented by: Furosemide (Lasix) 40 mg PO QDAY [facility] Last Admin: 08/11/19 10:57 Dose: 40 mg Documented by: Glipizide (Glucotrol) 5 mg PO QDDIAB [facility] Last Admin: 08/11/19 09:29 Dose: Not Given Documented by: Heparin Sodium (Porcine) (Heparin) 5,000 unit SUB-Q Q12HR [facility] Last Admin: 08/11/19 11:01 Dose: 5,000 unit Documented by: Hydromorphone HCl (Dilaudid) 0.5 mg IV Q3H PRN PRN Reason: Pain , Severe (7-10) Sodium Chloride (Nacl 0.9%) 100 mls @ 999 mls/hr IV SANTOS PRN PRN Reason: Hypotension Insulin Glargine (Lantus) 14 units SUB-Q DAILY [facility] Last Admin: 08/11/19 11:10 Dose: 14 units Documented by: Insulin Human Lispro (Humalog) 0 unit SUB-Q ACHS [facility]; Protocol Last Admin: 08/11/19 16:14 Dose: Not Given Documented by: Levothyroxine Sodium (Synthroid) 75 mcg PO QAM@0600 [facility] Last Admin: 08/11/19 05:39 Dose: 75 mcg Documented by: Lisinopril (Zestril) 40 mg PO QDAY [facility] Last Admin: 08/11/19 10:57 Dose: 40 mg Documented by: Metoclopramide HCl (Reglan) 5 mg IV Q6H PRN PRN Reason: Nausea And Vomiting Nifedipine (Procardia Xl) 60 mg PO BID [facility] Last Admin: 08/11/19 14:14 Dose: 60 mg Documented by: Ondansetron HCl (Zofran) 4 mg IV Q8H PRN PRN Reason: Nausea And Vomiting Oxycodone/Acetaminophen (Percocet 5/325) 1 tab PO Q6H PRN PRN Reason: Pain, Moderate (4-6) Sodium Chloride (Sodium Chloride Flush Syringe 10 Ml) 10 ml IV BID [facility] Last Admin: 08/11/19 10:59 Dose: 10 ml Documented by: Sodium Chloride (Sodium Chloride Flush Syringe 10 Ml) 10 ml IV PRN PRN PRN Reason: LINE FLUSH Review of Systems Constitutional: no weight loss, no weight gain, no fever, no chills Breasts: no deferred, no change in shape Cardiovascular: no chest pain, no orthopnea, no palpitations Respiratory: no cough, no cough with sputum Gastrointestinal: no abdominal pain, no nausea, no vomiting Genitourinary Female: no dyspareunia, no dysmenorrhea Menstruation: currently menstrual, no premenarcheal Rectal: no pain, no incontinence Integumentary: no deferred, no rash Neurological: no head injury, no transient paralysis Psychiatric: no anxiety, no memory loss Endocrine: no cold intolerance, no heat intolerance Hematologic/Lymphatic: no easy bruising, no easy bleeding Allergic/Immunologic: no urticaria, no allergic rhinitis Exam - Vital Signs Vital signs: Vital Signs Pulse Resp BP Pulse Ox 70 18 143/52 92 08/10/19 09:53 08/10/19 09:53 08/10/19 09:53 08/10/19 09:53 - General Appearance General appearance: well-developed, well-nourished EENT: ATNC, PERRL, mucous membranes moist Neck: Present: neck supple Respiratory: Clear to Ascultation Heart: regular, S1S2 Gastrointestinal: Present: normal, normoactive bowel sounds Integumentary: no rash Neurologic: no focal deficit, CN 3-12 intact Psychiatric: mood/affect appropriate Results - Lab Results 08/10/19 10:06 08/11/19 05:20 Most recent lab results Calcium 8.5 mg/dL (8.4-10.2) 08/11/19 05:20 - Image Kidney/bladder ultrasound: other (I reviewed CXR with some interstitial edema. ) Assessment and Plan - Patient Problems (1) ESRD needing dialysis Current Visit: Yes Status: Chronic Plan to address problem: ESRD on hemodialysis -access: left arm AVF - will initiate HD - continue dialysis MWF. (2) Syncope and collapse Current Visit: Yes Status: Acute Plan to address problem: Syncope and collapse - given nature of event concern for cardiac etiology - s/p cardiac cath today - cardiology follow up . (3) Type 2 diabetes mellitus Current Visit: Yes Status: Chronic Qualifiers: Diabetes mellitus jail insulin use: unspecified jail insulin use status Plan to address problem: DM type II : uncontrolled. will continue current medications Monitor fingerstick. (4) Anemia Current Visit: No Status: Acute Plan to address problem: moderate anemia : Hb: 9.4g/dl 2/2 End stage renal disease Monitor CBC.
[2019-08-11] MEDS ORDERED: SODIUM CHLORIDE*PRIMING MACHINE ONLY FOR DIALYSIS MC ONE (19:26)
[2019-08-11 21:22] VITALS: BP 162/62
== END 2019-08-11 21:00 | disposition home or self-care (01) ==
LOC: ED 09:39 → INTOOBSV 14:22 → 2B-ACE 14:22
PROVIDERS: ADMIT Internal Medicine; ATTEND Internal Medicine
DX: R55 Syncope and collapse (principal); I12.0 Hypertensive chronic kidney disease with stage 5 chronic kidney disease or end stage renal disease; N18.6 End stage renal disease; E11.22 Type 2 diabetes mellitus with diabetic chronic kidney disease; R74.8 Abnormal levels of other serum enzymes; Z98.891 History of uterine scar from previous surgery; Z79.4 Long term (current) use of insulin
CPT/HCPCS: 36415; 70450; 71045; 71275; 78582; 80048; 80053; 80061; 82962; 83036; 83880; 84484; 85025; 85379; 85610; 85652; 85730; 86140; 93005; 93010; 93460; 96372; 99284; A9540; A9558; C1760; G0378; J1644; J2250; J3010; J7030; J7040; J1815; Q9967

== ENCOUNTER 2020-07-07 07:28 | Day surgery (SDC) | payer MEDICARE ==
[2020-07-07] MEDS ORDERED: SODIUM CHLORIDE 0.9% 1000 ML 1,000 ML IV SCH (07:30)
--- NOTE | 2020-07-07 09:35 | Anesthesia Consultation ---
Anesthesia Consult and Med Hx Date of service: 07/07/20 - Airway Anesthetic Teeth Evaluation: Good ROM Head & Neck: Adequate Mental/Hyoid Distance: Adequate Mallampati Class: Class II - Pulmonary Exam CTA: Yes - Cardiac Exam Cardiac Exam: RRR - Pre-Operative Health Status ASA Pre-Surgery Classification: ASA2 Proposed Anesthetic Plan: MAC - Cardiovascular System Hx Hypertension: Yes - Central Nervous System Hx Psychiatric Problems: No - Endocrine Hx Renal Disease: Yes Hx End Stage Renal Disease: Yes - Other Systems Hx Cancer: No
--- NOTE | 2020-07-07 09:36 | Anesthesia Day of Surgery ---
Anesthesia Day of Surgery - Day of Surgery Patient Examined: Yes Patient H&P Reviewed: Yes Patient is NPO: Yes Beta Blockers: Yes
[2020-07-07] MEDS ORDERED: propofoL 200 MG/20 ML VIAL IV ONE ×2 (09:53→10:13)
[2020-07-07] MEDS ORDERED: LIDOCAINE MPF (2%) 20 MG/1 ML VIAL 5 ML ONE (09:53)
--- NOTE | 2020-07-07 10:45 | Operative Report ---
PROCEDURE: Esophagogastroduodenoscopy with biopsy and esophageal balloon dilation. INDICATIONS: This is a 75-year-old [place] female with an underlying history of hypertension, diabetes, end-stage renal disease. The patient is a possible candidate for kidney transplant. She has been having lately some problems with dysphagia. EGD was done to assess for the problem. DESCRIPTION OF PROCEDURE: The procedure was done after getting informed consent with MAC anesthesia. Instrument was passed through the hypopharynx into the esophagus, which showed some mild to moderate Jenny esophagitis. Photo documentation and biopsy was obtained. There was some mild benign esophageal stenosis noted. This was dilated with 20 mm balloon. At the end of the procedure that was maintained for a minute. There was also mild to moderate erosive esophagitis and biopsy was also done from the distal esophagus to assess for the severity of erosive esophagitis. Stomach showed antral gastritis. No gastric ulcers were noted in the straight or the retroverted view. Biopsy was done from the gastric antrum, gastric body and angular incisura to rule out for H. pylori and atrophic gastritis. The pylorus was patent. The duodenum in the first and second portion appeared normal. ASSESSMENT: Dysphagia, mild, benign esophageal stenosis, status post balloon dilation, Jenny esophagitis, mild to moderate erosive esophagitis, gastritis. PLAN: To treat the patient with PPI and fluconazole. Avoid aspirin and aspirin-related products. A colonoscopy will be done as part of colon polyp screening and the patient will be asked to follow up in the office in 1-2 weeks' time. The procedure was done in the GI lab with assistance of the GI lab team, which included RN, Gely Ortiz, maddi Medrano and with assistance of anesthesia. JOB# [id number] TRACIE/GALA
--- NOTE | 2020-07-07 10:47 | Procedure Note ---
Date of procedure: 07/07/20 Pre-op diagnosis: Dysphagia/ Colon Polyp Screening Post-op diagnosis: other (Mild to Moderate Jenny Esophagitis/ Mild to Moderate Erosive Esophagitis/ Mild Benign Esophageal Stenosis/ Gastritis/ Cecal Polyp/Moderate,Right Colon Diverticuli/Minor,Internal Hemorrhoid) Procedure: EGD with Biopsy and s/p Esophageal Balloon Dilation/Colonoscopy with Hot Snare Polypectomy Anesthesia: MAC Surgeon: RODNEY MARTINEZ Estimated blood loss: minimal Pathology: list Specimen disposition: to lab Condition: stable Disposition: same day (Avoid aspirin and NSAID and anticoagulants for 5 days; otherwise resume home medication. Treat with PPI and Fluconazole and follow up in 1 to 2 weeks ([phone]).)
--- NOTE | 2020-07-07 10:48 | Operative Report ---
PROCEDURE: Colonoscopy with hot snare polypectomy. INDICATIONS: This is a 75-year-old [place] female with underlying history of diabetes mellitus type 2, hypertension, end-stage renal disease. The patient is a possible candidate for kidney transplant. EGD for dysphagia had shown mild benign esophageal stenosis for which he underwent balloon dilation as well as yrkq-qy-oirflgvy Jenny esophagitis, erosive esophagitis and gastritis. DESCRIPTION OF PROCEDURE: Colonoscopy was done after getting informed consent with MAC anesthesia. Initial rectal exam was unremarkable. Instrument was passed through the rectum onto the cecum, which was identified by the ileocecal valve and the appendiceal orifice. Visualization was fair to good. There was a 10-12 mm cecal sessile polyp noted in the cecum that was removed by hot snare polypectomy and retrieved. In addition, there was moderate proximal colon diverticula. The remaining part of the proximal colon, the transverse colon, descending colon, and sigmoid showed normal mucosa. There was no evidence of any further polyps, colitis or diverticular disease and the rectum showed some minor internal hemorrhoid. ASSESSMENT: Colon polyp screening, solitary cecal polyp noted, removed by snare polypectomy and retrieved. Moderate proximal colon diverticula, minor internal hemorrhoid. There was minimal bleeding associated with the procedure. No complications associated with the procedure. The patient will be asked to take fiber supplements. Also, the patient will be treated with PPI and fluconazole because of the EGD findings of [id number] Jenny esophagitis and erosive esophagitis and gastritis. The patient will be asked to refrain from using aspirin and aspirin-related products and anticoagulants for the next 5 days and follow up in the office in 1-2 weeks' time. The procedure was done in the GI lab with assistance of the GI lab team, which included RN, Gely Ortiz, maddi Medrano and with assistance of anesthesia. JOB# [id number] TRACIE/GALA
--- NOTE | 2020-07-07 13:31 | Post Anesthesia Evaluation ---
- Post Anesthesia Evaluation Patient Participated: Yes Airway Patent: Yes Stable Respiratory Function: Yes Nausea/Vomiting: No Temp > 96.8F: Yes Pain Manageable: Yes Adequeate Hydration: Yes Anesthesia Complications: No Block Receding Appropriately: Not Applicable Patient on Ventilator: No
[2020-07-08 00:06] VITALS: BP 136/50
== END 2020-07-07 07:29 | disposition home or self-care (01) ==
LOC: GIO 07:28
DX: Z12.11 Encounter for screening for malignant neoplasm of colon (principal); K64.8 Other hemorrhoids; K57.30 Diverticulosis of large intestine without perforation or abscess without bleeding; K22.2 Esophageal obstruction; K63.5 Polyp of colon; K21.0 Gastro-esophageal reflux disease with esophagitis; K29.70 Gastritis, unspecified, without bleeding; I42.8 Other cardiomyopathies; I12.0 Hypertensive chronic kidney disease with stage 5 chronic kidney disease or end stage renal disease; E11.22 Type 2 diabetes mellitus with diabetic chronic kidney disease; N18.6 End stage renal disease; D64.9 Anemia, unspecified; Z98.890 Other specified postprocedural states; Z98.891 History of uterine scar from previous surgery; Z79.899 Other long term (current) drug therapy; Z79.4 Long term (current) use of insulin
CPT/HCPCS: 43239; 43249; 45385; 82962; 88305; 88342; C1726; J2704; J7030

== ENCOUNTER 2022-06-03 09:37 | Outpatient (CLI) | payer MEDICARE ==
--- NOTE | 2022-06-03 16:38 | Mammography Report ---
DEXA BONE DENSITY SCAN INDICATION / CLINICAL INFORMATION: Z78.0. 77 years Female COMPARISON: None available. LUMBAR SPINE, L1-L4: - Bone mineral density (BMD) = 0.884 g/cm2. - T-score = -1.5 - Z-score = 0.9 Change (%) since most recent prior (if available): None available. Change (%) since most recent prior (if available): None available. LEFT HIP, NECK : - Bone mineral density (BMD) = 0.587 g/cm2. - T-score = -2.4 - Z-score = -0.3 Change (%) since most recent prior (if available): None available. IMPRESSION: 1. WHO Classification: Osteopenia. Fracture Risk: Increased. 2. 10-Year Fracture Risk (FRAX) = Major Osteoporotic 16% / Hip: 4.6% FRAX generally not reported for patients with normal or osteoporotic BMD, in bnh-ciuhbtr-dvkiswv juan jose ents younger than age 50, or in patients undergoing pharmacotherapy BMD Reporting Guidelines (ISCD, 2015) BMD Reporting in Postmenopausal Women and in Men Age 50 and Older - T-scores are preferred. - The WHO densitometric classification is applicable. BMD Reporting in Females Prior to Menopause and in Males Younger Than Age 50 - Z-scores, not T-scores, are preferred. This is particularly important in children. - A Z-score of -2.0 or lower is defined as below the expected range for age, and a Z-score above -2.0 is within the expected range for age. - Osteoporosis cannot be diagnosed in men under age 50 on the basis of BMD alone. - The WHO diagnostic criteria may be applied to women in the menopausal transition. http://www.iscd.org/official-positions/7358-esaq-ztpkzuyf-positions-adult/ Signer Name: Vasquez Goodwin DO Signed: 06/03/2022 4:33 PM Workstation Name: [employer]
== END 2022-06-03 09:38 | disposition home or self-care (01) ==
LOC: MAMMO 09:37
PROVIDERS: ATTEND Nurse Practitioner Family
DX: M85.88 Other specified disorders of bone density and structure, other site (principal); Z78.0 Asymptomatic menopausal state
CPT/HCPCS: 77080